=== PATIENT | female | born 1935 | race Caucasian/White ===

== ENCOUNTER 2017-03-09 15:09 | Inpatient (IN) | payer MEDICARE ==
[2017-03-09] MEDS: PANTOPRAZOLE 40 MG TABLET.DR. PO (17:00)
[2017-03-09] MEDS: amLODIPine BESYLATE 5 MG TABLET PO (17:00)
[2017-03-09] MEDS: FERROUS SULFATE 325 MG TABLET. PO (17:00)
[2017-03-09] MEDS: LEVOTHYROXINE 112 MCG TABLET PO (17:00)
[2017-03-09] MEDS: MULTIVITAMIN I-VITE TABLET. PO (17:00)
[2017-03-09 18:29] LABS: ADD MAN DIFF? NO
[2017-03-09 18:32] LABS: BASO % 1 % (0-3); EOS # 0.1 x10^3/uL (0.0-0.7); EOS % 2 % (0-3); HEMATOCRIT 28.3 % (36.0-47.0); HEMOGLOBIN 9.2 g/dL (12.0-15.5); LYMPH # 1.7 x10^3/uL (1.0-4.8); LYMPH % 22 % (24-48); MEAN CORPUSCULAR HEMOGLOBIN 28 pg (25-35); MEAN CORPUSCULAR HGB CONC 32 g/dL (31-37); MEAN CORPUSCULAR VOLUME 88 fL (79-100); MONO # 0.5 x10^3/uL (0.0-1.1); MONO % 7 % (0-9); NEUT # 5.2 x10^3uL (1.8-7.7); NEUT % 69 % (31-73); PLATELET COUNT 208 x10^3/uL (140-400); RED BLOOD COUNT 3.23 x10^6/uL (3.50-5.40); RED CELL DISTRIBUTION WIDTH 15.3 % (11.5-14.5); WHITE BLOOD COUNT 7.5 x10^3/uL (4.0-11.0)
[2017-03-09 18:45] LABS: ALBUMIN/GLOBULIN RATIO 0.7 (1.0-1.7); ALK PHOS 102 U/L (46-116); ALT (SGPT) 15 U/L (14-59); ANION GAP 6 (6-14); AST (SGOT) 20 U/L (15-37); BLOOD UREA NITROGEN 26 mg/dL (7-20); BUN/CREATININE RATIO 19 (6-20); CALCIUM 8.6 mg/dL (8.5-10.1); CARBON DIOXIDE 28 mmol/L (21-32); CHLORIDE 107 mmol/L (98-107); CREATININE 1.4 mg/dL (0.6-1.0); GFR 36.3; GLUCOSE 184 mg/dL (70-99); POTASSIUM 5.5 mmol/L (3.5-5.1); SODIUM 141 mmol/L (136-145); TOTAL BILIRUBIN 0.1 mg/dL (0.2-1.0); TOTAL PROTEIN 7.2 g/dL (6.4-8.2)
[2017-03-09 18:57] LABS: BILIRUBIN,URINE NEGATIVE (NEG); COLOR,URINE YELLOW; GLUCOSE,URINE NEGATIVE (NEG); NITRITE,URINE POSITIVE (NEG); PROTEIN,URINE 100 mg/dL (NEG-TRACE); UROBILINOGEN,URINE 0.2 mg/dL (0.2 mg/dL)
[2017-03-09 19:09] LABS: CLARITY,URINE CLEAR
[2017-03-09 19:12] LABS: BACTERIA,URINE MANY /HPF (0-FEW); SQUAMOUS EPITHELIAL CELL,UR MANY /LPF; WBC,URINE >40 /HPF (0-4)
[2017-03-09 19:41] LABS: SEDIMENTATION RATE 45 (0-25)
[2017-03-09] MEDS ORDERED: oxyCODONE IR 5 MG TABLET PO (20:00)
[2017-03-09] MEDS: PIPERACILLIN/TAZOBACTAM 2.25 GM in IV NORMAL SALINE 50ML 50 ML IV (20:38)
[2017-03-09] MEDS: GABAPENTIN 100 MG CAPSULE. PO (20:42)
[2017-03-09] MEDS: CARISOPRODOL 350 MG TABLET PO (20:42)
[2017-03-09] MEDS: TAMSULOSIN 0.4 MG CAP.ER.24H. PO (20:42)
[2017-03-09] MEDS: HYDROCORTISONE 2.5% RECTAL CREAM 30GM TUBE. RC (21:33)
[2017-03-10] MEDS: PIPERACILLIN/TAZOBACTAM 2.25 GM in IV NORMAL SALINE 50ML 50 ML IV ×4 (00:01→23:00)
[2017-03-10 04:34] LABS: ADD MAN DIFF? NO
[2017-03-10 04:42] LABS: BASO % 1 % (0-3); EOS # 0.2 x10^3/uL (0.0-0.7); EOS % 2 % (0-3); HEMATOCRIT 27.7 % (36.0-47.0); HEMOGLOBIN 9.1 g/dL (12.0-15.5); LYMPH # 1.9 x10^3/uL (1.0-4.8); LYMPH % 26 % (24-48); MEAN CORPUSCULAR HEMOGLOBIN 29 pg (25-35); MEAN CORPUSCULAR HGB CONC 33 g/dL (31-37); MEAN CORPUSCULAR VOLUME 88 fL (79-100); MONO # 0.4 x10^3/uL (0.0-1.1); MONO % 6 % (0-9); NEUT # 4.6 x10^3uL (1.8-7.7); NEUT % 65 % (31-73); PLATELET COUNT 181 x10^3/uL (140-400); RED BLOOD COUNT 3.14 x10^6/uL (3.50-5.40); RED CELL DISTRIBUTION WIDTH 15.4 % (11.5-14.5); WHITE BLOOD COUNT 7.1 x10^3/uL (4.0-11.0)
[2017-03-10] MEDS: IV NORMAL SALINE 1000ML BAG 1,000 ML IV ×2 (04:45→12:46)
[2017-03-10 05:10] LABS: ALBUMIN 2.8 g/dL (3.4-5.0); ALBUMIN/GLOBULIN RATIO 0.7 (1.0-1.7); ALK PHOS 95 U/L (46-116); ALT (SGPT) 12 U/L (14-59); ANION GAP 8 (6-14); AST (SGOT) 18 U/L (15-37); BLOOD UREA NITROGEN 27 mg/dL (7-20); BUN/CREATININE RATIO 18 (6-20); CALCIUM 8.7 mg/dL (8.5-10.1); CARBON DIOXIDE 25 mmol/L (21-32); CHLORIDE 108 mmol/L (98-107); CREATININE 1.5 mg/dL (0.6-1.0); GFR 33.5; GLUCOSE 85 mg/dL (70-99); MAGNESIUM 1.9 mg/dL (1.8-2.4); SODIUM 141 mmol/L (136-145); TOTAL BILIRUBIN 0.3 mg/dL (0.2-1.0); TOTAL PROTEIN 6.6 g/dL (6.4-8.2)
[2017-03-10 05:30] LABS: POTASSIUM 6.2 mmol/L (3.5-5.1)
[2017-03-10] MEDS: LEVOTHYROXINE 112 MCG TABLET PO (05:45)
[2017-03-10] MEDS: PANTOPRAZOLE 40 MG TABLET.DR. PO ×2 (05:45→16:58)
[2017-03-10] MEDS: oxyCODONE IR 5 MG TABLET PO ×3 (05:48→14:10)
[2017-03-10] MEDS: SODIUM POLYSTYRENE SULFONATE 15 GM/60 ML ORAL.SUSP. PO (05:59)
[2017-03-10] MEDS: FERROUS SULFATE 325 MG TABLET. PO (08:33)
[2017-03-10] MEDS: MULTIVITAMIN I-VITE TABLET. PO (08:33)
[2017-03-10] MEDS: amLODIPine BESYLATE 5 MG TABLET PO (08:52)
[2017-03-10] MEDS: HYDROCORTISONE 2.5% RECTAL CREAM 30GM TUBE. RC ×2 (08:52→21:00)
[2017-03-10] MEDS: LACTOBACILLUS RHAMNOSUS GG 1 CAPSULE. PO ×2 (09:52→21:55)
[2017-03-10 12:52] LABS: POTASSIUM 4.7 mmol/L (3.5-5.1)
[2017-03-10 13:25] LABS: LACTIC ACID 0.9 mmol/L (0.4-2.0)
[2017-03-10 14:05] LABS: RETIC COUNT 0.8 % (0.5-2.5)
[2017-03-10 14:21] LABS: THYROID STIM HORMONE (TSH) 0.475 uIU/mL (0.358-3.74)
[2017-03-10 15:29] LABS: % SAT IRON 15 % (15-34); IRON,SERUM 24 ug/dL (50-170)
[2017-03-10 18:28] LABS: LACTATE DEHYDROGENASE 170 U/L (81-234)
[2017-03-10 18:28] LABS: FERRITIN 760 ng/mL (8-252); LIPASE 126 U/L (73-393); URIC ACID 5.9 mg/dL (2.6-6.0)
[2017-03-10] MEDS: TAMSULOSIN 0.4 MG CAP.ER.24H. PO (21:51)
[2017-03-10] MEDS: GABAPENTIN 100 MG CAPSULE. PO (21:51)
[2017-03-10] MEDS: CARISOPRODOL 350 MG TABLET PO (21:51)
[2017-03-11] MEDS: oxyCODONE IR 5 MG TABLET PO ×3 (02:45→13:12)
[2017-03-11] MEDS: PIPERACILLIN/TAZOBACTAM 2.25 GM in IV NORMAL SALINE 50ML 50 ML IV ×2 (06:18→13:58)
[2017-03-11] MEDS: LEVOTHYROXINE 112 MCG TABLET PO (06:18)
[2017-03-11] MEDS: PANTOPRAZOLE 40 MG TABLET.DR. PO ×2 (06:31→16:43)
[2017-03-11 06:41] LABS: ADD MAN DIFF? NO
[2017-03-11 07:09] LABS: BASO % 0 % (0-3); EOS # 0.2 x10^3/uL (0.0-0.7); EOS % 2 % (0-3); HEMOGLOBIN 8.2 g/dL (12.0-15.5); LYMPH # 1.6 x10^3/uL (1.0-4.8); LYMPH % 20 % (24-48); MEAN CORPUSCULAR HEMOGLOBIN 29 pg (25-35); MEAN CORPUSCULAR HGB CONC 33 g/dL (31-37); MEAN CORPUSCULAR VOLUME 88 fL (79-100); MONO # 0.5 x10^3/uL (0.0-1.1); MONO % 6 % (0-9); NEUT # 5.7 x10^3uL (1.8-7.7); NEUT % 71 % (31-73); PLATELET COUNT 150 x10^3/uL (140-400); RED BLOOD COUNT 2.84 x10^6/uL (3.50-5.40); RED CELL DISTRIBUTION WIDTH 15.3 % (11.5-14.5)
[2017-03-11 07:20] LABS: CREATINE KINASE 44 U/L (26-192)
[2017-03-11 07:21] LABS: ANION GAP 8 (6-14); BLOOD UREA NITROGEN 20 mg/dL (7-20); CALCIUM 7.5 mg/dL (8.5-10.1); CARBON DIOXIDE 27 mmol/L (21-32); CHLORIDE 107 mmol/L (98-107); CREATININE 1.5 mg/dL (0.6-1.0); GFR 33.5; GLUCOSE 86 mg/dL (70-99); MAGNESIUM 1.7 mg/dL (1.8-2.4); POTASSIUM 3.9 mmol/L (3.5-5.1); SODIUM 142 mmol/L (136-145)
[2017-03-11] MEDS: LACTOBACILLUS RHAMNOSUS GG 1 CAPSULE. PO ×2 (08:49→20:33)
[2017-03-11] MEDS: MULTIVITAMIN I-VITE TABLET. PO (08:49)
[2017-03-11] MEDS: HYDROCORTISONE 2.5% RECTAL CREAM 30GM TUBE. RC ×2 (08:49→20:34)
[2017-03-11] MEDS: FERROUS SULFATE 325 MG TABLET. PO (08:49)
[2017-03-11] MEDS: amLODIPine BESYLATE 5 MG TABLET PO (08:54)
[2017-03-11 14:14] LABS: POTASSIUM UR 35.1 mmol/L (Not Estab.)
[2017-03-11] MEDS: cefTRIAXone IV Push 1 GM VIAL. IVP (18:05)
[2017-03-11] MEDS: IV NORMAL SALINE 1000ML BAG 1,000 ML IV (18:06)
[2017-03-11] MEDS: diphenhydrAMINE HCL 25 MG CAPSULE PO (19:52)
[2017-03-11] MEDS: HYDROCORTISONE 1% TOPICAL OINTMENT 30GM TUBE. TP (20:32)
[2017-03-11] MEDS: CARISOPRODOL 350 MG TABLET PO (20:33)
[2017-03-11] MEDS: TAMSULOSIN 0.4 MG CAP.ER.24H. PO (20:33)
[2017-03-11] MEDS: GABAPENTIN 100 MG CAPSULE. PO (20:33)
[2017-03-12] MEDS: IV NORMAL SALINE 1000ML BAG 1,000 ML IV ×2 (04:52→17:06)
[2017-03-12] MEDS: diphenhydrAMINE HCL 25 MG CAPSULE PO (04:52)
[2017-03-12] MEDS: LEVOTHYROXINE 112 MCG TABLET PO (04:52)
[2017-03-12] MEDS: PANTOPRAZOLE 40 MG TABLET.DR. PO ×2 (04:52→17:08)
[2017-03-12 05:57] LABS: ADD MAN DIFF? NO
[2017-03-12 06:19] LABS: BASO % 0 % (0-3); EOS # 0.1 x10^3/uL (0.0-0.7); EOS % 2 % (0-3); HEMOGLOBIN 8.7 g/dL (12.0-15.5); LYMPH # 1.3 x10^3/uL (1.0-4.8); LYMPH % 21 % (24-48); MEAN CORPUSCULAR HEMOGLOBIN 29 pg (25-35); MEAN CORPUSCULAR HGB CONC 32 g/dL (31-37); MEAN CORPUSCULAR VOLUME 88 fL (79-100); MONO # 0.5 x10^3/uL (0.0-1.1); MONO % 8 % (0-9); NEUT # 4.3 x10^3uL (1.8-7.7); NEUT % 70 % (31-73); PLATELET COUNT 154 x10^3/uL (140-400); RED BLOOD COUNT 3.06 x10^6/uL (3.50-5.40); WHITE BLOOD COUNT 6.2 x10^3/uL (4.0-11.0)
[2017-03-12 06:29] LABS: ANION GAP 8 (6-14); BLOOD UREA NITROGEN 19 mg/dL (7-20); CARBON DIOXIDE 25 mmol/L (21-32); CHLORIDE 109 mmol/L (98-107); CREATININE 1.4 mg/dL (0.6-1.0); GFR 36.3; GLUCOSE 82 mg/dL (70-99); SODIUM 142 mmol/L (136-145)
[2017-03-12 06:35] LABS: CREATINE KINASE 43 U/L (26-192)
[2017-03-12] MEDS ORDERED: PROCHLORPERAZINE 10 MG/2 ML VIAL. IV (07:00)
[2017-03-12] MEDS ORDERED: ONDANSETRON PF 4 MG/2 ML VIAL. IV (07:00)
[2017-03-12] MEDS ORDERED: LIDOCAINE 1% PF 2 ML VIAL. ID (07:00)
[2017-03-12] MEDS: IV RINGERS,LACTATED 1000ML 1,000 ML IV (07:00)
[2017-03-12] MEDS ORDERED: fentaNYL PF VIAL 100 MCG/2 ML VIAL IV (07:00)
[2017-03-12] MEDS ORDERED: MORPHINE SULFATE 2 MG/ML DISP.SYRIN. IV (07:00)
[2017-03-12] MEDS ORDERED: HYDROmorphone 2 MG/ML VIAL IV (07:00)
[2017-03-12] MEDS ORDERED: SEVOFLURANE 31 TO 60 MINUTES. IH (08:01)
[2017-03-12] MEDS ORDERED: LIDOCAINE 2% PF Vial for OR 5 ML VIAL. (08:01)
[2017-03-12] MEDS ORDERED: PROPOFOL 20 ML IV (08:01)
[2017-03-12] MEDS ORDERED: MORPHINE SULFATE 10 MG/ML VIAL. (08:13)
[2017-03-12] MEDS ORDERED: ePHEDrine PF IN SALINE 50 MG/5 ML DISP.SYRIN IV (08:17)
[2017-03-12] MEDS ORDERED: ONDANSETRON PF 4 MG/2 ML VIAL. (08:23)
[2017-03-12] MEDS ORDERED: DEXAMETHASONE SOD PHOS 20 MG/5 ML VIAL. (08:23)
[2017-03-12] MEDS: fentaNYL PF VIAL 100 MCG/2 ML VIAL IV ×2 (08:46→08:56)
[2017-03-12] MEDS: HYDROCORTISONE 2.5% RECTAL CREAM 30GM TUBE. RC ×2 (09:00→20:05)
[2017-03-12] MEDS: FERROUS SULFATE 325 MG TABLET. PO (10:44)
[2017-03-12] MEDS: LACTOBACILLUS RHAMNOSUS GG 1 CAPSULE. PO ×2 (10:45→20:04)
[2017-03-12] MEDS: MULTIVITAMIN I-VITE TABLET. PO (10:45)
[2017-03-12] MEDS: amLODIPine BESYLATE 5 MG TABLET PO (10:46)
[2017-03-12] MEDS: HYDROCORTISONE 1% TOPICAL OINTMENT 30GM TUBE. TP ×2 (10:47→20:04)
[2017-03-12] MEDS: oxyCODONE IR 5 MG TABLET PO ×3 (10:49→20:04)
[2017-03-12] MEDS: ACETAMINOPHEN 325 MG TABLET. PO ×2 (10:49→17:23)
[2017-03-12] MEDS: cefTRIAXone IV Push 1 GM VIAL. IVP (17:09)
[2017-03-12] MEDS: CARISOPRODOL 350 MG TABLET PO (20:04)
[2017-03-12] MEDS: TAMSULOSIN 0.4 MG CAP.ER.24H. PO (20:04)
[2017-03-12] MEDS: GABAPENTIN 100 MG CAPSULE. PO (20:04)
[2017-03-13] MEDS: oxyCODONE IR 5 MG TABLET PO ×5 (01:20→20:35)
[2017-03-13] MEDS: ACETAMINOPHEN 325 MG TABLET. PO (02:55)
[2017-03-13 04:41] LABS: ADD MAN DIFF? NO
[2017-03-13 04:54] LABS: BASO % 0 % (0-3); EOS % 1 % (0-3); HEMOGLOBIN 8.3 g/dL (12.0-15.5); LYMPH # 1.2 x10^3/uL (1.0-4.8); LYMPH % 13 % (24-48); MEAN CORPUSCULAR HEMOGLOBIN 29 pg (25-35); MEAN CORPUSCULAR HGB CONC 33 g/dL (31-37); MEAN CORPUSCULAR VOLUME 87 fL (79-100); MONO # 0.5 x10^3/uL (0.0-1.1); MONO % 6 % (0-9); NEUT # 7.6 x10^3uL (1.8-7.7); NEUT % 81 % (31-73); PLATELET COUNT 166 x10^3/uL (140-400); RED BLOOD COUNT 2.88 x10^6/uL (3.50-5.40); RED CELL DISTRIBUTION WIDTH 14.7 % (11.5-14.5); WHITE BLOOD COUNT 9.3 x10^3/uL (4.0-11.0)
[2017-03-13 05:27] LABS: ANION GAP 12 (6-14); BLOOD UREA NITROGEN 20 mg/dL (7-20); CALCIUM 8.1 mg/dL (8.5-10.1); CARBON DIOXIDE 23 mmol/L (21-32); CHLORIDE 109 mmol/L (98-107); CREATINE KINASE 42 U/L (26-192); CREATININE 1.3 mg/dL (0.6-1.0); GFR 39.5; GLUCOSE 115 mg/dL (70-99); POTASSIUM 4.4 mmol/L (3.5-5.1); SODIUM 144 mmol/L (136-145)
[2017-03-13] MEDS: IV NORMAL SALINE 1000ML BAG 1,000 ML IV ×2 (06:18→17:14)
[2017-03-13] MEDS: LEVOTHYROXINE 112 MCG TABLET PO (06:19)
[2017-03-13] MEDS: PANTOPRAZOLE 40 MG TABLET.DR. PO ×2 (08:34→15:53)
[2017-03-13] MEDS: MULTIVITAMIN I-VITE TABLET. PO (08:34)
[2017-03-13] MEDS: amLODIPine BESYLATE 5 MG TABLET PO (08:35)
[2017-03-13] MEDS: LACTOBACILLUS RHAMNOSUS GG 1 CAPSULE. PO ×2 (08:35→20:35)
[2017-03-13] MEDS: FERROUS SULFATE 325 MG TABLET. PO (08:35)
[2017-03-13] MEDS: HYDROCORTISONE 2.5% RECTAL CREAM 30GM TUBE. RC ×2 (08:35→20:35)
[2017-03-13] MEDS: HYDROCORTISONE 1% TOPICAL OINTMENT 30GM TUBE. TP ×2 (08:35→20:35)
[2017-03-13] MEDS: cefTRIAXone IV Push 1 GM VIAL. IVP (17:14)
[2017-03-13] MEDS: GABAPENTIN 100 MG CAPSULE. PO (20:35)
[2017-03-13] MEDS: CARISOPRODOL 350 MG TABLET PO (20:35)
[2017-03-13] MEDS: TAMSULOSIN 0.4 MG CAP.ER.24H. PO (20:35)
[2017-03-14] MEDS: oxyCODONE IR 5 MG TABLET PO ×2 (03:44→09:05)
[2017-03-14 04:42] LABS: ADD MAN DIFF? NO
[2017-03-14 04:44] LABS: BASO # 0.1 x10^3/uL (0.0-0.2); BASO % 1 % (0-3); EOS # 0.2 x10^3/uL (0.0-0.7); EOS % 2 % (0-3); HEMATOCRIT 26.6 % (36.0-47.0); HEMOGLOBIN 8.6 g/dL (12.0-15.5); LYMPH # 1.6 x10^3/uL (1.0-4.8); LYMPH % 17 % (24-48); MEAN CORPUSCULAR HEMOGLOBIN 29 pg (25-35); MEAN CORPUSCULAR HGB CONC 32 g/dL (31-37); MEAN CORPUSCULAR VOLUME 88 fL (79-100); MONO # 0.5 x10^3/uL (0.0-1.1); MONO % 6 % (0-9); NEUT # 6.7 x10^3uL (1.8-7.7); NEUT % 74 % (31-73); PLATELET COUNT 175 x10^3/uL (140-400); RED BLOOD COUNT 3.02 x10^6/uL (3.50-5.40); RED CELL DISTRIBUTION WIDTH 15.4 % (11.5-14.5); WHITE BLOOD COUNT 9.1 x10^3/uL (4.0-11.0)
[2017-03-14 05:30] LABS: ANION GAP 10 (6-14); BLOOD UREA NITROGEN 24 mg/dL (7-20); CALCIUM 7.8 mg/dL (8.5-10.1); CARBON DIOXIDE 26 mmol/L (21-32); CHLORIDE 108 mmol/L (98-107); CREATINE KINASE 35 U/L (26-192); CREATININE 1.3 mg/dL (0.6-1.0); GFR 39.5; GLUCOSE 107 mg/dL (70-99); POTASSIUM 4.2 mmol/L (3.5-5.1); SODIUM 144 mmol/L (136-145)
[2017-03-14] MEDS: LEVOTHYROXINE 112 MCG TABLET PO (05:46)
[2017-03-14] MEDS: PANTOPRAZOLE 40 MG TABLET.DR. PO (05:46)
[2017-03-14] MEDS: IV NORMAL SALINE 1000ML BAG 1,000 ML IV (07:50)
[2017-03-14] MEDS: MULTIVITAMIN I-VITE TABLET. PO (09:00)
[2017-03-14] MEDS: HYDROCORTISONE 2.5% RECTAL CREAM 30GM TUBE. RC (09:00)
[2017-03-14] MEDS: LACTOBACILLUS RHAMNOSUS GG 1 CAPSULE. PO (09:00)
[2017-03-14] MEDS: FERROUS SULFATE 325 MG TABLET. PO (09:00)
[2017-03-14] MEDS: amLODIPine BESYLATE 5 MG TABLET PO (09:01)
[2017-03-14] MEDS: HYDROCORTISONE 1% TOPICAL OINTMENT 30GM TUBE. TP (09:06)
[2017-03-14] MEDS: cefTRIAXone IV Push 1 GM VIAL. IVP (13:00)
[2017-03-14 22:20] LABS: C DIFF BY PCR Negative (Negative)
== END 2017-03-14 16:12 | disposition home or self-care (01) | DRG 673 ==
LOC: 5 NORTH 15:09
PROC: 0JBR0ZZ Excision of Left Foot Subcutaneous Tissue and Fascia, Open Approach (ICD-10-PCS; principal; 2017-03-12 07:58)
DX: N17.9 Acute kidney failure, unspecified (principal); L89.624 Pressure ulcer of left heel, stage 4; A04.72 Enterocolitis due to Clostridium difficile, not specified as recurrent; E44.0 Moderate protein-calorie malnutrition; I13.0 Hypertensive heart and chronic kidney disease with heart failure and stage 1 through stage 4 chronic kidney disease, or unspecified chronic kidney disease; E87.5 Hyperkalemia; I50.9 Heart failure, unspecified; N39.0 Urinary tract infection, site not specified; N18.4 Chronic kidney disease, stage 4 (severe); L89.620 Pressure ulcer of left heel, unstageable; B96.20 Unspecified Escherichia coli [E. coli] as the cause of diseases classified elsewhere; D64.9 Anemia, unspecified; E03.9 Hypothyroidism, unspecified; E78.5 Hyperlipidemia, unspecified; G57.90 Unspecified mononeuropathy of unspecified lower limb; G89.29 Other chronic pain; I34.0 Nonrheumatic mitral (valve) insufficiency; K21.9 Gastro-esophageal reflux disease without esophagitis; M06.9 Rheumatoid arthritis, unspecified; Z96.653 Presence of artificial knee joint, bilateral; M19.90 Unspecified osteoarthritis, unspecified site; M24.561 Contracture, right knee; M24.562 Contracture, left knee; N20.0 Calculus of kidney; Z82.49 Family history of ischemic heart disease and other diseases of the circulatory system; Z90.710 Acquired absence of both cervix and uterus; Z87.81 Personal history of (healed) traumatic fracture
CPT/HCPCS: 36415; 71045; 73630; 80048; 80053; 81001; 82550; 82728; 83540; 83550; 83605; 83615; 83690; 83735; 84132; 84133; 84443; 84550; 85025; 85045; 85651; 87040; 87071; 87075; 87086; 87186; 87205; 87324; 93926; 93971; 97161-GP; 97165-GO; J0696; J1100; J2020; J2270; J2405; J2543; J2704; J3010; J7030; Q0163

== ENCOUNTER → 2017-03-22 | Outpatient (CLI) | payer MEDICARE | END | disposition home or self-care (01) | LOC: PMGWOUND 10:51 | DX: E11.621 Type 2 diabetes mellitus with foot ulcer (principal); L97.421 Non-pressure chronic ulcer of left heel and midfoot limited to breakdown of skin; L89.623 Pressure ulcer of left heel, stage 3; L98.411 Non-pressure chronic ulcer of buttock limited to breakdown of skin; L89.323 Pressure ulcer of left buttock, stage 3; E78.5 Hyperlipidemia, unspecified; K21.9 Gastro-esophageal reflux disease without esophagitis; E11.42 Type 2 diabetes mellitus with diabetic polyneuropathy; M19.90 Unspecified osteoarthritis, unspecified site; E03.9 Hypothyroidism, unspecified; E11.22 Type 2 diabetes mellitus with diabetic chronic kidney disease; I13.0 Hypertensive heart and chronic kidney disease with heart failure and stage 1 through stage 4 chronic kidney disease, or unspecified chronic kidney disease; N18.4 Chronic kidney disease, stage 4 (severe); I50.9 Heart failure, unspecified; G89.29 Other chronic pain; M06.9 Rheumatoid arthritis, unspecified; Z87.891 Personal history of nicotine dependence; Z79.4 Long term (current) use of insulin | CPT/HCPCS: 97597 ==

== ENCOUNTER → 2017-04-05 | Outpatient (CLI) | payer MEDICARE | END | disposition home or self-care (01) | LOC: PMGWOUND 10:25 | DX: E11.621 Type 2 diabetes mellitus with foot ulcer (principal); L97.421 Non-pressure chronic ulcer of left heel and midfoot limited to breakdown of skin; L89.623 Pressure ulcer of left heel, stage 3; L98.411 Non-pressure chronic ulcer of buttock limited to breakdown of skin; L89.323 Pressure ulcer of left buttock, stage 3; E78.5 Hyperlipidemia, unspecified; K21.9 Gastro-esophageal reflux disease without esophagitis; E11.42 Type 2 diabetes mellitus with diabetic polyneuropathy; M19.90 Unspecified osteoarthritis, unspecified site; E03.9 Hypothyroidism, unspecified; E11.22 Type 2 diabetes mellitus with diabetic chronic kidney disease; I13.0 Hypertensive heart and chronic kidney disease with heart failure and stage 1 through stage 4 chronic kidney disease, or unspecified chronic kidney disease; N18.4 Chronic kidney disease, stage 4 (severe); I50.9 Heart failure, unspecified; G89.29 Other chronic pain; M06.9 Rheumatoid arthritis, unspecified; Z87.891 Personal history of nicotine dependence; Z79.4 Long term (current) use of insulin; Z90.710 Acquired absence of both cervix and uterus | CPT/HCPCS: 97597 ==

== ENCOUNTER → 2017-04-12 | Outpatient (CLI) | payer MEDICARE | END | disposition home or self-care (01) | LOC: PMGWOUND 10:16 | DX: E11.621 Type 2 diabetes mellitus with foot ulcer (principal); L97.421 Non-pressure chronic ulcer of left heel and midfoot limited to breakdown of skin; L89.623 Pressure ulcer of left heel, stage 3; K21.9 Gastro-esophageal reflux disease without esophagitis; E11.22 Type 2 diabetes mellitus with diabetic chronic kidney disease; I13.0 Hypertensive heart and chronic kidney disease with heart failure and stage 1 through stage 4 chronic kidney disease, or unspecified chronic kidney disease; N18.4 Chronic kidney disease, stage 4 (severe); I50.9 Heart failure, unspecified; E78.5 Hyperlipidemia, unspecified; E03.9 Hypothyroidism, unspecified; G89.29 Other chronic pain; E11.42 Type 2 diabetes mellitus with diabetic polyneuropathy; M19.90 Unspecified osteoarthritis, unspecified site; M06.9 Rheumatoid arthritis, unspecified; Z87.891 Personal history of nicotine dependence; Z96.653 Presence of artificial knee joint, bilateral; Z90.710 Acquired absence of both cervix and uterus; Z79.4 Long term (current) use of insulin | CPT/HCPCS: 97597 ==

== ENCOUNTER → 2017-04-19 | Outpatient (CLI) | payer MEDICARE | END | disposition home or self-care (01) | LOC: PMGWOUND 10:25 | DX: E11.621 Type 2 diabetes mellitus with foot ulcer (principal); L97.421 Non-pressure chronic ulcer of left heel and midfoot limited to breakdown of skin; L89.623 Pressure ulcer of left heel, stage 3; K21.9 Gastro-esophageal reflux disease without esophagitis; E11.22 Type 2 diabetes mellitus with diabetic chronic kidney disease; I13.0 Hypertensive heart and chronic kidney disease with heart failure and stage 1 through stage 4 chronic kidney disease, or unspecified chronic kidney disease; N18.4 Chronic kidney disease, stage 4 (severe); I50.9 Heart failure, unspecified; E78.5 Hyperlipidemia, unspecified; E03.9 Hypothyroidism, unspecified; G89.29 Other chronic pain; E11.42 Type 2 diabetes mellitus with diabetic polyneuropathy; M19.90 Unspecified osteoarthritis, unspecified site; M06.9 Rheumatoid arthritis, unspecified; Z87.891 Personal history of nicotine dependence; Z96.653 Presence of artificial knee joint, bilateral; Z90.710 Acquired absence of both cervix and uterus; Z79.4 Long term (current) use of insulin | CPT/HCPCS: 97597 ==

== ENCOUNTER → 2017-04-26 | Outpatient (CLI) | payer MEDICARE | END | disposition home or self-care (01) | LOC: PMGWOUND 10:44 | DX: E11.621 Type 2 diabetes mellitus with foot ulcer (principal); L97.421 Non-pressure chronic ulcer of left heel and midfoot limited to breakdown of skin; L89.623 Pressure ulcer of left heel, stage 3; E78.5 Hyperlipidemia, unspecified; K21.9 Gastro-esophageal reflux disease without esophagitis; M19.90 Unspecified osteoarthritis, unspecified site; E03.9 Hypothyroidism, unspecified; Z90.710 Acquired absence of both cervix and uterus; Z87.891 Personal history of nicotine dependence; E11.42 Type 2 diabetes mellitus with diabetic polyneuropathy; E11.22 Type 2 diabetes mellitus with diabetic chronic kidney disease; I13.0 Hypertensive heart and chronic kidney disease with heart failure and stage 1 through stage 4 chronic kidney disease, or unspecified chronic kidney disease; N18.4 Chronic kidney disease, stage 4 (severe); I50.9 Heart failure, unspecified; Z79.4 Long term (current) use of insulin; M06.9 Rheumatoid arthritis, unspecified | CPT/HCPCS: 11042 ==

== ENCOUNTER → 2017-05-03 | Outpatient (CLI) | payer MEDICARE | END | disposition home or self-care (01) | LOC: PMGWOUND 10:51 | DX: E11.621 Type 2 diabetes mellitus with foot ulcer (principal); L97.421 Non-pressure chronic ulcer of left heel and midfoot limited to breakdown of skin; L89.623 Pressure ulcer of left heel, stage 3; E78.5 Hyperlipidemia, unspecified; K21.9 Gastro-esophageal reflux disease without esophagitis; M19.90 Unspecified osteoarthritis, unspecified site; E03.9 Hypothyroidism, unspecified; E11.42 Type 2 diabetes mellitus with diabetic polyneuropathy; E11.22 Type 2 diabetes mellitus with diabetic chronic kidney disease; I13.0 Hypertensive heart and chronic kidney disease with heart failure and stage 1 through stage 4 chronic kidney disease, or unspecified chronic kidney disease; N18.4 Chronic kidney disease, stage 4 (severe); I50.9 Heart failure, unspecified; M06.9 Rheumatoid arthritis, unspecified; G89.29 Other chronic pain; Z79.4 Long term (current) use of insulin; Z96.653 Presence of artificial knee joint, bilateral; Z90.710 Acquired absence of both cervix and uterus; Z87.891 Personal history of nicotine dependence | CPT/HCPCS: 97597 ==

== ENCOUNTER → 2017-05-10 | Outpatient (CLI) | payer MEDICARE | END | disposition home or self-care (01) | LOC: PMGWOUND 10:50 | DX: E11.621 Type 2 diabetes mellitus with foot ulcer (principal); L97.421 Non-pressure chronic ulcer of left heel and midfoot limited to breakdown of skin; L89.623 Pressure ulcer of left heel, stage 3; E11.622 Type 2 diabetes mellitus with other skin ulcer; L98.491 Non-pressure chronic ulcer of skin of other sites limited to breakdown of skin; L89.152 Pressure ulcer of sacral region, stage 2; E78.5 Hyperlipidemia, unspecified; K21.9 Gastro-esophageal reflux disease without esophagitis; M19.90 Unspecified osteoarthritis, unspecified site; E03.9 Hypothyroidism, unspecified; E11.42 Type 2 diabetes mellitus with diabetic polyneuropathy; E11.22 Type 2 diabetes mellitus with diabetic chronic kidney disease; I13.0 Hypertensive heart and chronic kidney disease with heart failure and stage 1 through stage 4 chronic kidney disease, or unspecified chronic kidney disease; N18.4 Chronic kidney disease, stage 4 (severe); I50.9 Heart failure, unspecified; M06.9 Rheumatoid arthritis, unspecified; G89.29 Other chronic pain; Z79.4 Long term (current) use of insulin; Z96.653 Presence of artificial knee joint, bilateral; Z90.710 Acquired absence of both cervix and uterus; Z87.891 Personal history of nicotine dependence | CPT/HCPCS: 97597 ==

== ENCOUNTER → 2017-05-17 | Outpatient (CLI) | payer MEDICARE | END | disposition home or self-care (01) | LOC: PMGWOUND 10:50 | DX: E11.621 Type 2 diabetes mellitus with foot ulcer (principal); L97.421 Non-pressure chronic ulcer of left heel and midfoot limited to breakdown of skin; L89.623 Pressure ulcer of left heel, stage 3; E11.622 Type 2 diabetes mellitus with other skin ulcer; L98.491 Non-pressure chronic ulcer of skin of other sites limited to breakdown of skin; L89.152 Pressure ulcer of sacral region, stage 2; E78.5 Hyperlipidemia, unspecified; K21.9 Gastro-esophageal reflux disease without esophagitis; M19.90 Unspecified osteoarthritis, unspecified site; E03.9 Hypothyroidism, unspecified; E11.42 Type 2 diabetes mellitus with diabetic polyneuropathy; E11.22 Type 2 diabetes mellitus with diabetic chronic kidney disease; I13.0 Hypertensive heart and chronic kidney disease with heart failure and stage 1 through stage 4 chronic kidney disease, or unspecified chronic kidney disease; N18.4 Chronic kidney disease, stage 4 (severe); I50.9 Heart failure, unspecified; M06.9 Rheumatoid arthritis, unspecified; G89.29 Other chronic pain; Z79.4 Long term (current) use of insulin; Z96.653 Presence of artificial knee joint, bilateral; Z90.710 Acquired absence of both cervix and uterus; Z87.891 Personal history of nicotine dependence | CPT/HCPCS: 97597 ==

== ENCOUNTER → 2017-05-24 | Outpatient (CLI) | payer MEDICARE | END | disposition home or self-care (01) | LOC: PMGWOUND 09:41 | DX: E11.621 Type 2 diabetes mellitus with foot ulcer (principal); L97.421 Non-pressure chronic ulcer of left heel and midfoot limited to breakdown of skin; L89.623 Pressure ulcer of left heel, stage 3; E11.622 Type 2 diabetes mellitus with other skin ulcer; L98.491 Non-pressure chronic ulcer of skin of other sites limited to breakdown of skin; L89.152 Pressure ulcer of sacral region, stage 2; K21.9 Gastro-esophageal reflux disease without esophagitis; M19.90 Unspecified osteoarthritis, unspecified site; E03.9 Hypothyroidism, unspecified; E11.42 Type 2 diabetes mellitus with diabetic polyneuropathy; E11.22 Type 2 diabetes mellitus with diabetic chronic kidney disease; I13.0 Hypertensive heart and chronic kidney disease with heart failure and stage 1 through stage 4 chronic kidney disease, or unspecified chronic kidney disease; N18.4 Chronic kidney disease, stage 4 (severe); I50.9 Heart failure, unspecified; M06.9 Rheumatoid arthritis, unspecified; G89.29 Other chronic pain; Z79.4 Long term (current) use of insulin; Z96.653 Presence of artificial knee joint, bilateral; Z90.710 Acquired absence of both cervix and uterus; Z87.891 Personal history of nicotine dependence | CPT/HCPCS: 11042 ==

== ENCOUNTER → 2017-05-30 | Outpatient (CLI) | payer MEDICARE | END | disposition home or self-care (01) | LOC: PMGWOUND 11:55 | DX: E11.621 Type 2 diabetes mellitus with foot ulcer (principal); L89.623 Pressure ulcer of left heel, stage 3; L97.421 Non-pressure chronic ulcer of left heel and midfoot limited to breakdown of skin; E11.622 Type 2 diabetes mellitus with other skin ulcer; L89.152 Pressure ulcer of sacral region, stage 2; L98.491 Non-pressure chronic ulcer of skin of other sites limited to breakdown of skin; K21.9 Gastro-esophageal reflux disease without esophagitis; M19.90 Unspecified osteoarthritis, unspecified site; E03.9 Hypothyroidism, unspecified; E11.42 Type 2 diabetes mellitus with diabetic polyneuropathy; E11.22 Type 2 diabetes mellitus with diabetic chronic kidney disease; I13.0 Hypertensive heart and chronic kidney disease with heart failure and stage 1 through stage 4 chronic kidney disease, or unspecified chronic kidney disease; N18.4 Chronic kidney disease, stage 4 (severe); I50.9 Heart failure, unspecified; M06.9 Rheumatoid arthritis, unspecified; G89.29 Other chronic pain; Z79.4 Long term (current) use of insulin; Z96.653 Presence of artificial knee joint, bilateral; Z90.710 Acquired absence of both cervix and uterus; Z87.891 Personal history of nicotine dependence | CPT/HCPCS: 99214 ==

== ENCOUNTER → 2017-06-07 | Outpatient (CLI) | payer MEDICARE | END | disposition home or self-care (01) | LOC: PMGWOUND 10:59 | DX: E11.622 Type 2 diabetes mellitus with other skin ulcer (principal); L89.150 Pressure ulcer of sacral region, unstageable; L98.491 Non-pressure chronic ulcer of skin of other sites limited to breakdown of skin; E11.42 Type 2 diabetes mellitus with diabetic polyneuropathy; E11.22 Type 2 diabetes mellitus with diabetic chronic kidney disease; I13.0 Hypertensive heart and chronic kidney disease with heart failure and stage 1 through stage 4 chronic kidney disease, or unspecified chronic kidney disease; N18.4 Chronic kidney disease, stage 4 (severe); I50.9 Heart failure, unspecified; K21.9 Gastro-esophageal reflux disease without esophagitis; M19.90 Unspecified osteoarthritis, unspecified site; E03.9 Hypothyroidism, unspecified; M06.9 Rheumatoid arthritis, unspecified; G89.29 Other chronic pain; Z79.4 Long term (current) use of insulin; Z96.653 Presence of artificial knee joint, bilateral; Z90.710 Acquired absence of both cervix and uterus; Z87.891 Personal history of nicotine dependence | CPT/HCPCS: 99214 ==

== ENCOUNTER → 2017-06-14 | Outpatient (CLI) | payer MEDICARE | END | disposition home or self-care (01) | LOC: PMGWOUND 11:00 | DX: E11.622 Type 2 diabetes mellitus with other skin ulcer (principal); L89.150 Pressure ulcer of sacral region, unstageable; E11.621 Type 2 diabetes mellitus with foot ulcer; L89.623 Pressure ulcer of left heel, stage 3; L97.421 Non-pressure chronic ulcer of left heel and midfoot limited to breakdown of skin; E11.42 Type 2 diabetes mellitus with diabetic polyneuropathy; E11.22 Type 2 diabetes mellitus with diabetic chronic kidney disease; I13.0 Hypertensive heart and chronic kidney disease with heart failure and stage 1 through stage 4 chronic kidney disease, or unspecified chronic kidney disease; N18.4 Chronic kidney disease, stage 4 (severe); I50.9 Heart failure, unspecified; K21.9 Gastro-esophageal reflux disease without esophagitis; M19.90 Unspecified osteoarthritis, unspecified site; E78.5 Hyperlipidemia, unspecified; E03.9 Hypothyroidism, unspecified; M06.9 Rheumatoid arthritis, unspecified; G89.29 Other chronic pain; Z79.4 Long term (current) use of insulin; Z96.653 Presence of artificial knee joint, bilateral; Z90.710 Acquired absence of both cervix and uterus; Z87.891 Personal history of nicotine dependence | CPT/HCPCS: 97597 ==

== ENCOUNTER → 2017-06-21 | Outpatient (CLI) | payer MEDICARE | END | disposition home or self-care (01) | LOC: PMGWOUND 10:41 | DX: E11.621 Type 2 diabetes mellitus with foot ulcer (principal); L89.150 Pressure ulcer of sacral region, unstageable; L89.623 Pressure ulcer of left heel, stage 3; L97.421 Non-pressure chronic ulcer of left heel and midfoot limited to breakdown of skin; E11.622 Type 2 diabetes mellitus with other skin ulcer; L98.491 Non-pressure chronic ulcer of skin of other sites limited to breakdown of skin; K21.9 Gastro-esophageal reflux disease without esophagitis; E11.22 Type 2 diabetes mellitus with diabetic chronic kidney disease; I13.0 Hypertensive heart and chronic kidney disease with heart failure and stage 1 through stage 4 chronic kidney disease, or unspecified chronic kidney disease; N18.4 Chronic kidney disease, stage 4 (severe); I50.9 Heart failure, unspecified; E03.9 Hypothyroidism, unspecified; G89.29 Other chronic pain; M06.9 Rheumatoid arthritis, unspecified; E11.42 Type 2 diabetes mellitus with diabetic polyneuropathy; E78.5 Hyperlipidemia, unspecified; M19.90 Unspecified osteoarthritis, unspecified site; Z96.653 Presence of artificial knee joint, bilateral; Z90.710 Acquired absence of both cervix and uterus; Z79.4 Long term (current) use of insulin; Z87.891 Personal history of nicotine dependence; Z99.2 Dependence on renal dialysis | CPT/HCPCS: 99214 ==

== ENCOUNTER 2017-07-05 11:56 | Day surgery (SDC) | payer MEDICARE ==
[~2017-07-05 11:56] MED LIST: LIDOCAINE 1% PF 2 ML VIAL. ID; MORPHINE SULFATE 4 MG/ML DISP.SYRIN. IV; ONDANSETRON PF 4 MG/2 ML VIAL. IV; PROCHLORPERAZINE 10 MG/2 ML VIAL. IV; fentaNYL PF VIAL 100 MCG/2 ML VIAL IV
[2017-07-05] MEDS: IV RINGERS,LACTATED 1000ML 1,000 ML IV (13:05)
[2017-07-05] MEDS ORDERED: ROCURONIUM 50 MG/5 ML VIAL. (13:46)
[2017-07-05] MEDS ORDERED: LIDOCAINE 1% PF 5 ML VIAL. (13:47)
[2017-07-05] MEDS ORDERED: ONDANSETRON PF 4 MG/2 ML VIAL. (13:47)
[2017-07-05] MEDS ORDERED: PROPOFOL 20 ML IV (13:47)
[2017-07-05] MEDS ORDERED: fentaNYL PF VIAL 100 MCG/2 ML VIAL (13:47)
[2017-07-05] MEDS ORDERED: PHENYLEPHRINE in 0.9% NACL PF 1 MG/10 ML SYRINGE. IV ×2 (14:20→14:22)
[2017-07-05] MEDS ORDERED: GLYCOPYRROLATE 1 MG/5 ML VIAL. (14:20)
[2017-07-05] MEDS ORDERED: NEOSTIGMINE 10 MG/10 ML VIAL. (14:22)
[2017-07-05] MEDS: fentaNYL PF VIAL 100 MCG/2 ML VIAL IV ×2 (15:03→15:20)
[2017-07-05] MEDS: ACETAMINOPHEN 325 MG TABLET. PO (15:22)
== END 2017-07-05 16:24 | disposition home or self-care (01) ==
LOC: SURG 11:56
DX: L89.159 Pressure ulcer of sacral region, unspecified stage (principal); E78.00 Pure hypercholesterolemia, unspecified; K21.9 Gastro-esophageal reflux disease without esophagitis; M19.90 Unspecified osteoarthritis, unspecified site; E11.622 Type 2 diabetes mellitus with other skin ulcer; E11.22 Type 2 diabetes mellitus with diabetic chronic kidney disease; E11.42 Type 2 diabetes mellitus with diabetic polyneuropathy; E11.621 Type 2 diabetes mellitus with foot ulcer; I12.9 Hypertensive chronic kidney disease with stage 1 through stage 4 chronic kidney disease, or unspecified chronic kidney disease; N18.4 Chronic kidney disease, stage 4 (severe); M06.9 Rheumatoid arthritis, unspecified; D64.9 Anemia, unspecified; Z96.653 Presence of artificial knee joint, bilateral; E03.9 Hypothyroidism, unspecified; Z98.890 Other specified postprocedural states; Z98.41 Cataract extraction status, right eye; Z90.710 Acquired absence of both cervix and uterus; Z86.010 Personal history of colon polyps; Z90.49 Acquired absence of other specified parts of digestive tract; Z87.440 Personal history of urinary (tract) infections; Z98.42 Cataract extraction status, left eye; E78.5 Hyperlipidemia, unspecified; Z87.891 Personal history of nicotine dependence
CPT/HCPCS: 11042; 88304; A7015; J2370; J2405; J2704; J2710; J3010; J3490

== ENCOUNTER → 2017-07-12 | Outpatient (CLI) | payer MEDICARE | END | disposition home or self-care (01) | LOC: PMGWOUND 11:02 | DX: E11.622 Type 2 diabetes mellitus with other skin ulcer (principal); L89.154 Pressure ulcer of sacral region, stage 4; L98.492 Non-pressure chronic ulcer of skin of other sites with fat layer exposed; E11.621 Type 2 diabetes mellitus with foot ulcer; L89.623 Pressure ulcer of left heel, stage 3; L97.421 Non-pressure chronic ulcer of left heel and midfoot limited to breakdown of skin; L98.491 Non-pressure chronic ulcer of skin of other sites limited to breakdown of skin; K21.9 Gastro-esophageal reflux disease without esophagitis; E11.22 Type 2 diabetes mellitus with diabetic chronic kidney disease; I13.0 Hypertensive heart and chronic kidney disease with heart failure and stage 1 through stage 4 chronic kidney disease, or unspecified chronic kidney disease; N18.4 Chronic kidney disease, stage 4 (severe); I50.9 Heart failure, unspecified; E03.9 Hypothyroidism, unspecified; G89.29 Other chronic pain; M06.9 Rheumatoid arthritis, unspecified; E11.42 Type 2 diabetes mellitus with diabetic polyneuropathy; E78.5 Hyperlipidemia, unspecified; M19.90 Unspecified osteoarthritis, unspecified site; Z96.653 Presence of artificial knee joint, bilateral; Z90.710 Acquired absence of both cervix and uterus; Z79.4 Long term (current) use of insulin; Z87.891 Personal history of nicotine dependence; Z99.2 Dependence on renal dialysis | CPT/HCPCS: 97597; 97598; 97605 ==

== ENCOUNTER → 2017-07-19 | Outpatient (CLI) | payer MEDICARE | END | disposition home or self-care (01) | LOC: PMGWOUND 10:13 | DX: E11.622 Type 2 diabetes mellitus with other skin ulcer (principal); L89.154 Pressure ulcer of sacral region, stage 4; L98.492 Non-pressure chronic ulcer of skin of other sites with fat layer exposed; K21.9 Gastro-esophageal reflux disease without esophagitis; E11.22 Type 2 diabetes mellitus with diabetic chronic kidney disease; I13.0 Hypertensive heart and chronic kidney disease with heart failure and stage 1 through stage 4 chronic kidney disease, or unspecified chronic kidney disease; N18.4 Chronic kidney disease, stage 4 (severe); I50.9 Heart failure, unspecified; E03.9 Hypothyroidism, unspecified; G89.29 Other chronic pain; M06.9 Rheumatoid arthritis, unspecified; E11.42 Type 2 diabetes mellitus with diabetic polyneuropathy; E78.5 Hyperlipidemia, unspecified; Z99.2 Dependence on renal dialysis; M19.90 Unspecified osteoarthritis, unspecified site; Z96.653 Presence of artificial knee joint, bilateral; Z90.710 Acquired absence of both cervix and uterus; Z79.4 Long term (current) use of insulin; Z87.891 Personal history of nicotine dependence; E78.00 Pure hypercholesterolemia, unspecified | CPT/HCPCS: 97597; 97605 ==

== ENCOUNTER → 2017-07-26 | Outpatient (CLI) | payer MEDICARE | END | disposition home or self-care (01) | LOC: PMGWOUND 11:30 | DX: E11.622 Type 2 diabetes mellitus with other skin ulcer (principal); L89.154 Pressure ulcer of sacral region, stage 4; L98.492 Non-pressure chronic ulcer of skin of other sites with fat layer exposed; K21.9 Gastro-esophageal reflux disease without esophagitis; E11.22 Type 2 diabetes mellitus with diabetic chronic kidney disease; I13.0 Hypertensive heart and chronic kidney disease with heart failure and stage 1 through stage 4 chronic kidney disease, or unspecified chronic kidney disease; N18.4 Chronic kidney disease, stage 4 (severe); I50.9 Heart failure, unspecified; E03.9 Hypothyroidism, unspecified; G89.29 Other chronic pain; M06.9 Rheumatoid arthritis, unspecified; E11.42 Type 2 diabetes mellitus with diabetic polyneuropathy; E78.5 Hyperlipidemia, unspecified; Z99.2 Dependence on renal dialysis; M19.90 Unspecified osteoarthritis, unspecified site; Z96.653 Presence of artificial knee joint, bilateral; Z90.710 Acquired absence of both cervix and uterus; Z79.4 Long term (current) use of insulin; Z87.891 Personal history of nicotine dependence; E78.00 Pure hypercholesterolemia, unspecified | CPT/HCPCS: 11042; 97597; 97605 ==

== ENCOUNTER → 2017-08-02 | Outpatient (CLI) | payer MEDICARE | END | disposition home or self-care (01) | LOC: PMGWOUND 10:51 | DX: E11.622 Type 2 diabetes mellitus with other skin ulcer (principal); L98.491 Non-pressure chronic ulcer of skin of other sites limited to breakdown of skin; L89.154 Pressure ulcer of sacral region, stage 4; K21.9 Gastro-esophageal reflux disease without esophagitis; E11.22 Type 2 diabetes mellitus with diabetic chronic kidney disease; I13.0 Hypertensive heart and chronic kidney disease with heart failure and stage 1 through stage 4 chronic kidney disease, or unspecified chronic kidney disease; N18.4 Chronic kidney disease, stage 4 (severe); I50.9 Heart failure, unspecified; E78.5 Hyperlipidemia, unspecified; E03.9 Hypothyroidism, unspecified; G89.29 Other chronic pain; E78.00 Pure hypercholesterolemia, unspecified; E11.42 Type 2 diabetes mellitus with diabetic polyneuropathy; M19.90 Unspecified osteoarthritis, unspecified site; M06.9 Rheumatoid arthritis, unspecified; Z90.49 Acquired absence of other specified parts of digestive tract; Z90.710 Acquired absence of both cervix and uterus; Z87.891 Personal history of nicotine dependence; Z96.653 Presence of artificial knee joint, bilateral; Z79.4 Long term (current) use of insulin; Z99.2 Dependence on renal dialysis | CPT/HCPCS: 97597 ==

== ENCOUNTER → 2017-08-10 | Outpatient (CLI) | payer MEDICARE | END | disposition home or self-care (01) | LOC: US 13:28 | DX: M79.89 Other specified soft tissue disorders (principal); I13.0 Hypertensive heart and chronic kidney disease with heart failure and stage 1 through stage 4 chronic kidney disease, or unspecified chronic kidney disease; E11.22 Type 2 diabetes mellitus with diabetic chronic kidney disease; I50.9 Heart failure, unspecified; N18.4 Chronic kidney disease, stage 4 (severe); K21.9 Gastro-esophageal reflux disease without esophagitis; E87.5 Hyperkalemia; E78.00 Pure hypercholesterolemia, unspecified | CPT/HCPCS: 93971 ==

== ENCOUNTER → 2017-08-23 | Outpatient (CLI) | payer MEDICARE | END | disposition home or self-care (01) | LOC: PMGWOUND 10:30 | DX: E11.622 Type 2 diabetes mellitus with other skin ulcer (principal); L89.154 Pressure ulcer of sacral region, stage 4; L89.893 Pressure ulcer of other site, stage 3; L98.491 Non-pressure chronic ulcer of skin of other sites limited to breakdown of skin; E11.621 Type 2 diabetes mellitus with foot ulcer; L97.421 Non-pressure chronic ulcer of left heel and midfoot limited to breakdown of skin; K21.9 Gastro-esophageal reflux disease without esophagitis; E78.00 Pure hypercholesterolemia, unspecified; E03.9 Hypothyroidism, unspecified; E11.22 Type 2 diabetes mellitus with diabetic chronic kidney disease; I13.0 Hypertensive heart and chronic kidney disease with heart failure and stage 1 through stage 4 chronic kidney disease, or unspecified chronic kidney disease; N18.4 Chronic kidney disease, stage 4 (severe); I50.9 Heart failure, unspecified; G89.29 Other chronic pain; E11.42 Type 2 diabetes mellitus with diabetic polyneuropathy; E11.36 Type 2 diabetes mellitus with diabetic cataract; E78.5 Hyperlipidemia, unspecified; M06.9 Rheumatoid arthritis, unspecified; Z90.710 Acquired absence of both cervix and uterus; Z90.49 Acquired absence of other specified parts of digestive tract; Z96.653 Presence of artificial knee joint, bilateral; Z87.891 Personal history of nicotine dependence; Z79.4 Long term (current) use of insulin; Z99.2 Dependence on renal dialysis | CPT/HCPCS: 11042; 97597 ==

== ENCOUNTER → 2017-08-30 | Outpatient (CLI) | payer MEDICARE | END | disposition home or self-care (01) | LOC: PMGWOUND 10:45 | DX: E11.621 Type 2 diabetes mellitus with foot ulcer (principal); L97.421 Non-pressure chronic ulcer of left heel and midfoot limited to breakdown of skin; E11.622 Type 2 diabetes mellitus with other skin ulcer; L89.154 Pressure ulcer of sacral region, stage 4; L89.893 Pressure ulcer of other site, stage 3; L98.491 Non-pressure chronic ulcer of skin of other sites limited to breakdown of skin; K21.9 Gastro-esophageal reflux disease without esophagitis; E03.9 Hypothyroidism, unspecified; E11.22 Type 2 diabetes mellitus with diabetic chronic kidney disease; I13.0 Hypertensive heart and chronic kidney disease with heart failure and stage 1 through stage 4 chronic kidney disease, or unspecified chronic kidney disease; N18.4 Chronic kidney disease, stage 4 (severe); I50.9 Heart failure, unspecified; G89.29 Other chronic pain; E11.42 Type 2 diabetes mellitus with diabetic polyneuropathy; E11.36 Type 2 diabetes mellitus with diabetic cataract; E78.5 Hyperlipidemia, unspecified; E78.00 Pure hypercholesterolemia, unspecified; M06.9 Rheumatoid arthritis, unspecified; Z90.710 Acquired absence of both cervix and uterus; Z90.49 Acquired absence of other specified parts of digestive tract; Z96.653 Presence of artificial knee joint, bilateral; Z87.891 Personal history of nicotine dependence; Z79.4 Long term (current) use of insulin; Z99.2 Dependence on renal dialysis | CPT/HCPCS: 97597 ==

== ENCOUNTER → 2017-09-13 | Outpatient (CLI) | payer MEDICARE ==
[2017-07-05 15:38] VITALS: BP 115/64
[~2017-09-13] MED LIST changes: +ACET325T9 PO; +AMLO5TAB2 PO; +ASPI-612 PO; +CARI350T PO; +CARI350T14 PO; +CEFP100T PO; +CHOL100013 PO; +ERGO500027 PO; +ESTR1TAB15 PO; +FERR325T72 PO; +FURO-69 PO; +GABA-585 PO; +GABA-586 PO; +HYDR-2678 PO; +HYDR30CR60 RC; +LACT1CAP19 PO; +LEVO112T2 PO; -LIDOCAINE 1% PF 2 ML VIAL. ID; -MORPHINE SULFATE 4 MG/ML DISP.SYRIN. IV; +MULT-683 PO; +OMEP40CA5 PO; -ONDANSETRON PF 4 MG/2 ML VIAL. IV; +OXYC15TA PO; +PHEN100C PO; -PROCHLORPERAZINE 10 MG/2 ML VIAL. IV; +Polyethylene Glycol 3350 PO; +SODI650T PO; +TAMS0.4C97 PO; +TEMA15CA PO; -fentaNYL PF VIAL 100 MCG/2 ML VIAL IV; +gabapentin
== END | disposition home or self-care (01) ==
LOC: PMGWOUND 10:34
PROVIDERS: ATTEND Preventive Medicine Undersea and Hyperbaric Medicine
DX: E11.621 Type 2 diabetes mellitus with foot ulcer (principal); L97.421 Non-pressure chronic ulcer of left heel and midfoot limited to breakdown of skin; E11.622 Type 2 diabetes mellitus with other skin ulcer; L89.154 Pressure ulcer of sacral region, stage 4; L89.893 Pressure ulcer of other site, stage 3; L98.491 Non-pressure chronic ulcer of skin of other sites limited to breakdown of skin; K21.9 Gastro-esophageal reflux disease without esophagitis; E03.9 Hypothyroidism, unspecified; E11.22 Type 2 diabetes mellitus with diabetic chronic kidney disease; I13.0 Hypertensive heart and chronic kidney disease with heart failure and stage 1 through stage 4 chronic kidney disease, or unspecified chronic kidney disease; N18.4 Chronic kidney disease, stage 4 (severe); I50.9 Heart failure, unspecified; G89.29 Other chronic pain; E11.42 Type 2 diabetes mellitus with diabetic polyneuropathy; E11.36 Type 2 diabetes mellitus with diabetic cataract; E78.5 Hyperlipidemia, unspecified; E78.00 Pure hypercholesterolemia, unspecified; M06.9 Rheumatoid arthritis, unspecified; Z90.710 Acquired absence of both cervix and uterus; Z90.49 Acquired absence of other specified parts of digestive tract; Z96.653 Presence of artificial knee joint, bilateral; Z87.891 Personal history of nicotine dependence; Z79.4 Long term (current) use of insulin; Z99.2 Dependence on renal dialysis
CPT/HCPCS: 97597

== ENCOUNTER → 2017-09-20 | Outpatient (CLI) | payer MEDICARE ==
[2017-07-05 15:38] VITALS: BP 115/64
== END | disposition home or self-care (01) ==
LOC: PMGWOUND 10:35
PROVIDERS: ATTEND Preventive Medicine Undersea and Hyperbaric Medicine
DX: E11.622 Type 2 diabetes mellitus with other skin ulcer (principal); L89.154 Pressure ulcer of sacral region, stage 4; L89.893 Pressure ulcer of other site, stage 3; I13.0 Hypertensive heart and chronic kidney disease with heart failure and stage 1 through stage 4 chronic kidney disease, or unspecified chronic kidney disease; E11.22 Type 2 diabetes mellitus with diabetic chronic kidney disease; N18.4 Chronic kidney disease, stage 4 (severe); I50.9 Heart failure, unspecified; E11.36 Type 2 diabetes mellitus with diabetic cataract; E11.42 Type 2 diabetes mellitus with diabetic polyneuropathy; M06.9 Rheumatoid arthritis, unspecified; K21.9 Gastro-esophageal reflux disease without esophagitis; E78.5 Hyperlipidemia, unspecified; E03.9 Hypothyroidism, unspecified; E78.00 Pure hypercholesterolemia, unspecified; L84 Corns and callosities; Z90.710 Acquired absence of both cervix and uterus; Z90.49 Acquired absence of other specified parts of digestive tract; Z96.653 Presence of artificial knee joint, bilateral; Z99.2 Dependence on renal dialysis; Z79.4 Long term (current) use of insulin; Z87.891 Personal history of nicotine dependence
CPT/HCPCS: 97597

== ENCOUNTER → 2017-09-27 | Outpatient (CLI) | payer MEDICARE ==
[2017-07-05 15:38] VITALS: BP 115/64
== END | disposition home or self-care (01) ==
LOC: PMGWOUND 10:27
PROVIDERS: ATTEND Preventive Medicine Undersea and Hyperbaric Medicine
DX: E11.621 Type 2 diabetes mellitus with foot ulcer (principal); L97.521 Non-pressure chronic ulcer of other part of left foot limited to breakdown of skin; E11.622 Type 2 diabetes mellitus with other skin ulcer; L98.491 Non-pressure chronic ulcer of skin of other sites limited to breakdown of skin; L89.154 Pressure ulcer of sacral region, stage 4; L89.623 Pressure ulcer of left heel, stage 3; I13.2 Hypertensive heart and chronic kidney disease with heart failure and with stage 5 chronic kidney disease, or end stage renal disease; E11.22 Type 2 diabetes mellitus with diabetic chronic kidney disease; N18.4 Chronic kidney disease, stage 4 (severe); I50.9 Heart failure, unspecified; E11.36 Type 2 diabetes mellitus with diabetic cataract; E11.42 Type 2 diabetes mellitus with diabetic polyneuropathy; K21.9 Gastro-esophageal reflux disease without esophagitis; L84 Corns and callosities; E03.9 Hypothyroidism, unspecified; E78.5 Hyperlipidemia, unspecified; E78.00 Pure hypercholesterolemia, unspecified; M06.9 Rheumatoid arthritis, unspecified; G89.29 Other chronic pain; Z90.49 Acquired absence of other specified parts of digestive tract; Z90.710 Acquired absence of both cervix and uterus; Z99.2 Dependence on renal dialysis; Z96.653 Presence of artificial knee joint, bilateral; Z79.4 Long term (current) use of insulin; Z87.891 Personal history of nicotine dependence
CPT/HCPCS: 97597

== ENCOUNTER → 2017-10-04 | Outpatient (CLI) | payer MEDICARE ==
[2017-07-05 15:38] VITALS: BP 115/64
[~2017-10-04] MED LIST changes: -AMLO5TAB2 PO; +AMLO5TAB7 PO
== END | disposition home or self-care (01) ==
LOC: PMGWOUND 10:32
PROVIDERS: ATTEND Preventive Medicine Undersea and Hyperbaric Medicine
DX: E11.621 Type 2 diabetes mellitus with foot ulcer (principal); L89.154 Pressure ulcer of sacral region, stage 4; L98.491 Non-pressure chronic ulcer of skin of other sites limited to breakdown of skin; L89.893 Pressure ulcer of other site, stage 3; L97.521 Non-pressure chronic ulcer of other part of left foot limited to breakdown of skin; S71.111A Laceration without foreign body, right thigh, initial encounter; I12.9 Hypertensive chronic kidney disease with stage 1 through stage 4 chronic kidney disease, or unspecified chronic kidney disease; E11.22 Type 2 diabetes mellitus with diabetic chronic kidney disease; N18.4 Chronic kidney disease, stage 4 (severe); E11.36 Type 2 diabetes mellitus with diabetic cataract; E11.42 Type 2 diabetes mellitus with diabetic polyneuropathy; K21.9 Gastro-esophageal reflux disease without esophagitis; G89.29 Other chronic pain; M54.9 Dorsalgia, unspecified; M06.9 Rheumatoid arthritis, unspecified; E78.5 Hyperlipidemia, unspecified; E78.00 Pure hypercholesterolemia, unspecified; E03.9 Hypothyroidism, unspecified; L84 Corns and callosities; Z96.653 Presence of artificial knee joint, bilateral; Z99.2 Dependence on renal dialysis; Z79.4 Long term (current) use of insulin; Z90.710 Acquired absence of both cervix and uterus; Z90.49 Acquired absence of other specified parts of digestive tract; Z87.891 Personal history of nicotine dependence; X58.XXXA Exposure to other specified factors, initial encounter; Y93.89 Activity, other specified; Y92.89 Other specified places as the place of occurrence of the external cause; Y99.8 Other external cause status
CPT/HCPCS: 97597

== ENCOUNTER → 2017-10-11 | Outpatient (CLI) | payer MEDICARE ==
[2017-07-05 15:38] VITALS: BP 115/64
== END | disposition home or self-care (01) ==
LOC: PMGWOUND 11:28
PROVIDERS: ATTEND Preventive Medicine Undersea and Hyperbaric Medicine
DX: E11.621 Type 2 diabetes mellitus with foot ulcer (principal); L89.154 Pressure ulcer of sacral region, stage 4; L98.491 Non-pressure chronic ulcer of skin of other sites limited to breakdown of skin; L89.893 Pressure ulcer of other site, stage 3; L97.521 Non-pressure chronic ulcer of other part of left foot limited to breakdown of skin; S71.111D Laceration without foreign body, right thigh, subsequent encounter; I13.0 Hypertensive heart and chronic kidney disease with heart failure and stage 1 through stage 4 chronic kidney disease, or unspecified chronic kidney disease; E11.22 Type 2 diabetes mellitus with diabetic chronic kidney disease; N18.4 Chronic kidney disease, stage 4 (severe); I50.9 Heart failure, unspecified; E11.36 Type 2 diabetes mellitus with diabetic cataract; E11.42 Type 2 diabetes mellitus with diabetic polyneuropathy; L84 Corns and callosities; K21.9 Gastro-esophageal reflux disease without esophagitis; E78.5 Hyperlipidemia, unspecified; E03.9 Hypothyroidism, unspecified; G89.29 Other chronic pain; M54.9 Dorsalgia, unspecified; E78.00 Pure hypercholesterolemia, unspecified; M06.9 Rheumatoid arthritis, unspecified; Z99.2 Dependence on renal dialysis; Z79.4 Long term (current) use of insulin; Z90.710 Acquired absence of both cervix and uterus; Z90.49 Acquired absence of other specified parts of digestive tract; Z87.891 Personal history of nicotine dependence; X58.XXXD Exposure to other specified factors, subsequent encounter
CPT/HCPCS: 97597

== ENCOUNTER → 2017-10-18 | Outpatient (CLI) | payer MEDICARE ==
[2017-07-05 15:38] VITALS: BP 115/64
== END | disposition home or self-care (01) ==
LOC: PMGWOUND 10:37
PROVIDERS: ATTEND Emergency Medicine Undersea and Hyperbaric Medicine
DX: E11.621 Type 2 diabetes mellitus with foot ulcer (principal); L97.521 Non-pressure chronic ulcer of other part of left foot limited to breakdown of skin; L89.893 Pressure ulcer of other site, stage 3; L98.491 Non-pressure chronic ulcer of skin of other sites limited to breakdown of skin; L89.154 Pressure ulcer of sacral region, stage 4; I13.2 Hypertensive heart and chronic kidney disease with heart failure and with stage 5 chronic kidney disease, or end stage renal disease; E11.22 Type 2 diabetes mellitus with diabetic chronic kidney disease; N18.5 Chronic kidney disease, stage 5; I50.9 Heart failure, unspecified; E11.36 Type 2 diabetes mellitus with diabetic cataract; E03.9 Hypothyroidism, unspecified; G89.29 Other chronic pain; M54.9 Dorsalgia, unspecified; L84 Corns and callosities; E78.5 Hyperlipidemia, unspecified; E78.00 Pure hypercholesterolemia, unspecified; K21.9 Gastro-esophageal reflux disease without esophagitis; M06.9 Rheumatoid arthritis, unspecified; Z90.710 Acquired absence of both cervix and uterus; Z90.49 Acquired absence of other specified parts of digestive tract; Z99.2 Dependence on renal dialysis; Z79.4 Long term (current) use of insulin
CPT/HCPCS: 99214; G0463

== ENCOUNTER → 2017-10-18 | Outpatient (CLI) | payer MEDICARE ==
[2017-07-05 15:38] VITALS: BP 115/64
--- NOTE | 2017-10-18 13:41 | RAD ---
10/18/2017 1. Left Ankle-brachial indices 2. Left lower extremity arterial duplex ultrasound INDICATION: Nonhealing wound, left ankle COMPARISON STUDY: Left lower extremity arterial duplex ultrasound March 09, 2017. Discussion: Blood pressure measurements were obtained of the arms and ankles. Right brachial pressure: 124 mmHg Left brachial pressure: 122 mmHg Left ankle pressure: 100 mmHg Left TORI 0.81 Ultrasound evaluation of the major arteries of the left lower extremity was performed including color Doppler imaging spectral analysis. Biphasic waveforms are seen in the left common femoral artery and left profunda artery. There is shift monophasic waveforms in the superficial femoral artery with a focal elevation in velocity of 213 cm/s. Appears to be soft plaque in its percent visual narrowing is seen in the mid left SFA on color Doppler imaging with persistent elevation velocity of 200 cm/s. Second area of increased velocity in the distal left SFA is seen up to 305 cm/s. Associated at least moderate visual stenosis in aliasing is seen on color Doppler imaging. Given this finding relative elevation of velocities in the left popliteal artery are seen measuring 190 cm/s. Monophasic waveforms are seen in the posterior tibial and anterior tibial arteries distally. Findings appear to have worsened in the interim since comparison study. IMPRESSION: At least moderate multifocal stenoses are suggested within the left superficial femoral artery. Distal narrowings may be more significant than ultrasound demonstrates given the presence of inflow disease which could erroneously minimize distal velocity measurements. Possible popliteal artery narrowing is seen as well. Given findings and history of nonhealing wound conventional or CT angiography is recommended for further evaluation. Findings appear to have worsened in the interim since comparison study. Electronically signed by: Jarrett Cespedes MD (10/18/2017 1:38 PM) [id number]
== END | disposition home or self-care (01) ==
LOC: US 10:50
PROVIDERS: ATTEND Preventive Medicine Undersea and Hyperbaric Medicine
DX: S91.002D Unspecified open wound, left ankle, subsequent encounter (principal); I13.2 Hypertensive heart and chronic kidney disease with heart failure and with stage 5 chronic kidney disease, or end stage renal disease; E11.22 Type 2 diabetes mellitus with diabetic chronic kidney disease; I50.9 Heart failure, unspecified; N18.5 Chronic kidney disease, stage 5; E78.00 Pure hypercholesterolemia, unspecified; Z86.2 Personal history of diseases of the blood and blood-forming organs and certain disorders involving the immune mechanism; E03.9 Hypothyroidism, unspecified; I70.202 Unspecified atherosclerosis of native arteries of extremities, left leg; Z96.653 Presence of artificial knee joint, bilateral; Z87.440 Personal history of urinary (tract) infections; Z87.891 Personal history of nicotine dependence; Z86.010 Personal history of colon polyps; Z90.49 Acquired absence of other specified parts of digestive tract; Z90.710 Acquired absence of both cervix and uterus; Z82.49 Family history of ischemic heart disease and other diseases of the circulatory system; X58.XXXD Exposure to other specified factors, subsequent encounter
CPT/HCPCS: 93922; 93926

== ENCOUNTER → 2017-10-25 | Outpatient (CLI) | payer MEDICARE ==
[2017-07-05 15:38] VITALS: BP 115/64
== END | disposition home or self-care (01) ==
LOC: PMGWOUND 11:38
PROVIDERS: ATTEND Preventive Medicine Undersea and Hyperbaric Medicine
DX: E11.622 Type 2 diabetes mellitus with other skin ulcer (principal); L97.521 Non-pressure chronic ulcer of other part of left foot limited to breakdown of skin; L98.491 Non-pressure chronic ulcer of skin of other sites limited to breakdown of skin; L89.154 Pressure ulcer of sacral region, stage 4; L89.893 Pressure ulcer of other site, stage 3; I13.2 Hypertensive heart and chronic kidney disease with heart failure and with stage 5 chronic kidney disease, or end stage renal disease; E11.22 Type 2 diabetes mellitus with diabetic chronic kidney disease; N18.5 Chronic kidney disease, stage 5; I50.9 Heart failure, unspecified; E11.36 Type 2 diabetes mellitus with diabetic cataract; E11.42 Type 2 diabetes mellitus with diabetic polyneuropathy; L84 Corns and callosities; G89.29 Other chronic pain; M54.9 Dorsalgia, unspecified; M06.9 Rheumatoid arthritis, unspecified; E03.9 Hypothyroidism, unspecified; E78.5 Hyperlipidemia, unspecified; K21.9 Gastro-esophageal reflux disease without esophagitis; E78.00 Pure hypercholesterolemia, unspecified; Z79.4 Long term (current) use of insulin; Z87.891 Personal history of nicotine dependence; Z90.710 Acquired absence of both cervix and uterus; Z90.49 Acquired absence of other specified parts of digestive tract
CPT/HCPCS: 97597

== ENCOUNTER → 2017-11-01 | Outpatient (CLI) | payer MEDICARE ==
[2017-07-05 15:38] VITALS: BP 115/64
[2017-11-01 13:02] LABS: CREATININE 1.8 mg/dL (0.6-1.0); GFR 27.1; POTASSIUM 4.2 mmol/L (3.5-5.1)
== END | disposition home or self-care (01) ==
LOC: PMGWOUND 11:44
PROVIDERS: ATTEND Preventive Medicine Undersea and Hyperbaric Medicine
DX: E11.621 Type 2 diabetes mellitus with foot ulcer (principal); L97.521 Non-pressure chronic ulcer of other part of left foot limited to breakdown of skin; L89.893 Pressure ulcer of other site, stage 3; I13.2 Hypertensive heart and chronic kidney disease with heart failure and with stage 5 chronic kidney disease, or end stage renal disease; E11.22 Type 2 diabetes mellitus with diabetic chronic kidney disease; N18.5 Chronic kidney disease, stage 5; I50.9 Heart failure, unspecified; E11.36 Type 2 diabetes mellitus with diabetic cataract; E11.42 Type 2 diabetes mellitus with diabetic polyneuropathy; L84 Corns and callosities; G89.29 Other chronic pain; M54.9 Dorsalgia, unspecified; M06.9 Rheumatoid arthritis, unspecified; E03.9 Hypothyroidism, unspecified; E78.5 Hyperlipidemia, unspecified; M19.90 Unspecified osteoarthritis, unspecified site; K21.9 Gastro-esophageal reflux disease without esophagitis; E78.00 Pure hypercholesterolemia, unspecified; Z79.4 Long term (current) use of insulin; Z90.710 Acquired absence of both cervix and uterus; Z90.49 Acquired absence of other specified parts of digestive tract; Z87.891 Personal history of nicotine dependence
CPT/HCPCS: 11042; 36415; 80048

== ENCOUNTER → 2017-11-15 | Outpatient (CLI) | payer MEDICARE ==
[2017-11-08 10:47] VITALS: BP 111/44
== END | disposition home or self-care (01) ==
LOC: PMGWOUND 11:43
PROVIDERS: ATTEND Preventive Medicine Undersea and Hyperbaric Medicine
DX: E11.622 Type 2 diabetes mellitus with other skin ulcer (principal); L98.491 Non-pressure chronic ulcer of skin of other sites limited to breakdown of skin; L89.154 Pressure ulcer of sacral region, stage 4; E11.621 Type 2 diabetes mellitus with foot ulcer; L97.521 Non-pressure chronic ulcer of other part of left foot limited to breakdown of skin; L89.893 Pressure ulcer of other site, stage 3; E11.36 Type 2 diabetes mellitus with diabetic cataract; E11.21 Type 2 diabetes mellitus with diabetic nephropathy; E11.42 Type 2 diabetes mellitus with diabetic polyneuropathy; E11.00 Type 2 diabetes mellitus with hyperosmolarity without nonketotic hyperglycemic-hyperosmolar coma (NKHHC); I13.2 Hypertensive heart and chronic kidney disease with heart failure and with stage 5 chronic kidney disease, or end stage renal disease; E11.22 Type 2 diabetes mellitus with diabetic chronic kidney disease; N18.5 Chronic kidney disease, stage 5; I50.9 Heart failure, unspecified; L84 Corns and callosities; G89.29 Other chronic pain; M54.5 Low back pain; M06.9 Rheumatoid arthritis, unspecified; M19.90 Unspecified osteoarthritis, unspecified site; E78.00 Pure hypercholesterolemia, unspecified; K21.9 Gastro-esophageal reflux disease without esophagitis; E78.5 Hyperlipidemia, unspecified; E03.9 Hypothyroidism, unspecified; Z99.2 Dependence on renal dialysis; Z79.4 Long term (current) use of insulin; Z96.653 Presence of artificial knee joint, bilateral; Z87.891 Personal history of nicotine dependence; Z90.710 Acquired absence of both cervix and uterus; Z90.49 Acquired absence of other specified parts of digestive tract
CPT/HCPCS: 97597

== ENCOUNTER 2017-11-20 13:27 | Inpatient (IN) | payer MEDICARE ==
[~2017-11-20] VITALS: Ht 152.4 cm; Wt 44.5 kg
[2017-11-20] MEDS ORDERED: FURO20TA3 PO (15:24)
[2017-11-20] MEDS ORDERED: ACETAMINOPHEN 325 MG TABLET. PO PRN (16:00)
[2017-11-20] MEDS ORDERED: VANCOMYCIN PER PHARMACY MC PRN (16:00)
[2017-11-20] MEDS ORDERED: PIP/TAZO PER PHARMACY MC PRN (16:00)
[2017-11-20 16:25] VITALS: BP 106/36
[2017-11-20 16:38] LABS: BASO % 1 % (0-3); EOS # 0.1 x10^3/uL (0.0-0.7); EOS % 2 % (0-3); HEMATOCRIT 26.1 % (36.0-47.0); HEMOGLOBIN 8.9 g/dL (12.0-15.5); LYMPH # 1.4 x10^3/uL (1.0-4.8); LYMPH % 16 % (24-48); MEAN CORPUSCULAR HEMOGLOBIN 31 pg (25-35); MEAN CORPUSCULAR HGB CONC 34 g/dL (31-37); MEAN CORPUSCULAR VOLUME 90 fL (79-100); MONO # 0.5 x10^3/uL (0.0-1.1); MONO % 6 % (0-9); NEUT # 6.3 x10^3uL (1.8-7.7); NEUT % 75 % (31-73); PLATELET COUNT 242 x10^3/uL (140-400); RED BLOOD COUNT 2.91 x10^6/uL (3.50-5.40); RED CELL DISTRIBUTION WIDTH 15.1 % (11.5-14.5); WHITE BLOOD COUNT 8.3 x10^3/uL (4.0-11.0)
[2017-11-20] MEDS ORDERED: PIPERACILLIN/TAZOBACTAM 3.375 GM in IV NORMAL SALINE 50ML 50 ML IV ONE (17:00)
[2017-11-20] MEDS ORDERED: VANCOMYCIN 1 GM in IV NORMAL SALINE 250ML 250 ML IV ONE (17:00)
--- NOTE | 2017-11-20 17:42 | EKG ---
[facility] [address] [place] [address] Test Date: 2017-11-20 Test Time: 16:13:57 Pat Name: SEVERO BYRD Department: Room: [facility] Gender: F Fitter Mechanic: RODNEY : 1935 Requested By: CHARLOTTE VUONG Order Number: [id number] Reading MD: Misha Castellon Measurements Intervals Mona Rate: 60 P: 34 CA: 234 QRS: 19 QRSD: 78 T: 30 QT: 412 QTc: 416 Interpretive Statements SINUS RHYTHM PROLONGED CA INTERVAL LOW LIMB LEAD VOLTAGE ABNORMAL ECG Electronically Signed On 11-21-2017 11:44:45 CDT by Misha Castellon
[2017-11-20 17:53] LABS: ALBUMIN 2.9 g/dL (3.4-5.0); ALBUMIN/GLOBULIN RATIO 0.7 (1.0-1.7); CALCIUM 8.7 mg/dL (8.5-10.1); CREATININE 1.6 mg/dL (0.6-1.0); MAGNESIUM 2.5 mg/dL (1.8-2.4); POTASSIUM 4.7 mmol/L (3.5-5.1); TOTAL BILIRUBIN 0.2 mg/dL (0.2-1.0)
[2017-11-20 19:00] VITALS: BP 141/67
[2017-11-20] MEDS: CARISOPRODOL 350 MG TABLET PO SCH (21:23)
[2017-11-20] MEDS: LACTOBACILLUS RHAMNOSUS GG 1 CAPSULE. PO SCH (21:23)
[2017-11-20] MEDS: GABAPENTIN 100 MG CAPSULE. PO SCH (21:23)
[2017-11-20] MEDS: TAMSULOSIN 0.4 MG CAP.ER.24H. PO SCH (21:23)
[2017-11-20] MEDS: HEPARIN for SUB-Q USE 5,000 UNIT/ML VIAL. SQ SCH (21:30)
[2017-11-20] MEDS: oxyCODONE IR 5 MG TABLET PO PRN (21:38)
[2017-11-20 23:00] VITALS: BP_SYST 113; BP_SYST 99; BP_DIAS 39; BP_DIAS 46
[2017-11-20] MEDS: PIPERACILLIN/TAZOBACTAM 2.25 GM in IV NORMAL SALINE 50ML 50 ML IV SCH (23:34)
[2017-11-21 01:29] LABS: BILIRUBIN,URINE NEGATIVE (NEG); CLARITY,URINE CLEAR; COLOR,URINE YELLOW; NITRITE,URINE POSITIVE (NEG); PH,URINE 7.5; PROTEIN,URINE 30 mg/dL (NEG-TRACE); UROBILINOGEN,URINE 0.2 mg/dL (0.2 mg/dL)
[2017-11-21 01:51] LABS: BACTERIA,URINE MANY /HPF (0-FEW); RBC,URINE OCC /HPF (0-2); SQUAMOUS EPITHELIAL CELL,UR OCC /LPF; WBC,URINE >40 /HPF (0-4)
[2017-11-21 03:00] VITALS: BP 128/61
[2017-11-21] MEDS: oxyCODONE IR 5 MG TABLET PO PRN (04:14)
[2017-11-21 04:47] LABS: BASO # 0.1 x10^3/uL (0.0-0.2); BASO % 1 % (0-3); EOS # 0.2 x10^3/uL (0.0-0.7); EOS % 2 % (0-3); HEMATOCRIT 26.5 % (36.0-47.0); HEMOGLOBIN 8.7 g/dL (12.0-15.5); LYMPH % 23 % (24-48); MEAN CORPUSCULAR HEMOGLOBIN 30 pg (25-35); MEAN CORPUSCULAR HGB CONC 33 g/dL (31-37); MEAN CORPUSCULAR VOLUME 90 fL (79-100); MONO # 0.6 x10^3/uL (0.0-1.1); MONO % 7 % (0-9); NEUT # 5.8 x10^3uL (1.8-7.7); NEUT % 67 % (31-73); PLATELET COUNT 212 x10^3/uL (140-400); RED BLOOD COUNT 2.93 x10^6/uL (3.50-5.40); RED CELL DISTRIBUTION WIDTH 15.1 % (11.5-14.5); WHITE BLOOD COUNT 8.6 x10^3/uL (4.0-11.0)
[2017-11-21 05:15] LABS: ALBUMIN 2.8 g/dL (3.4-5.0); ALBUMIN/GLOBULIN RATIO 0.7 (1.0-1.7); CALCIUM 8.3 mg/dL (8.5-10.1); CREATININE 1.8 mg/dL (0.6-1.0); GFR 27.1; POTASSIUM 5.1 mmol/L (3.5-5.1); TOTAL BILIRUBIN 0.3 mg/dL (0.2-1.0)
[2017-11-21] MEDS: PIPERACILLIN/TAZOBACTAM 2.25 GM in IV NORMAL SALINE 50ML 50 ML IV SCH ×3 (05:50→17:32)
[2017-11-21] MEDS: LEVOTHYROXINE 112 MCG TABLET PO SCH (05:50)
[2017-11-21 07:00] VITALS: BP 96/43
--- NOTE | 2017-11-21 08:57 | RAD ---
CHEST AP ONLY Clinical indications: INPATIENT. LEFT LEG CELLULITIS. Hx HTN, CHF. COMPARISON: March 09, 2017. Findings: No acute lung infiltrate or pleural effusion or pulmonary edema or lung mass or pneumothorax is seen. The heart size, pulmonary vasculature, mediastinum and both mariana are unremarkable. Old deformity of the right humeral head and degenerative osteoarthritis of the right glenohumeral joint is seen. There is narrowing of the acromiohumeral space of both shoulders which may be seen with chronic rotator cuff tears. Degenerative osteoarthritis of the left glenohumeral joint is seen as well. Impression: No acute radiographic abnormality of the chest is seen. There is moderate gaseous distention of the stomach. Electronically signed by: Jeremías Roth MD (11/21/2017 8:53 AM) [facility] [place]
[2017-11-21] MEDS: LACTOBACILLUS RHAMNOSUS GG 1 CAPSULE. PO SCH ×2 (09:29→21:32)
[2017-11-21] MEDS: FUROSEMIDE 20 MG TABLET PO SCH (09:30)
[2017-11-21] MEDS: MULTIVITAMIN with MINERAL TABLET. PO SCH (09:30)
[2017-11-21] MEDS: PANTOPRAZOLE 40 MG TABLET.DR. PO SCH (09:30)
[2017-11-21] MEDS: HEPARIN for SUB-Q USE 5,000 UNIT/ML VIAL. SQ SCH ×2 (09:31→21:36)
--- NOTE | 2017-11-21 10:33 | PDOC ---
Provider Note Provider Note Patient seen. History and Physical dictated. See dictation. CHARLOTTE VUONG MD Nov 21, 2017 10:33
[2017-11-21 11:00] VITALS: BP 103/33
--- NOTE | 2017-11-21 11:27 | HP ---
ADMIT DATE: 11/20/2017 ADMITTING PHYSICIAN: Dr. Charlotte Rojas. HISTORY OF PRESENT ILLNESS: This 82-year-old female who is known to have severe peripheral artery disease and nonhealing left heel wound and also has a right hip wound, presented to my office yesterday with complaints of foul smelling left lower extremity and left foot along with increased swelling and redness of the left leg and foot. In the office, the patient was noted to have cellulitis of the left leg and foot with increased warmth and swelling. Wound was foul smelling, although did not see any discharge. The patient had dressing changed by the home health nurse yesterday morning. Because of the cellulitis and likely wound infection in a patient with severe peripheral artery disease, who had recently undergone a left lower extremity angiography with left tibioperoneal trunk and proximal peroneal angioplasty by Dr. Cespedes. I admitted the patient for further evaluation and management. SYSTEM REVIEW: At present time, the patient does admit to some lower extremity pain, but she also has some generalized joint pains and body ache. She denies any nausea, vomiting, diarrhea, constipation, dizziness, chest pains, palpitations, fever or chills. All other systems reviewed and are negative. PAST MEDICAL HISTORY: The patient was last admitted here on 11/02/2017. At that time, she was noted to have a hematoma of the left groin. She has peripheral artery disease and status post left lower extremity angiography with left tibioperoneal trunk and proximal peroneal angioplasty by Dr. Cespedes. She was also treated at that time for acute renal failure with chronic kidney disease stage 4 baseline. She has history of hypertension, hyperlipidemia simple chronic bronchitis, myoclonic tremors, gastroesophageal reflux disease, hemorrhoids, iron deficiency anemia, osteoarthritis, rheumatoid arthritis, degenerative joint disease with chronic pain management with implanted pain pump, chronic renal insufficiency, CKD IV and baseline creatinine is around 1.7 and hypothyroidism. PAST SURGICAL HISTORY: The patient had a carpal tunnel surgery, bilateral foot surgeries. Has right hip wound, chronic nonhealing left heel wound, [facility] Cholecystectomy, hysterectomy, tonsillectomy, appendectomy, chronic nonhealing left heel wound, fracture left hip with surgical repair with plate and screws on 01/29/2017. Colonic polyps removed with biopsy on 12/25/2012 as well as on 01/19/2010 and also had a tubular adenoma. The patient had a knee replacement in 2008, bladder tack in 2008. Skin flap of the sacral decubitus ulcer and also has had hemorrhoidectomy and cataract extractions. FAMILY HISTORY: Mother had coronary artery disease and myocardial infarction. SOCIAL HISTORY: No history of smoking, alcoholism or drug abuse at this time. ALLERGIES: None known any. MEDICATIONS: Reviewed and reconciled. PHYSICAL EXAMINATION: GENERAL: The patient is an elderly female who is alert, oriented x 3, malnourished, wheelchair bound and not in acute distress. VITAL SIGNS: Temperature 98.4, pulse 63 per minute, respirations 18 per minute, blood pressure 96/43 mmHg. HEENT: The patient is alert, oriented, chronically ill-appearing, not in acute distress. LUNGS: Decreased breath sounds at bases. CARDIOVASCULAR: S1, S2 regular. ABDOMEN: Soft, nontender, no guarding, no rigidity. Bowel sounds present. EYES: Pupils reacting to light. Conjunctivae pale. Sclerae muddy. HENT: Unremarkable. NECK: Supple. JVP normal. No thyromegaly. Trachea midline. SKIN: The patient has a left heel wound that is clean and also has a right hip wound. Peripheral pulse decreased. EXTREMITIES: The patient has swelling 2-3+ of the left lower extremity with redness, increased warmth and edema. No calf tenderness. The patient also has significant swelling of the left foot. CENTRAL NERVOUS SYSTEM: Generalized weakness. LABORATORY FINDINGS: Sodium 144 yesterday, 146 today. BUN 45 yesterday, 42 today. Creatinine 1.6 yesterday, 1.8 today. Glucose 136 and 88, albumin is 2.9 and 2.8. Potassium 4.7 and potassium is 5.1 today: WBC count 8.3; hemoglobin 8.9 and platelet count is 242,000. Urine nitrite is positive, wbc's more than 40, many bacteria. IMPRESSION: 1. Cellulitis of left leg and foot. 2. Left heel wound. 3. Right hip wound. 4. Peripheral artery disease, recent left lower extremity angiography with left tibioperoneal trunk and proximal peroneal angioplasty by Dr. Cespedes. 5. Osteoarthritis. 6. Chronic kidney disease stage 4. 7. Bgrbm-zk-mbgbkaz blood loss anemia. 8. History of hypertension. 9. History of myoclonic tremors secondary to acute renal failure previously. 10. Severe protein calorie malnutrition. 11. Neuropathy of lower extremities. 12. History of urinary retention. 13. Valvular insufficiency, hmaz-xp-rmusuhsc mitral regurgitation and huqs-rz-[id number] tricuspid regurgitation. 14. Hyperlipidemia. 15. Gastroesophageal reflux disease. 16. Chronic low back pain with history of implantable medication pump for pain management. 17. Nonambulatory due to lower leg weakness and deformities. 18 Hypernatremia. 19. Physical deconditioning. PLAN: Consult Dr. Wong for wound care evaluation and management. Consult Dr. Gomez for infectious disease evaluation and management. Condition and treatment discussed with him. Consult Dr. Knapp for nephrology evaluation and management. Continue IV Zosyn and IV vancomycin. For details, please refer the orders. CHARLOTTE ROJAS MD DR: MICKEY/daphney JOB#: [id number] / [id number]
--- NOTE | 2017-11-21 11:53 | PDOC ---
Infectious Disease Note Vital Sign Vital Signs Vital Signs Date Time Temp Pulse Resp B/P (MAP) Pulse Ox O2 Delivery O2 Flow Rate FiO2 11/21/17 08:00 Room Air 11/21/17 07:00 98.4 63 18 96/43 (60) 96 98.4 Labs Lab Laboratory Tests Test 11/20/17 16:15 11/20/17 23:55 11/21/17 03:50 White Blood Count 8.3 x10^3/uL (4.0-11.0) 8.6 x10^3/uL (4.0-11.0) Red Blood Count 2.91 x10^6/uL (3.50-5.40) 2.93 x10^6/uL (3.50-5.40) Hemoglobin 8.9 g/dL (12.0-15.5) 8.7 g/dL (12.0-15.5) Hematocrit 26.1 % (36.0-47.0) 26.5 % (36.0-47.0) Mean Corpuscular Volume 90 fL (79-100) 90 fL (79-100) Mean Corpuscular Hemoglobin 31 pg (25-35) 30 pg (25-35) Mean Corpuscular Hemoglobin Concent 34 g/dL (31-37) 33 g/dL (31-37) Red Cell Distribution Width 15.1 % (11.5-14.5) 15.1 % (11.5-14.5) Platelet Count 242 x10^3/uL (140-400) 212 x10^3/uL (140-400) Neutrophils (%) (Auto) 75 % (31-73) 67 % (31-73) Lymphocytes (%) (Auto) 16 % (24-48) 23 % (24-48) Monocytes (%) (Auto) 6 % (0-9) 7 % (0-9) Eosinophils (%) (Auto) 2 % (0-3) 2 % (0-3) Basophils (%) (Auto) 1 % (0-3) 1 % (0-3) Neutrophils # (Auto) 6.3 x10^3uL (1.8-7.7) 5.8 x10^3uL (1.8-7.7) Lymphocytes # (Auto) 1.4 x10^3/uL (1.0-4.8) 2.0 x10^3/uL (1.0-4.8) Monocytes # (Auto) 0.5 x10^3/uL (0.0-1.1) 0.6 x10^3/uL (0.0-1.1) Eosinophils # (Auto) 0.1 x10^3/uL (0.0-0.7) 0.2 x10^3/uL (0.0-0.7) Basophils # (Auto) 0.0 x10^3/uL (0.0-0.2) 0.1 x10^3/uL (0.0-0.2) Erythrocyte Sedimentation Rate 50 (0-25) Sodium Level 144 mmol/L (136-145) 146 mmol/L (136-145) Potassium Level 4.7 mmol/L (3.5-5.1) 5.1 mmol/L (3.5-5.1) Chloride Level 105 mmol/L (98-107) 106 mmol/L (98-107) Carbon Dioxide Level 32 mmol/L (21-32) 32 mmol/L (21-32) Anion Gap 7 (6-14) 8 (6-14) Blood Urea Nitrogen 45 mg/dL (7-20) 42 mg/dL (7-20) Creatinine 1.6 mg/dL (0.6-1.0) 1.8 mg/dL (0.6-1.0) Estimated GFR (Cockcroft-Gault) 31.0 27.1 BUN/Creatinine Ratio 28 (6-20) 23 (6-20) Glucose Level 136 mg/dL (70-99) 88 mg/dL (70-99) Calcium Level 8.7 mg/dL (8.5-10.1) 8.3 mg/dL (8.5-10.1) Magnesium Level 2.5 mg/dL (1.8-2.4) Total Bilirubin 0.2 mg/dL (0.2-1.0) 0.3 mg/dL (0.2-1.0) Aspartate Amino Transf (AST/SGOT) 20 U/L (15-37) 18 U/L (15-37) Alanine Aminotransferase (ALT/SGPT) 16 U/L (14-59) 18 U/L (14-59) Alkaline Phosphatase 78 U/L (46-116) 80 U/L (46-116) Total Protein 7.0 g/dL (6.4-8.2) 7.0 g/dL (6.4-8.2) Albumin 2.9 g/dL (3.4-5.0) 2.8 g/dL (3.4-5.0) Albumin/Globulin Ratio 0.7 (1.0-1.7) 0.7 (1.0-1.7) Urine Collection Type Unknown Urine Color Yellow Urine Clarity Clear Urine pH 7.5 Urine Specific Commodore 1.015 Urine Protein 30 mg/dL (NEG-TRACE) Urine Glucose (UA) Negative mg/dL (NEG) Urine Ketones (Stick) Negative mg/dL (NEG) Urine Blood Negative (NEG) Urine Nitrite Positive (NEG) Urine Bilirubin Negative (NEG) Urine Urobilinogen Dipstick 0.2 mg/dL (0.2 mg/dL) Urine Leukocyte Esterase Small (NEG) Urine RBC Occ /HPF (0-2) Urine WBC >40 /HPF (0-4) Urine Squamous Epithelial Cells Occ /LPF Urine Bacteria Many /HPF (0-FEW) Objective Assessment LE cellulitis Tinea feet MANE ? UTI- POA but has squamous cells - H/o Ecoli Left plantar wound PAD - status post left lower extremity angiography with left tibioperoneal trunk and proximal peroneal angioplasty by Dr. Cespedes 11/02. Then hematoma Plan Plan of Care Cont Zosyn add micafungin for yeast on feet D/c Vanc add zyvox Cont local wound care F/u labs and cults Thank you # [id number] MARCELA TOLLIVER MD Nov 21, 2017 11:53
[2017-11-21] MEDS: LINEZOLID 600 MG TABLET PO SCH ×2 (13:03→21:32)
[2017-11-21] MEDS: MICAFUNGIN 100 MG in IV DEXTROSE 5% 100ML 100 ML IV SCH (13:03)
[2017-11-21 15:00] VITALS: BP 108/41
--- NOTE | 2017-11-21 15:38 | PDOC2 ---
CELSO CORDOBA TELECOMMUNICATIONS PROFESSIONAL 11/21/17 1538: CONSULT Date of Consult Date of Consult DATE: 11/21/17 TIME: 11:20 Reason for Consult Reason for Consult: Sacral pressure ulcer and left plantar foot pressure ulcer Referring Physician Referring Physician: Dr Rojas Identification/Chief Complaint Problems: (1) Pressure injury of left foot, stage 3 (2) Stage IV pressure ulcer of sacral region Source Source: Chart review, Patient History of Present Illness Reason for Visit: Pt senior living pt at [facility]. Pt with hx of sacral, coccyx and left foot pressure ulcers. Coccyx healed out. Skin flap applied to sacral following debridement to bone and NWT. Sacral wound reopened. Pt seen in our clinic on in which bedside surgical debridement of sacral wound was performed. Nonviable slough removed and wound bed 100% red-purple granulation. Left foot ulcer debrided as well with primarily callus removal. Pt w/c bound uses heelmedix boot at home to help with offloading of left plantar foot. Pt denies painful symptoms of her sacral wound. C/o pain 4/10 in her plantar foot with palpation and dressing changes. Past Medical History Cardiovascular: HTN, Hyperlipidemia Pulmonary: Bronchitis CENTRAL NERVOUS SYSTEM: Other GI: GERD, Hemorrhoids Heme/Onc: Anemia NOS Musculoskeletal: Osteoarthritis, Other Rheumatologic: Rheumatoid arthritis, Other Renal/: Chronic renal insuff Endocrine: Hypothyroidism Past Surgical History Past Surgical History: Appendectomy, Cholecystectomy, Cataract Removal, Total knee replacement, Tonsillectomy, Hysterectomy Family History Family History: Coronary Artery Disease Social History ALCOHOL: none Drugs: None Lives: with Family Current Medications Current Medications Current Medications Vancomycin HCl (Vanco Per Pharmacy) 1 each PRN DAILY PRN MC SEE COMMENTS Last administered on 11/20/17at 18:37; Start 11/20/17 at 16:00; Stop 11/21/17 at 11 :32; Status DC Piperacillin Sod/ Tazobactam Sod (Zosyn Per Pharmacy) 1 each PRN DAILY PRN MC SEE COMMENTS; Start 11/20/17 at 16:00 Acetaminophen (Tylenol) 650 mg PRN Q6HRS PRN PO MILD PAIN / TEMP; Start at 16:00 Carisoprodol (Soma) 350 mg QHS PO Last administered on 11/20/17at 21:23; Start 11/20/17 at 21:00 Furosemide (Lasix) 20 mg DAILY PO Last administered on 11/21/17 09:30; Start 11/21/17 at 09:00 Gabapentin (Neurontin) 100 mg HS PO Last administered on 11/20/17 21:23; Start 11/20/17 at 21:00 Levothyroxine Sodium (Synthroid) 112 mcg DAILY06 PO Last administered on 05:50; Start 11/21/17 at 06:00 Tamsulosin HCl (Flomax) 0.4 mg QHS PO Last administered on 11/20/17 21:23; Start 11/20/17 at 21:00 Multivitamins (Thera M Plus) 1 tab DAILY PO Last administered on 11/21/17 09: 30; Start 11/21/17 at 09:00 Pantoprazole Sodium (Protonix) 40 mg DAILYAC PO Last administered on 09:30; Start 11/21/17 at 07:30 Oxycodone HCl (Roxicodone) 15 mg PRN Q4HRS PRN PO PAIN Last administered on 04:14; Start 11/20/17 at 16:00 Piperacillin Sod/ Tazobactam Sod 3.375 gm/Sodium Chloride 50 ml @ 100 mls/hr ONCE ONCE IV Last administered on 11/20/17 17:39; Start 11/20/17 at 17:00; Stop 11/20/17 at 17:29; Status DC Vancomycin HCl 1 gm/Sodium Chloride 250 ml @ 250 mls/hr ONCE ONCE IV Last administered on 11/20/17at 17:40; Start 11/20/17 at 17:00; Stop 11/20/17 at 17 :59; Status DC Heparin Sodium (Porcine) (Heparin Sodium) 5,000 unit Q12HR SQ Last administered on 11/21/17 09:31; Start 11/20/17 at 21:00 Piperacillin Sod/ Tazobactam Sod 2.25 gm/Sodium Chloride 50 ml @ 100 mls/hr Q6HRS IV Last administered on 11/21/17 13:02; Start 11/21/17 at 00:00 Lactobacillus Rhamnosus (Culturelle) 1 cap BID PO Last administered on at 09:29; Start 11/20/17 at 21:00 Vancomycin HCl 750 mg/Sodium Chloride 250 ml @ 250 mls/hr Q48H IV ; Start at 18:00; Stop 11/22/17 at 18:00; Status DC Vancomycin HCl (Vancomycin Trough Level) 1 each 1X ONCE MC ; Start 11/24/17 at 17:30; Stop 11/24/17 at 17:30; Status DC Micafungin Sodium 100 mg/Dextrose 100 ml @ 100 mls/hr Q24H IV Last administered on 11/21/17at 13:03; Start 11/21/17 at 12:00 Linezolid (Zyvox) 600 mg BID PO Last administered on 11/21/17at 13:03; Start 11/21/17 at 12:30 Active Scripts Active Tylenol (Acetaminophen) 325 Mg Tablet 650 Mg PO PRN Q6HRS PRN Neurontin (Gabapentin) 100 Mg Capsule 100 Mg PO HS Reported Furosemide 20 Mg Tablet 20 Mg PO DAILY Oxycodone Hcl 15 Mg Tablet 15 Mg PO PRN Adults 50+ Multivitamin Tablet (Multivit-Min/FA/Lycopen/Lutein) 1 Each Tablet 1 Each PO DAILY Soma (Carisoprodol) 350 Mg Tablet 1 Tab PO QHS Flomax (Tamsulosin Hcl) 0.4 Mg Cap.er.24h 0.4 Mg PO QHS Omeprazole 40 Mg Capsule.dr 40 Mg PO BIDAC Synthroid (Levothyroxine Sodium) 112 Mcg Tablet 112 Mcg PO DAILY06 Allergies Allergies: Coded Allergies: No Known Drug Allergies (Unverified , 07/05/17) ROS Review of System CONSTITUTIONAL: No fever or chills EYES: No recent changes SKIN: No rash or itching. Wounds as described. CARDIOVASCULAR: No chest pain, syncope, palpitations, or edema RESPIRATORY: No SOB or cough GASTROINTESTINAL: No nausea, vomiting or abdominal pain NEUROLOGICAL: No headaches or weakness ENDOCRINE: No cold or heat intolerance GENITOURINARY: No urgency or frequency of urination MUSCULOSKELETAL: No back pain or joint pain. W/c bound. LYMPHATICS: No enlarged lymph nodes PSYCHIATRIC: No anxiety or depression Physical Exam General: Alert, Oriented X3, No acute distress HEENT: Atraumatic Lungs: Clear to auscultation, Normal air movement Abdomen: Normal bowel sounds, Soft, No tenderness, No masses Extremities: No clubbing, No cyanosis, No edema, Other (Sacral wound 100% granulation, discolored red-purple. Measures 2x2.5x1.5cm. Edges attached and not rolling. Surrounding tissue with good color, no edema or erythema. Flap scar noted. Left plantar wound 100% granulation. Measures 1.4x1.1x0.4cm. Wound bed pink and moist. Moderate amount of serous drainage. No odor following cleansing. Surrounding tissue free of erythema and edema. ) Skin: No rashes Neuro: Other (Pt w/c bound) Psych/Mental Status: Mental status NL, Mood NL Vitals VITALS Vital Signs Date Time Temp Pulse Resp B/P (MAP) Pulse Ox O2 Delivery O2 Flow Rate FiO2 11/21/17 11:00 97.5 63 18 103/33 (56) 97 Room Air 97.5 Labs Labs Laboratory Tests Test 11/20/17 16:15 11/20/17 23:55 11/21/17 03:50 White Blood Count 8.3 x10^3/uL (4.0-11.0) 8.6 x10^3/uL (4.0-11.0) Red Blood Count 2.91 x10^6/uL (3.50-5.40) 2.93 x10^6/uL (3.50-5.40) Hemoglobin 8.9 g/dL (12.0-15.5) 8.7 g/dL (12.0-15.5) Hematocrit 26.1 % (36.0-47.0) 26.5 % (36.0-47.0) Mean Corpuscular Volume 90 fL (79-100) 90 fL (79-100) Mean Corpuscular Hemoglobin 31 pg (25-35) 30 pg (25-35) Mean Corpuscular Hemoglobin Concent 34 g/dL (31-37) 33 g/dL (31-37) Red Cell Distribution Width 15.1 % (11.5-14.5) 15.1 % (11.5-14.5) Platelet Count 242 x10^3/uL (140-400) 212 x10^3/uL (140-400) Neutrophils (%) (Auto) 75 % (31-73) 67 % (31-73) Lymphocytes (%) (Auto) 16 % (24-48) 23 % (24-48) Monocytes (%) (Auto) 6 % (0-9) 7 % (0-9) Eosinophils (%) (Auto) 2 % (0-3) 2 % (0-3) Basophils (%) (Auto) 1 % (0-3) 1 % (0-3) Neutrophils # (Auto) 6.3 x10^3uL (1.8-7.7) 5.8 x10^3uL (1.8-7.7) Lymphocytes # (Auto) 1.4 x10^3/uL (1.0-4.8) 2.0 x10^3/uL (1.0-4.8) Monocytes # (Auto) 0.5 x10^3/uL (0.0-1.1) 0.6 x10^3/uL (0.0-1.1) Eosinophils # (Auto) 0.1 x10^3/uL (0.0-0.7) 0.2 x10^3/uL (0.0-0.7) Basophils # (Auto) 0.0 x10^3/uL (0.0-0.2) 0.1 x10^3/uL (0.0-0.2) Erythrocyte Sedimentation Rate 50 (0-25) Sodium Level 144 mmol/L (136-145) 146 mmol/L (136-145) Potassium Level 4.7 mmol/L (3.5-5.1) 5.1 mmol/L (3.5-5.1) Chloride Level 105 mmol/L (98-107) 106 mmol/L (98-107) Carbon Dioxide Level 32 mmol/L (21-32) 32 mmol/L (21-32) Anion Gap 7 (6-14) 8 (6-14) Blood Urea Nitrogen 45 mg/dL (7-20) 42 mg/dL (7-20) Creatinine 1.6 mg/dL (0.6-1.0) 1.8 mg/dL (0.6-1.0) Estimated GFR (Cockcroft-Gault) 31.0 27.1 BUN/Creatinine Ratio 28 (6-20) 23 (6-20) Glucose Level 136 mg/dL (70-99) 88 mg/dL (70-99) Calcium Level 8.7 mg/dL (8.5-10.1) 8.3 mg/dL (8.5-10.1) Magnesium Level 2.5 mg/dL (1.8-2.4) Total Bilirubin 0.2 mg/dL (0.2-1.0) 0.3 mg/dL (0.2-1.0) Aspartate Amino Transf (AST/SGOT) 20 U/L (15-37) 18 U/L (15-37) Alanine Aminotransferase (ALT/SGPT) 16 U/L (14-59) 18 U/L (14-59) Alkaline Phosphatase 78 U/L (46-116) 80 U/L (46-116) Total Protein 7.0 g/dL (6.4-8.2) 7.0 g/dL (6.4-8.2) Albumin 2.9 g/dL (3.4-5.0) 2.8 g/dL (3.4-5.0) Albumin/Globulin Ratio 0.7 (1.0-1.7) 0.7 (1.0-1.7) Urine Collection Type Unknown Urine Color Yellow Urine Clarity Clear Urine pH 7.5 Urine Specific [place] 1.015 Urine Protein 30 mg/dL (NEG-TRACE) Urine Glucose (UA) Negative mg/dL (NEG) Urine Ketones (Stick) Negative mg/dL (NEG) Urine Blood Negative (NEG) Urine Nitrite Positive (NEG) Urine Bilirubin Negative (NEG) Urine Urobilinogen Dipstick 0.2 mg/dL (0.2 mg/dL) Urine Leukocyte Esterase Small (NEG) Urine RBC Occ /HPF (0-2) Urine WBC >40 /HPF (0-4) Urine Squamous Epithelial Cells Occ /LPF Urine Bacteria Many /HPF (0-FEW) Laboratory Tests Test 11/20/17 16:15 11/20/17 23:55 11/21/17 03:50 White Blood Count 8.3 x10^3/uL (4.0-11.0) 8.6 x10^3/uL (4.0-11.0) Red Blood Count 2.91 x10^6/uL (3.50-5.40) 2.93 x10^6/uL (3.50-5.40) Hemoglobin 8.9 g/dL (12.0-15.5) 8.7 g/dL (12.0-15.5) Hematocrit 26.1 % (36.0-47.0) 26.5 % (36.0-47.0) Mean Corpuscular Volume 90 fL (79-100) 90 fL (79-100) Mean Corpuscular Hemoglobin 31 pg (25-35) 30 pg (25-35) Mean Corpuscular Hemoglobin Concent 34 g/dL (31-37) 33 g/dL (31-37) Red Cell Distribution Width 15.1 % (11.5-14.5) 15.1 % (11.5-14.5) Platelet Count 242 x10^3/uL (140-400) 212 x10^3/uL (140-400) Neutrophils (%) (Auto) 75 % (31-73) 67 % (31-73) Lymphocytes (%) (Auto) 16 % (24-48) 23 % (24-48) Monocytes (%) (Auto) 6 % (0-9) 7 % (0-9) Eosinophils (%) (Auto) 2 % (0-3) 2 % (0-3) Basophils (%) (Auto) 1 % (0-3) 1 % (0-3) Neutrophils # (Auto) 6.3 x10^3uL (1.8-7.7) 5.8 x10^3uL (1.8-7.7) Lymphocytes # (Auto) 1.4 x10^3/uL (1.0-4.8) 2.0 x10^3/uL (1.0-4.8) Monocytes # (Auto) 0.5 x10^3/uL (0.0-1.1) 0.6 x10^3/uL (0.0-1.1) Eosinophils # (Auto) 0.1 x10^3/uL (0.0-0.7) 0.2 x10^3/uL (0.0-0.7) Basophils # (Auto) 0.0 x10^3/uL (0.0-0.2) 0.1 x10^3/uL (0.0-0.2) Erythrocyte Sedimentation Rate 50 (0-25) Sodium Level 144 mmol/L (136-145) 146 mmol/L (136-145) Potassium Level 4.7 mmol/L (3.5-5.1) 5.1 mmol/L (3.5-5.1) Chloride Level 105 mmol/L (98-107) 106 mmol/L (98-107) Carbon Dioxide Level 32 mmol/L (21-32) 32 mmol/L (21-32) Anion Gap 7 (6-14) 8 (6-14) Blood Urea Nitrogen 45 mg/dL (7-20) 42 mg/dL (7-20) Creatinine 1.6 mg/dL (0.6-1.0) 1.8 mg/dL (0.6-1.0) Estimated GFR (Cockcroft-Gault) 31.0 27.1 BUN/Creatinine Ratio 28 (6-20) 23 (6-20) Glucose Level 136 mg/dL (70-99) 88 mg/dL (70-99) Calcium Level 8.7 mg/dL (8.5-10.1) 8.3 mg/dL (8.5-10.1) Magnesium Level 2.5 mg/dL (1.8-2.4) Total Bilirubin 0.2 mg/dL (0.2-1.0) 0.3 mg/dL (0.2-1.0) Aspartate Amino Transf (AST/SGOT) 20 U/L (15-37) 18 U/L (15-37) Alanine Aminotransferase (ALT/SGPT) 16 U/L (14-59) 18 U/L (14-59) Alkaline Phosphatase 78 U/L (46-116) 80 U/L (46-116) Total Protein 7.0 g/dL (6.4-8.2) 7.0 g/dL (6.4-8.2) Albumin 2.9 g/dL (3.4-5.0) 2.8 g/dL (3.4-5.0) Albumin/Globulin Ratio 0.7 (1.0-1.7) 0.7 (1.0-1.7) Urine Collection Type Unknown Urine Color Yellow Urine Clarity Clear Urine pH 7.5 Urine Specific [place] 1.015 Urine Protein 30 mg/dL (NEG-TRACE) Urine Glucose (UA) Negative mg/dL (NEG) Urine Ketones (Stick) Negative mg/dL (NEG) Urine Blood Negative (NEG) Urine Nitrite Positive (NEG) Urine Bilirubin Negative (NEG) Urine Urobilinogen Dipstick 0.2 mg/dL (0.2 mg/dL) Urine Leukocyte Esterase Small (NEG) Urine RBC Occ /HPF (0-2) Urine WBC >40 /HPF (0-4) Urine Squamous Epithelial Cells Occ /LPF Urine Bacteria Many /HPF (0-FEW) Assessment/Plan Assessment/Plan 1) Stage 4 sacral pressure wound - Cleanse and pat dry. Apply moistened Hydrofera Blue to wound base. Cover with contact layer and foam adhesive. Change every 3 days or prn if dressing loose or saturated. - Pt on offloading bed with Roho in w/c. - Nursing on q2h turning rotation 2) Stage 3 left plantar foot pressure wound - Cleanse and pat dry. Apply moistened Hydrofera Blue to wound base. Cover with contact layer and foam adhesive. Change every 3 days or prn if dressing loose or saturated.- - Heelmedix boot to help with offloading ELVIS LYNN DO 11/23/17 0756: CONSULT Assessment/Plan Assessment/Plan Patient seen and agree with above A/P CELSO CORDOBA APRN Nov 21, 2017 15:38 ELVIS LYNN DO Nov 23, 2017 07:56
--- NOTE | 2017-11-21 15:43 | CONS ---
DATE OF CONSULTATION: 11/21/2017 LOCATION: The patient's room is 508. REQUESTING PHYSICIAN: Dr. Rojas. REASON FOR CONSULTATION: Cellulitis. HISTORY OF PRESENT ILLNESS: The patient is an 82-year-old female with history of diabetes and peripheral arterial disease. She is somewhat of a poor historian. He has a history of an open reduction internal fixation of left heel ulcer and a history of a left hip fracture. The wound has been present since at least March and she underwent I and D of that done to the [facility] back in March. Had been doing fairly well. On 11/02/2017, she was found to have some peripheral arterial disease and was seen by Dr. Sharp. She underwent angioplasty of her left lower extremity. She then developed a right groin hematoma and was admitted. She has been undergoing wound care in the outpatient setting for a sacral pressure ulcer and a left plantar foot ulcer. Yesterday, she followed up routinely in Dr. Rojas's office and had a foul smell associated with the left lower extremity and some redness on leg and foot. There was no gross discharge. The wound had been changed the day prior too and because of that concern for cellulitis, she was admitted to [facility], placed on vancomycin and Zosyn and had been consulted for cellulitis of the left lower extremity. The patient was sleeping on my arrival. She is awakened easily. She denied any gross fevers or chills or sweats again, but she is somewhat of a poor historian. She denies taking any antimicrobials prior to being admitted, has no shortness of air, no nausea or vomiting. PAST MEDICAL HISTORY: Positive for previous urinary tract infections with E. coli resistant to ampicillin, intermediate to Augmentin, resistant to the quinolones, resistant to tobramycin, intermediate to piperacillin. Previous wound culture positive also has a history of peripheral arterial disease as mentioned above, history of a hematoma, hypertension, acute on chronic kidney disease, hyperlipidemia, bronchitis, myoclonic tremors, gastroesophageal reflux disease, hemorrhoids, iron deficiency anemia, osteoarthritis, rheumatoid arthritis, degenerative joint disease and hypothyroidism. PAST SURGICAL HISTORY: Positive for carpal tunnel surgery, bilateral foot surgeries, right hip wound, chronic nonhealing left foot wound, angioplasties as mentioned above, cholecystectomy, hysterectomy, tonsillectomy, appendectomy, left hip plate and screws, colon polyp removal, tubal adenoma, left knee replacement, bladder tack, skin flap for sacral decubitus ulcer, hemorrhoidectomy, cataract extractions. REVIEW OF SYSTEMS: Otherwise negative. ALLERGIES: No known drug allergies. SOCIAL HISTORY: No tobacco or alcohol. FAMILY HISTORY: Mother had coronary artery disease, myocardial infarction. CURRENT MEDICATIONS: Include Zosyn, vancomycin, Soma, Lasix, Neurontin, lactobacillus, Synthroid, Protonix, and Flomax. Other meds are available and reviewed in the chart. PHYSICAL EXAMINATION: VITAL SIGNS: She is afebrile, temperature 97.5, pulse 63, respirations 18, blood pressure 103/56, satting 97% on room air. CONSTITUTIONAL: She is cooperative. She was sleeping but awakened easily. She is in no acute distress. She looks thin. HEENT: Oral cavity, pharynx was dry. NECK: Supple. No JVD. LUNGS: Decreased at bases. HEART: S1, S2. ABDOMEN: Soft, nontender, nondistended with positive bowel sounds. EXTREMITIES: No clubbing or cyanosis. She has trace to 1+ lower extremity edema. There is no gross warmth or erythema. He has a plantar wound approximately 1.5 cm in size, appears fairly clean. There is an odor associated with it. She also has tenia bilaterally. SKIN: Otherwise, warm without signs of rash. NEUROLOGIC: She answers questions, but again seemed a little bit confused. Affect was flat. LABORATORY DATA: White count 8.6, hemoglobin 8.7, platelets are 212, neutrophils 67, lymphs 23 and creatinine of 1.8 up from 1.6. Normal liver function study tests. Urinalysis questionable for urinary tract infections although has occasional squamous cells. Chest x-ray, no acute process. IMPRESSION: 1. Left lower extremity cellulitis. 2. Tinea of the feet. 3. Acute kidney injury. 4. Questionable urinary tract infection present on admission, but has squamous cells. History of Escherichia coli. 5. Left plantar wound. 6. Peripheral arterial disease. History of angioplasty and then hematoma. RECOMMENDATIONS: For now, continue the Zosyn. We will add micafungin for yeast on her feet. We will discontinue the vancomycin, add Zyvox. Continue local wound care. Follow up labs and cultures. Thank you for asking us to participate in this patient's care. Should you have further questions, please do not hesitate to contact me. MARCELA TOLLIVER MD DR: SUKUMAR/daphney JOB#: [id number] / [id number]
[2017-11-21 19:00] VITALS: BP 115/48
[2017-11-21] MEDS: CARISOPRODOL 350 MG TABLET PO SCH (21:32)
[2017-11-21] MEDS: GABAPENTIN 100 MG CAPSULE. PO SCH (21:32)
[2017-11-21] MEDS: TAMSULOSIN 0.4 MG CAP.ER.24H. PO SCH (21:32)
[2017-11-21 23:00] VITALS: BP 104/30
[2017-11-22] MEDS: PIPERACILLIN/TAZOBACTAM 2.25 GM in IV NORMAL SALINE 50ML 50 ML IV SCH ×5 (00:01→23:29)
[2017-11-22 03:00] VITALS: BP 107/46
[2017-11-22] MEDS: oxyCODONE IR 5 MG TABLET PO PRN (05:08)
[2017-11-22] MEDS: LEVOTHYROXINE 112 MCG TABLET PO SCH (05:08)
[2017-11-22 06:06] LABS: CALCIUM 7.8 mg/dL (8.5-10.1); POTASSIUM 4.5 mmol/L (3.5-5.1)
[2017-11-22 06:08] LABS: BASO % 1 % (0-3); EOS # 0.1 x10^3/uL (0.0-0.7); EOS % 2 % (0-3); HEMATOCRIT 23.8 % (36.0-47.0); HEMOGLOBIN 7.9 g/dL (12.0-15.5); LYMPH # 1.7 x10^3/uL (1.0-4.8); LYMPH % 21 % (24-48); MEAN CORPUSCULAR HEMOGLOBIN 30 pg (25-35); MEAN CORPUSCULAR HGB CONC 33 g/dL (31-37); MEAN CORPUSCULAR VOLUME 90 fL (79-100); MONO # 0.6 x10^3/uL (0.0-1.1); MONO % 7 % (0-9); NEUT # 5.6 x10^3uL (1.8-7.7); NEUT % 69 % (31-73); PLATELET COUNT 181 x10^3/uL (140-400); RED BLOOD COUNT 2.64 x10^6/uL (3.50-5.40); RED CELL DISTRIBUTION WIDTH 15.2 % (11.5-14.5); WHITE BLOOD COUNT 8.1 x10^3/uL (4.0-11.0)
--- NOTE | 2017-11-22 06:51 | PDOC ---
Infectious Disease Note Subjective Subjective Feels better but is constipated Leg feels better No F/c/s/n/V/SOA/rash ROS ROS o/w neg Vital Sign Vital Signs Vital Signs Date Time Temp Pulse Resp B/P (MAP) Pulse Ox O2 Delivery O2 Flow Rate FiO2 11/22/17 06:08 94 Room Air 11/22/17 03:00 96.9 58 18 107/46 (66) 96.9 Physical Exam PHYSICAL EXAM CONSTITUTIONAL: She is cooperative. Very alert She is in no acute distress. She looks thin. HEENT: Oral cavity, pharynx was dry. NECK: Supple. No JVD. LUNGS: Decreased at bases. HEART: S1, S2. ABDOMEN: Soft, nontender, nondistended with positive bowel sounds. EXTREMITIES: No clubbing or cyanosis. She has trace to 1+ lower extremity edema. There is no gross warmth or erythema. He has a plantar wound approximately 1.5 cm in size, appears fairly clean. Hydophera blue There is still an odor associated with it. She also has tinia bilaterally. SKIN: Otherwise, warm without signs of rash. NEUROLOGIC: She answers questions, more alert Affect was pleasant Labs Lab Laboratory Tests Test 11/22/17 04:35 White Blood Count 8.1 x10^3/uL (4.0-11.0) Red Blood Count 2.64 x10^6/uL (3.50-5.40) Hemoglobin 7.9 g/dL (12.0-15.5) Hematocrit 23.8 % (36.0-47.0) Mean Corpuscular Volume 90 fL (79-100) Mean Corpuscular Hemoglobin 30 pg (25-35) Mean Corpuscular Hemoglobin Concent 33 g/dL (31-37) Red Cell Distribution Width 15.2 % (11.5-14.5) Platelet Count 181 x10^3/uL (140-400) Neutrophils (%) (Auto) 69 % (31-73) Lymphocytes (%) (Auto) 21 % (24-48) Monocytes (%) (Auto) 7 % (0-9) Eosinophils (%) (Auto) 2 % (0-3) Basophils (%) (Auto) 1 % (0-3) Neutrophils # (Auto) 5.6 x10^3uL (1.8-7.7) Lymphocytes # (Auto) 1.7 x10^3/uL (1.0-4.8) Monocytes # (Auto) 0.6 x10^3/uL (0.0-1.1) Eosinophils # (Auto) 0.1 x10^3/uL (0.0-0.7) Basophils # (Auto) 0.0 x10^3/uL (0.0-0.2) Sodium Level 146 mmol/L (136-145) Potassium Level 4.5 mmol/L (3.5-5.1) Chloride Level 107 mmol/L (98-107) Carbon Dioxide Level 32 mmol/L (21-32) Anion Gap 7 (6-14) Blood Urea Nitrogen 38 mg/dL (7-20) Creatinine 2.0 mg/dL (0.6-1.0) Estimated GFR (Cockcroft-Gault) 24.0 Glucose Level 76 mg/dL (70-99) Calcium Level 7.8 mg/dL (8.5-10.1) Micro Microbiology 11/20/17 Blood Culture - Preliminary, Resulted NO GROWTH AFTER 1 DAY Objective Assessment LE cellulitis Tinea feet MANE -worse - per primary Anemia - per primary ? UTI- POA but has squamous cells - H/o Ecoli Left plantar wound PAD - status post left lower extremity angiography with left tibioperoneal trunk and proximal peroneal angioplasty by Dr. Cespedes 11/02. Then hematoma Plan Plan of Care Cont Zosyn/ micafungin for yeast on feet zyvox Cont local wound care F/u labs and cults Constipation/Mane/anemia per primary MARCELA TOLLIVER MD Nov 22, 2017 06:51
[2017-11-22 07:00] VITALS: BP 107/47
[2017-11-22] MEDS: MULTIVITAMIN with MINERAL TABLET. PO SCH (09:24)
[2017-11-22] MEDS: LINEZOLID 600 MG TABLET PO SCH ×2 (09:24→21:45)
[2017-11-22] MEDS: PANTOPRAZOLE 40 MG TABLET.DR. PO SCH (09:24)
[2017-11-22] MEDS: FUROSEMIDE 20 MG TABLET PO SCH (09:24)
[2017-11-22] MEDS: LACTOBACILLUS RHAMNOSUS GG 1 CAPSULE. PO SCH ×2 (09:24→21:45)
[2017-11-22] MEDS: HEPARIN for SUB-Q USE 5,000 UNIT/ML VIAL. SQ SCH ×2 (09:37→21:53)
--- NOTE | 2017-11-22 10:05 | PDOC ---
IM PROGRESS NOTES- Subjective Subjective No complaints of pain or dyspnea. Objective Vitals Vital Signs Date Time Temp Pulse Resp B/P (MAP) Pulse Ox O2 Delivery O2 Flow Rate FiO2 11/22/17 07:00 97.6 60 16 107/47 (67) 95 Room Air 97.6 Input & Output Intake and Output 11/22/17 07:00 Intake Total 2080 ml Balance 2080 ml Intake Oral 2080 ml # Voids 8 # Bowel Movements 1 Physical Exam Physical Exam General appearance - alert,well appearing, and in no distress and oriented to person, place, and time Mental Status - alert, oriented to person, place, and time, affect appropriate to mood Head - normal Chest - clear to auscultation, no wheezes, rales or rhonchi, symmetric air entry Heart - S1 and S2 normal Abdomen - soft, nontender, nondistended, no masses or organomegaly Neurological - alert and oriented Musculoskeletal - no muscular tenderness noted Extremities - no pedal edema Skin - warm and dry Labs Laboratory Tests Test 11/20/17 16:15 11/20/17 23:55 11/21/17 03:50 11/22/17 04:35 White Blood Count 8.3 x10^3/uL (4.0-11.0) 8.6 x10^3/uL (4.0-11.0) 8.1 x10^3/uL (4.0-11.0) Red Blood Count 2.91 x10^6/uL (3.50-5.40) 2.93 x10^6/uL (3.50-5.40) 2.64 x10^6/uL (3.50-5.40) Hemoglobin 8.9 g/dL (12.0-15.5) 8.7 g/dL (12.0-15.5) 7.9 g/dL (12.0-15.5) Hematocrit 26.1 % (36.0-47.0) 26.5 % (36.0-47.0) 23.8 % (36.0-47.0) Mean Corpuscular Volume 90 fL (79-100) 90 fL (79-100) 90 fL (79-100) Mean Corpuscular Hemoglobin 31 pg (25-35) 30 pg (25-35) 30 pg (25-35) Mean Corpuscular Hemoglobin Concent 34 g/dL (31-37) 33 g/dL (31-37) 33 g/dL (31-37) Red Cell Distribution Width 15.1 % (11.5-14.5) 15.1 % (11.5-14.5) 15.2 % (11.5-14.5) Platelet Count 242 x10^3/uL (140-400) 212 x10^3/uL (140-400) 181 x10^3/uL (140-400) Neutrophils (%) (Auto) 75 % (31-73) 67 % (31-73) 69 % (31-73) Lymphocytes (%) (Auto) 16 % (24-48) 23 % (24-48) 21 % (24-48) Monocytes (%) (Auto) 6 % (0-9) 7 % (0-9) 7 % (0-9) Eosinophils (%) (Auto) 2 % (0-3) 2 % (0-3) 2 % (0-3) Basophils (%) (Auto) 1 % (0-3) 1 % (0-3) 1 % (0-3) Neutrophils # (Auto) 6.3 x10^3uL (1.8-7.7) 5.8 x10^3uL (1.8-7.7) 5.6 x10^3uL (1.8-7.7) Lymphocytes # (Auto) 1.4 x10^3/uL (1.0-4.8) 2.0 x10^3/uL (1.0-4.8) 1.7 x10^3/uL (1.0-4.8) Monocytes # (Auto) 0.5 x10^3/uL (0.0-1.1) 0.6 x10^3/uL (0.0-1.1) 0.6 x10^3/uL (0.0-1.1) Eosinophils # (Auto) 0.1 x10^3/uL (0.0-0.7) 0.2 x10^3/uL (0.0-0.7) 0.1 x10^3/uL (0.0-0.7) Basophils # (Auto) 0.0 x10^3/uL (0.0-0.2) 0.1 x10^3/uL (0.0-0.2) 0.0 x10^3/uL (0.0-0.2) Erythrocyte Sedimentation Rate 50 (0-25) Sodium Level 144 mmol/L (136-145) 146 mmol/L (136-145) 146 mmol/L (136-145) Potassium Level 4.7 mmol/L (3.5-5.1) 5.1 mmol/L (3.5-5.1) 4.5 mmol/L (3.5-5.1) Chloride Level 105 mmol/L (98-107) 106 mmol/L (98-107) 107 mmol/L (98-107) Carbon Dioxide Level 32 mmol/L (21-32) 32 mmol/L (21-32) 32 mmol/L (21-32) Anion Gap 7 (6-14) 8 (6-14) 7 (6-14) Blood Urea Nitrogen 45 mg/dL (7-20) 42 mg/dL (7-20) 38 mg/dL (7-20) Creatinine 1.6 mg/dL (0.6-1.0) 1.8 mg/dL (0.6-1.0) 2.0 mg/dL (0.6-1.0) Estimated GFR (Cockcroft-Gault) 31.0 27.1 24.0 BUN/Creatinine Ratio 28 (6-20) 23 (6-20) Glucose Level 136 mg/dL (70-99) 88 mg/dL (70-99) 76 mg/dL (70-99) Calcium Level 8.7 mg/dL (8.5-10.1) 8.3 mg/dL (8.5-10.1) 7.8 mg/dL (8.5-10.1) Magnesium Level 2.5 mg/dL (1.8-2.4) Total Bilirubin 0.2 mg/dL (0.2-1.0) 0.3 mg/dL (0.2-1.0) Aspartate Amino Transf (AST/SGOT) 20 U/L (15-37) 18 U/L (15-37) Alanine Aminotransferase (ALT/SGPT) 16 U/L (14-59) 18 U/L (14-59) Alkaline Phosphatase 78 U/L (46-116) 80 U/L (46-116) Total Protein 7.0 g/dL (6.4-8.2) 7.0 g/dL (6.4-8.2) Albumin 2.9 g/dL (3.4-5.0) 2.8 g/dL (3.4-5.0) Albumin/Globulin Ratio 0.7 (1.0-1.7) 0.7 (1.0-1.7) Urine Collection Type Unknown Urine Color Yellow Urine Clarity Clear Urine pH 7.5 Urine Specific [place] 1.015 Urine Protein 30 mg/dL (NEG-TRACE) Urine Glucose (UA) Negative mg/dL (NEG) Urine Ketones (Stick) Negative mg/dL (NEG) Urine Blood Negative (NEG) Urine Nitrite Positive (NEG) Urine Bilirubin Negative (NEG) Urine Urobilinogen Dipstick 0.2 mg/dL (0.2 mg/dL) Urine Leukocyte Esterase Small (NEG) Urine RBC Occ /HPF (0-2) Urine WBC >40 /HPF (0-4) Urine Squamous Epithelial Cells Occ /LPF Urine Bacteria Many /HPF (0-FEW) Laboratory Tests Test 11/22/17 04:35 White Blood Count 8.1 x10^3/uL (4.0-11.0) Red Blood Count 2.64 x10^6/uL (3.50-5.40) Hemoglobin 7.9 g/dL (12.0-15.5) Hematocrit 23.8 % (36.0-47.0) Mean Corpuscular Volume 90 fL (79-100) Mean Corpuscular Hemoglobin 30 pg (25-35) Mean Corpuscular Hemoglobin Concent 33 g/dL (31-37) Red Cell Distribution Width 15.2 % (11.5-14.5) Platelet Count 181 x10^3/uL (140-400) Neutrophils (%) (Auto) 69 % (31-73) Lymphocytes (%) (Auto) 21 % (24-48) Monocytes (%) (Auto) 7 % (0-9) Eosinophils (%) (Auto) 2 % (0-3) Basophils (%) (Auto) 1 % (0-3) Neutrophils # (Auto) 5.6 x10^3uL (1.8-7.7) Lymphocytes # (Auto) 1.7 x10^3/uL (1.0-4.8) Monocytes # (Auto) 0.6 x10^3/uL (0.0-1.1) Eosinophils # (Auto) 0.1 x10^3/uL (0.0-0.7) Basophils # (Auto) 0.0 x10^3/uL (0.0-0.2) Sodium Level 146 mmol/L (136-145) Potassium Level 4.5 mmol/L (3.5-5.1) Chloride Level 107 mmol/L (98-107) Carbon Dioxide Level 32 mmol/L (21-32) Anion Gap 7 (6-14) Blood Urea Nitrogen 38 mg/dL (7-20) Creatinine 2.0 mg/dL (0.6-1.0) Estimated GFR (Cockcroft-Gault) 24.0 Glucose Level 76 mg/dL (70-99) Calcium Level 7.8 mg/dL (8.5-10.1) Meds Current Medications Linezolid (Zyvox) 600 mg BID PO Last administered on 11/22/17at 09:24; Start 11/21/17 at 12:30 Micafungin Sodium 100 mg/Dextrose 100 ml @ 100 mls/hr Q24H IV Last administered on 11/21/17at 13:03; Start 11/21/17 at 12:00 Vancomycin HCl (Vancomycin Trough Level) 1 each 1X ONCE MC ; Start 11/24/17 at 17:30; Stop 11/24/17 at 17:30; Status DC Vancomycin HCl 750 mg/Sodium Chloride 250 ml @ 250 mls/hr Q48H IV ; Start at 18:00; Stop 11/22/17 at 18:00; Status DC Assessment Assessment 1. Cellulitis of left leg and foot. 2. Left heel wound. 3. Right hip wound. 4. Peripheral artery disease, recent left lower extremity angiography with left tibioperoneal trunk and proximal peroneal angioplasty by Dr. Cespedes. 5. Osteoarthritis. 6. Chronic kidney disease stage 4. 7. Zsgrp-tu-bmeyeve blood loss anemia. 8. History of hypertension. 9. History of myoclonic tremors secondary to acute renal failure previously. 10. Severe protein calorie malnutrition. 11. Neuropathy of lower extremities. 12. History of urinary retention. 13. Valvular insufficiency, zjvz-rh-cgghuyly mitral regurgitation and [id number] tricuspid regurgitation. 14. Hyperlipidemia. 15. Gastroesophageal reflux disease. 16. Chronic low back pain with history of implantable medication pump for pain management. 17. Nonambulatory due to lower leg weakness and deformities. 18 Hypernatremia. 19. Physical deconditioning. PLAN: Consult Dr. Wong for wound care evaluation and management. Consult Dr. Gomez for infectious disease evaluation and management. Condition and treatment discussed with him. Consult Dr. Knapp for nephrology evaluation and management. For details, please refer the orders. Cellulitis of left lower extremity- of the left lower extremity is improving. Patient is now on Zyvox, Zosyn and micafungin Fungal skin infection of feet- continue micafungin. Hypernatremia- monitor Plan Plan For more details regarding further plans, please refer to the orders. CHARLOTTE VUONG MD Nov 22, 2017 10:05
[2017-11-22 11:00] VITALS: BP 135/43
--- NOTE | 2017-11-22 11:23 | PDOC2 ---
CONSULT Date of Consult Date of Consult DATE: 11/22/17 TIME: 11:17 Referring Physician Referring Physician: Azotemia Source Source: Chart review, Patient History of Present Illness Reason for Visit: Pt is 82-year-old CF Hx of DM and peripheral arterial disease. History of an open reduction internal fixation of left heel ulcer and a history of a left hip fracture. Has a wound present since at least March and she underwent I and D She underwent angioplasty of her LL extremityin Oct 2017, for PAD , she developed a right groin hematoma and was admitted. She has been undergoing wound care in the outpatient setting for a sacral pressure ulcer and a left plantar foot ulcer. She was seen in PCP office had a foul smell associated with the left lower extremity and some redness on leg and foot. Past Medical History Cardiovascular: HTN, Hyperlipidemia Pulmonary: Bronchitis CENTRAL NERVOUS SYSTEM: Other GI: GERD, Hemorrhoids Heme/Onc: Anemia NOS Musculoskeletal: Osteoarthritis, Other Rheumatologic: Rheumatoid arthritis, Other Renal/: Chronic renal insuff Endocrine: Hypothyroidism Past Surgical History Past Surgical History: Appendectomy, Cholecystectomy, Cataract Removal, Total knee replacement, Tonsillectomy, Hysterectomy Family History Family History: Coronary Artery Disease Social History ALCOHOL: none Drugs: None Lives: with Family Current Medications Current Medications Current Medications Vancomycin HCl (Vanco Per Pharmacy) 1 each PRN DAILY PRN MC SEE COMMENTS Last administered on 11/20/17at 18:37; Start 11/20/17 at 16:00; Stop 11/21/17 at 11 :32; Status DC Piperacillin Sod/ Tazobactam Sod (Zosyn Per Pharmacy) 1 each PRN DAILY PRN MC SEE COMMENTS; Start 11/20/17 at 16:00 Acetaminophen (Tylenol) 650 mg PRN Q6HRS PRN PO MILD PAIN / TEMP; Start at 16:00 Carisoprodol (Soma) 350 mg QHS PO Last administered on 11/21/17at 21:32; Start 11/20/17 at 21:00 Furosemide (Lasix) 20 mg DAILY PO Last administered on 11/22/17at 09:24; Start 11/21/17 at 09:00 Gabapentin (Neurontin) 100 mg HS PO Last administered on 11/21/17at 21:32; Start 11/20/17 at 21:00 Levothyroxine Sodium (Synthroid) 112 mcg DAILY06 PO Last administered on at 05:08; Start 11/21/17 at 06:00 Tamsulosin HCl (Flomax) 0.4 mg QHS PO Last administered on 11/21/17at 21:32; Start 11/20/17 at 21:00 Multivitamins (Thera M Plus) 1 tab DAILY PO Last administered on 11/22/17at 09: 24; Start 11/21/17 at 09:00 Pantoprazole Sodium (Protonix) 40 mg DAILYAC PO Last administered on at 09:24; Start 11/21/17 at 07:30 Oxycodone HCl (Roxicodone) 15 mg PRN Q4HRS PRN PO PAIN Last administered on at 05:08; Start 11/20/17 at 16:00 Piperacillin Sod/ Tazobactam Sod 3.375 gm/Sodium Chloride 50 ml @ 100 mls/hr ONCE ONCE IV Last administered on 11/20/17at 17:39; Start 11/20/17 at 17:00; Stop 11/20/17 at 17:29; Status DC Vancomycin HCl 1 gm/Sodium Chloride 250 ml @ 250 mls/hr ONCE ONCE IV Last administered on 11/20/17at 17:40; Start 11/20/17 at 17:00; Stop 11/20/17 at 17 :59; Status DC Heparin Sodium (Porcine) (Heparin Sodium) 5,000 unit Q12HR SQ Last administered on 11/22/17at 09:37; Start 11/20/17 at 21:00 Piperacillin Sod/ Tazobactam Sod 2.25 gm/Sodium Chloride 50 ml @ 100 mls/hr Q6HRS IV Last administered on 11/22/17at 05:12; Start 11/21/17 at 00:00 Lactobacillus Rhamnosus (Culturelle) 1 cap BID PO Last administered on at 09:24; Start 11/20/17 at 21:00 Vancomycin HCl 750 mg/Sodium Chloride 250 ml @ 250 mls/hr Q48H IV ; Start at 18:00; Stop 11/22/17 at 18:00; Status DC Vancomycin HCl (Vancomycin Trough Level) 1 each 1X ONCE MC ; Start 11/24/17 at 17:30; Stop 11/24/17 at 17:30; Status DC Micafungin Sodium 100 mg/Dextrose 100 ml @ 100 mls/hr Q24H IV Last administered on 11/21/17at 13:03; Start 11/21/17 at 12:00 Linezolid (Zyvox) 600 mg BID PO Last administered on 11/22/17at 09:24; Start 11/21/17 at 12:30 Active Scripts Active Tylenol (Acetaminophen) 325 Mg Tablet 650 Mg PO PRN Q6HRS PRN Neurontin (Gabapentin) 100 Mg Capsule 100 Mg PO HS Reported Furosemide 20 Mg Tablet 20 Mg PO DAILY Oxycodone Hcl 15 Mg Tablet 15 Mg PO PRN Adults 50+ Multivitamin Tablet (Multivit-Min/FA/Lycopen/Lutein) 1 Each Tablet 1 Each PO DAILY Soma (Carisoprodol) 350 Mg Tablet 1 Tab PO QHS Flomax (Tamsulosin Hcl) 0.4 Mg Cap.er.24h 0.4 Mg PO QHS Omeprazole 40 Mg Capsule.dr 40 Mg PO BIDAC Synthroid (Levothyroxine Sodium) 112 Mcg Tablet 112 Mcg PO DAILY06 Allergies Allergies: Coded Allergies: No Known Drug Allergies (Unverified , 07/05/17) ROS Review of System As per HPI Physical Exam Physical Exam General- NAD HEENT: Om dry. NECK: Supple. No JVD. LUNGS: Decreased at bases. HEART: S1, S2. ABDOMEN: Soft, nontender, EXTREMITIES: trace to 1+ LE edema SKIN: No rash NEUROLOGIC: Ax O - No Lin Vital Signs Vital Signs Date Time Temp Pulse Resp B/P (MAP) Pulse Ox O2 Delivery O2 Flow Rate FiO2 11/22/17 07:00 97.6 60 16 107/47 (67) 95 Room Air 97.6 Assessment & Plan ARF - Renal function close to baseline Recent hospitalization recd IV Contrast ,? UTI E-Lytes stable, Fluid status stable Monitor Anemia - post procedure hematoma recent hospitalization recd 1 PRBC , Hgb mildly low As per primary , Aranesp as per protocol Hypernatremia -Mild CKD stage 3 -- Cr fluctuates between 1.4-1.8 Follows with us as OP at state office LE cellulitis ID following, On Abx ? UTI- Left heel wound- tibioperoneal trunk and peroneal artery stenosis s/p LLE angiography,L TP trunk and proximal peroneal angioplasty in oct/Nov 2017 Urinary retentionin Early nov bladder scan showed findings 550 mL ,Post Lin removal- No Urinary retention on Bladder scan Pt denies any complaints Labs Labs Laboratory Tests Test 11/20/17 16:15 11/20/17 23:55 11/21/17 03:50 11/22/17 04:35 White Blood Count 8.3 x10^3/uL (4.0-11.0) 8.6 x10^3/uL (4.0-11.0) 8.1 x10^3/uL (4.0-11.0) Red Blood Count 2.91 x10^6/uL (3.50-5.40) 2.93 x10^6/uL (3.50-5.40) 2.64 x10^6/uL (3.50-5.40) Hemoglobin 8.9 g/dL (12.0-15.5) 8.7 g/dL (12.0-15.5) 7.9 g/dL (12.0-15.5) Hematocrit 26.1 % (36.0-47.0) 26.5 % (36.0-47.0) 23.8 % (36.0-47.0) Mean Corpuscular Volume 90 fL (79-100) 90 fL (79-100) 90 fL (79-100) Mean Corpuscular Hemoglobin 31 pg (25-35) 30 pg (25-35) 30 pg (25-35) Mean Corpuscular Hemoglobin Concent 34 g/dL (31-37) 33 g/dL (31-37) 33 g/dL (31-37) Red Cell Distribution Width 15.1 % (11.5-14.5) 15.1 % (11.5-14.5) 15.2 % (11.5-14.5) Platelet Count 242 x10^3/uL (140-400) 212 x10^3/uL (140-400) 181 x10^3/uL (140-400) Neutrophils (%) (Auto) 75 % (31-73) 67 % (31-73) 69 % (31-73) Lymphocytes (%) (Auto) 16 % (24-48) 23 % (24-48) 21 % (24-48) Monocytes (%) (Auto) 6 % (0-9) 7 % (0-9) 7 % (0-9) Eosinophils (%) (Auto) 2 % (0-3) 2 % (0-3) 2 % (0-3) Basophils (%) (Auto) 1 % (0-3) 1 % (0-3) 1 % (0-3) Neutrophils # (Auto) 6.3 x10^3uL (1.8-7.7) 5.8 x10^3uL (1.8-7.7) 5.6 x10^3uL (1.8-7.7) Lymphocytes # (Auto) 1.4 x10^3/uL (1.0-4.8) 2.0 x10^3/uL (1.0-4.8) 1.7 x10^3/uL (1.0-4.8) Monocytes # (Auto) 0.5 x10^3/uL (0.0-1.1) 0.6 x10^3/uL (0.0-1.1) 0.6 x10^3/uL (0.0-1.1) Eosinophils # (Auto) 0.1 x10^3/uL (0.0-0.7) 0.2 x10^3/uL (0.0-0.7) 0.1 x10^3/uL (0.0-0.7) Basophils # (Auto) 0.0 x10^3/uL (0.0-0.2) 0.1 x10^3/uL (0.0-0.2) 0.0 x10^3/uL (0.0-0.2) Erythrocyte Sedimentation Rate 50 (0-25) Sodium Level 144 mmol/L (136-145) 146 mmol/L (136-145) 146 mmol/L (136-145) Potassium Level 4.7 mmol/L (3.5-5.1) 5.1 mmol/L (3.5-5.1) 4.5 mmol/L (3.5-5.1) Chloride Level 105 mmol/L (98-107) 106 mmol/L (98-107) 107 mmol/L (98-107) Carbon Dioxide Level 32 mmol/L (21-32) 32 mmol/L (21-32) 32 mmol/L (21-32) Anion Gap 7 (6-14) 8 (6-14) 7 (6-14) Blood Urea Nitrogen 45 mg/dL (7-20) 42 mg/dL (7-20) 38 mg/dL (7-20) Creatinine 1.6 mg/dL (0.6-1.0) 1.8 mg/dL (0.6-1.0) 2.0 mg/dL (0.6-1.0) Estimated GFR (Cockcroft-Gault) 31.0 27.1 24.0 BUN/Creatinine Ratio 28 (6-20) 23 (6-20) Glucose Level 136 mg/dL (70-99) 88 mg/dL (70-99) 76 mg/dL (70-99) Calcium Level 8.7 mg/dL (8.5-10.1) 8.3 mg/dL (8.5-10.1) 7.8 mg/dL (8.5-10.1) Magnesium Level 2.5 mg/dL (1.8-2.4) Total Bilirubin 0.2 mg/dL (0.2-1.0) 0.3 mg/dL (0.2-1.0) Aspartate Amino Transf (AST/SGOT) 20 U/L (15-37) 18 U/L (15-37) Alanine Aminotransferase (ALT/SGPT) 16 U/L (14-59) 18 U/L (14-59) Alkaline Phosphatase 78 U/L (46-116) 80 U/L (46-116) Total Protein 7.0 g/dL (6.4-8.2) 7.0 g/dL (6.4-8.2) Albumin 2.9 g/dL (3.4-5.0) 2.8 g/dL (3.4-5.0) Albumin/Globulin Ratio 0.7 (1.0-1.7) 0.7 (1.0-1.7) Urine Collection Type Unknown Urine Color Yellow Urine Clarity Clear Urine pH 7.5 Urine Specific [place] 1.015 Urine Protein 30 mg/dL (NEG-TRACE) Urine Glucose (UA) Negative mg/dL (NEG) Urine Ketones (Stick) Negative mg/dL (NEG) Urine Blood Negative (NEG) Urine Nitrite Positive (NEG) Urine Bilirubin Negative (NEG) Urine Urobilinogen Dipstick 0.2 mg/dL (0.2 mg/dL) Urine Leukocyte Esterase Small (NEG) Urine RBC Occ /HPF (0-2) Urine WBC >40 /HPF (0-4) Urine Squamous Epithelial Cells Occ /LPF Urine Bacteria Many /HPF (0-FEW) Laboratory Tests Test 11/22/17 04:35 White Blood Count 8.1 x10^3/uL (4.0-11.0) Red Blood Count 2.64 x10^6/uL (3.50-5.40) Hemoglobin 7.9 g/dL (12.0-15.5) Hematocrit 23.8 % (36.0-47.0) Mean Corpuscular Volume 90 fL (79-100) Mean Corpuscular Hemoglobin 30 pg (25-35) Mean Corpuscular Hemoglobin Concent 33 g/dL (31-37) Red Cell Distribution Width 15.2 % (11.5-14.5) Platelet Count 181 x10^3/uL (140-400) Neutrophils (%) (Auto) 69 % (31-73) Lymphocytes (%) (Auto) 21 % (24-48) Monocytes (%) (Auto) 7 % (0-9) Eosinophils (%) (Auto) 2 % (0-3) Basophils (%) (Auto) 1 % (0-3) Neutrophils # (Auto) 5.6 x10^3uL (1.8-7.7) Lymphocytes # (Auto) 1.7 x10^3/uL (1.0-4.8) Monocytes # (Auto) 0.6 x10^3/uL (0.0-1.1) Eosinophils # (Auto) 0.1 x10^3/uL (0.0-0.7) Basophils # (Auto) 0.0 x10^3/uL (0.0-0.2) Sodium Level 146 mmol/L (136-145) Potassium Level 4.5 mmol/L (3.5-5.1) Chloride Level 107 mmol/L (98-107) Carbon Dioxide Level 32 mmol/L (21-32) Anion Gap 7 (6-14) Blood Urea Nitrogen 38 mg/dL (7-20) Creatinine 2.0 mg/dL (0.6-1.0) Estimated GFR (Cockcroft-Gault) 24.0 Glucose Level 76 mg/dL (70-99) Calcium Level 7.8 mg/dL (8.5-10.1) Review All relevant outside records, renal labs, imaging studies, telemetry/EKG's were reviewed. JENNIE SAUCEDO MD Nov 22, 2017 11:23
[2017-11-22] MEDS: MICAFUNGIN 100 MG in IV DEXTROSE 5% 100ML 100 ML IV SCH (12:48)
[2017-11-22 15:00] VITALS: BP 134/32
[2017-11-22] MEDS ORDERED: VANCOMYCIN 750 MG in IV NORMAL SALINE 250ML 250 ML IV SCH (18:00)
[2017-11-22 19:00] VITALS: BP 110/44
[2017-11-22] MEDS: CARISOPRODOL 350 MG TABLET PO SCH (21:44)
[2017-11-22] MEDS: GABAPENTIN 100 MG CAPSULE. PO SCH (21:45)
[2017-11-22] MEDS: TAMSULOSIN 0.4 MG CAP.ER.24H. PO SCH (21:45)
[2017-11-22 23:00] VITALS: BP 158/53
[2017-11-23 03:00] VITALS: BP 143/56
[2017-11-23] MEDS: PIPERACILLIN/TAZOBACTAM 2.25 GM in IV NORMAL SALINE 50ML 50 ML IV SCH ×4 (05:46→23:43)
[2017-11-23] MEDS: LEVOTHYROXINE 112 MCG TABLET PO SCH (05:46)
[2017-11-23 07:00] VITALS: BP 123/55
[2017-11-23 08:37] LABS: BASO # 0.1 x10^3/uL (0.0-0.2); BASO % 1 % (0-3); EOS # 0.2 x10^3/uL (0.0-0.7); EOS % 3 % (0-3); HEMOGLOBIN 8.8 g/dL (12.0-15.5); LYMPH # 1.3 x10^3/uL (1.0-4.8); LYMPH % 18 % (24-48); MEAN CORPUSCULAR HEMOGLOBIN 30 pg (25-35); MEAN CORPUSCULAR HGB CONC 33 g/dL (31-37); MEAN CORPUSCULAR VOLUME 91 fL (79-100); MONO # 0.6 x10^3/uL (0.0-1.1); MONO % 8 % (0-9); NEUT # 5.3 x10^3uL (1.8-7.7); NEUT % 71 % (31-73); PLATELET COUNT 177 x10^3/uL (140-400); RED BLOOD COUNT 2.97 x10^6/uL (3.50-5.40); RED CELL DISTRIBUTION WIDTH 15.4 % (11.5-14.5); WHITE BLOOD COUNT 7.5 x10^3/uL (4.0-11.0)
[2017-11-23 08:42] LABS: CALCIUM 8.3 mg/dL (8.5-10.1); CREATININE 1.9 mg/dL (0.6-1.0); GFR 25.4; POTASSIUM 4.5 mmol/L (3.5-5.1)
[2017-11-23] MEDS: LACTOBACILLUS RHAMNOSUS GG 1 CAPSULE. PO SCH ×2 (09:04→20:38)
[2017-11-23] MEDS: PANTOPRAZOLE 40 MG TABLET.DR. PO SCH (09:04)
[2017-11-23] MEDS: FUROSEMIDE 20 MG TABLET PO SCH (09:05)
[2017-11-23] MEDS: LINEZOLID 600 MG TABLET PO SCH ×2 (09:06→20:38)
[2017-11-23] MEDS: MULTIVITAMIN with MINERAL TABLET. PO SCH (09:06)
[2017-11-23] MEDS: HEPARIN for SUB-Q USE 5,000 UNIT/ML VIAL. SQ SCH ×2 (09:28→20:44)
--- NOTE | 2017-11-23 09:44 | PDOC ---
Infectious Disease Note Subjective Subjective Feels better but sis now having loose stool Leg feels better No F/c/s/n/V/SOA/rash Vital Sign Vital Signs Vital Signs Date Time Temp Pulse Resp B/P (MAP) Pulse Ox O2 Delivery O2 Flow Rate FiO2 11/23/17 07:00 98.3 58 18 123/55 (77) 96 Room Air 98.3 Physical Exam PHYSICAL EXAM CONSTITUTIONAL: She is cooperative. Very alert She is in no acute distress. She looks thin. HEENT: Oral cavity, pharynx was dry. NECK: Supple. No JVD. LUNGS: Decreased at bases. HEART: S1, S2. ABDOMEN: Soft, nontender, nondistended with positive bowel sounds. EXTREMITIES: No clubbing or cyanosis. She has trace to 1+ lower extremity edema. There is no gross warmth or erythema. He has a plantar wound approximately 1.5 cm in size, appears fairly clean. Hydophera blue There is still an odor associated with it. She also has tinia bilaterally. SKIN: Otherwise, warm without signs of rash. NEUROLOGIC: She answers questions, more alert Affect was pleasant Labs Lab Laboratory Tests Test 11/23/17 07:43 White Blood Count 7.5 x10^3/uL (4.0-11.0) Red Blood Count 2.97 x10^6/uL (3.50-5.40) Hemoglobin 8.8 g/dL (12.0-15.5) Hematocrit 27.0 % (36.0-47.0) Mean Corpuscular Volume 91 fL (79-100) Mean Corpuscular Hemoglobin 30 pg (25-35) Mean Corpuscular Hemoglobin Concent 33 g/dL (31-37) Red Cell Distribution Width 15.4 % (11.5-14.5) Platelet Count 177 x10^3/uL (140-400) Neutrophils (%) (Auto) 71 % (31-73) Lymphocytes (%) (Auto) 18 % (24-48) Monocytes (%) (Auto) 8 % (0-9) Eosinophils (%) (Auto) 3 % (0-3) Basophils (%) (Auto) 1 % (0-3) Neutrophils # (Auto) 5.3 x10^3uL (1.8-7.7) Lymphocytes # (Auto) 1.3 x10^3/uL (1.0-4.8) Monocytes # (Auto) 0.6 x10^3/uL (0.0-1.1) Eosinophils # (Auto) 0.2 x10^3/uL (0.0-0.7) Basophils # (Auto) 0.1 x10^3/uL (0.0-0.2) Sodium Level 145 mmol/L (136-145) Potassium Level 4.5 mmol/L (3.5-5.1) Chloride Level 106 mmol/L (98-107) Carbon Dioxide Level 32 mmol/L (21-32) Anion Gap 7 (6-14) Blood Urea Nitrogen 31 mg/dL (7-20) Creatinine 1.9 mg/dL (0.6-1.0) Estimated GFR (Cockcroft-Gault) 25.4 Glucose Level 97 mg/dL (70-99) Calcium Level 8.3 mg/dL (8.5-10.1) Micro Microbiology 11/20/17 Blood Culture - Preliminary, Resulted NO GROWTH AFTER 1 DAY Objective Assessment LE cellulitis Tinea feet MANE better Anemia -better ? UTI- POA but has squamous cells - Ecoli Left plantar wound PAD - status post left lower extremity angiography with left tibioperoneal trunk and proximal peroneal angioplasty by Dr. Cespedes 11/02. Then hematoma Plan Plan of Care Cont Zosyn/ micafungin for yeast on feet zyvox Cont local wound care F/u labs and cults - urine MARCELA TOLLIVER MD Nov 23, 2017 09:44
--- NOTE | 2017-11-23 10:41 | PDOC ---
IM PROGRESS NOTES- Subjective Subjective She continues to have severe watery diarrhea. No complaints of vomiting. Diarrhea started immediately when she came to the hospital. Objective Vitals Vital Signs Date Time Temp Pulse Resp B/P (MAP) Pulse Ox O2 Delivery O2 Flow Rate FiO2 11/23/17 07:00 98.3 58 18 123/55 (77) 96 Room Air 98.3 Input & Output Intake and Output 11/23/17 07:00 Intake Total 500 ml Balance 500 ml Intake Oral 500 ml # Voids 7 # Bowel Movements 5 Physical Exam Physical Exam GENERAL: The patient is an elderly female who is alert, oriented x 3, malnourished, wheelchair bound and not in acute distress. HEENT: The patient is alert, oriented, chronically ill-appearing, not in acute distress. LUNGS: Decreased breath sounds at bases. CARDIOVASCULAR: S1, S2 regular. ABDOMEN: Soft, nontender, no guarding, no rigidity. Bowel sounds present. EYES: Pupils reacting to light. Conjunctivae pale. Sclerae muddy. HENT: Unremarkable. NECK: Supple. JVP normal. No thyromegaly. Trachea midline. SKIN: The patient has a left heel wound that is clean and also has a right hip wound. Peripheral pulse decreased. EXTREMITIES: The patient has swelling 2-3+ of the left lower extremity with redness, increased warmth and edema. No calf tenderness. The patient also has significant swelling of the left foot. CENTRAL NERVOUS SYSTEM: Generalized weakness. Labs Laboratory Tests Test 11/22/17 04:35 11/23/17 07:43 White Blood Count 8.1 x10^3/uL (4.0-11.0) 7.5 x10^3/uL (4.0-11.0) Red Blood Count 2.64 x10^6/uL (3.50-5.40) 2.97 x10^6/uL (3.50-5.40) Hemoglobin 7.9 g/dL (12.0-15.5) 8.8 g/dL (12.0-15.5) Hematocrit 23.8 % (36.0-47.0) 27.0 % (36.0-47.0) Mean Corpuscular Volume 90 fL (79-100) 91 fL (79-100) Mean Corpuscular Hemoglobin 30 pg (25-35) 30 pg (25-35) Mean Corpuscular Hemoglobin Concent 33 g/dL (31-37) 33 g/dL (31-37) Red Cell Distribution Width 15.2 % (11.5-14.5) 15.4 % (11.5-14.5) Platelet Count 181 x10^3/uL (140-400) 177 x10^3/uL (140-400) Neutrophils (%) (Auto) 69 % (31-73) 71 % (31-73) Lymphocytes (%) (Auto) 21 % (24-48) 18 % (24-48) Monocytes (%) (Auto) 7 % (0-9) 8 % (0-9) Eosinophils (%) (Auto) 2 % (0-3) 3 % (0-3) Basophils (%) (Auto) 1 % (0-3) 1 % (0-3) Neutrophils # (Auto) 5.6 x10^3uL (1.8-7.7) 5.3 x10^3uL (1.8-7.7) Lymphocytes # (Auto) 1.7 x10^3/uL (1.0-4.8) 1.3 x10^3/uL (1.0-4.8) Monocytes # (Auto) 0.6 x10^3/uL (0.0-1.1) 0.6 x10^3/uL (0.0-1.1) Eosinophils # (Auto) 0.1 x10^3/uL (0.0-0.7) 0.2 x10^3/uL (0.0-0.7) Basophils # (Auto) 0.0 x10^3/uL (0.0-0.2) 0.1 x10^3/uL (0.0-0.2) Sodium Level 146 mmol/L (136-145) 145 mmol/L (136-145) Potassium Level 4.5 mmol/L (3.5-5.1) 4.5 mmol/L (3.5-5.1) Chloride Level 107 mmol/L (98-107) 106 mmol/L (98-107) Carbon Dioxide Level 32 mmol/L (21-32) 32 mmol/L (21-32) Anion Gap 7 (6-14) 7 (6-14) Blood Urea Nitrogen 38 mg/dL (7-20) 31 mg/dL (7-20) Creatinine 2.0 mg/dL (0.6-1.0) 1.9 mg/dL (0.6-1.0) Estimated GFR (Cockcroft-Gault) 24.0 25.4 Glucose Level 76 mg/dL (70-99) 97 mg/dL (70-99) Calcium Level 7.8 mg/dL (8.5-10.1) 8.3 mg/dL (8.5-10.1) Laboratory Tests Test 11/23/17 07:43 White Blood Count 7.5 x10^3/uL (4.0-11.0) Red Blood Count 2.97 x10^6/uL (3.50-5.40) Hemoglobin 8.8 g/dL (12.0-15.5) Hematocrit 27.0 % (36.0-47.0) Mean Corpuscular Volume 91 fL (79-100) Mean Corpuscular Hemoglobin 30 pg (25-35) Mean Corpuscular Hemoglobin Concent 33 g/dL (31-37) Red Cell Distribution Width 15.4 % (11.5-14.5) Platelet Count 177 x10^3/uL (140-400) Neutrophils (%) (Auto) 71 % (31-73) Lymphocytes (%) (Auto) 18 % (24-48) Monocytes (%) (Auto) 8 % (0-9) Eosinophils (%) (Auto) 3 % (0-3) Basophils (%) (Auto) 1 % (0-3) Neutrophils # (Auto) 5.3 x10^3uL (1.8-7.7) Lymphocytes # (Auto) 1.3 x10^3/uL (1.0-4.8) Monocytes # (Auto) 0.6 x10^3/uL (0.0-1.1) Eosinophils # (Auto) 0.2 x10^3/uL (0.0-0.7) Basophils # (Auto) 0.1 x10^3/uL (0.0-0.2) Sodium Level 145 mmol/L (136-145) Potassium Level 4.5 mmol/L (3.5-5.1) Chloride Level 106 mmol/L (98-107) Carbon Dioxide Level 32 mmol/L (21-32) Anion Gap 7 (6-14) Blood Urea Nitrogen 31 mg/dL (7-20) Creatinine 1.9 mg/dL (0.6-1.0) Estimated GFR (Cockcroft-Gault) 25.4 Glucose Level 97 mg/dL (70-99) Calcium Level 8.3 mg/dL (8.5-10.1) Meds Current Medications Vancomycin HCl (Vancomycin Trough Level) 1 each 1X ONCE MC ; Start 11/24/17 at 17:30; Stop 11/24/17 at 17:30; Status DC Vancomycin HCl 750 mg/Sodium Chloride 250 ml @ 250 mls/hr Q48H IV ; Start at 18:00; Stop 11/22/17 at 18:00; Status DC Assessment Assessment 1. Cellulitis of left leg and foot. 2. Left heel wound. 3. Right hip wound. 4. Peripheral artery disease, recent left lower extremity angiography with left tibioperoneal trunk and proximal peroneal angioplasty by Dr. Cespedes. 5. Osteoarthritis. 6. Chronic kidney disease stage 4. 7. [id number]-[id number] blood loss anemia. 8. History of hypertension. 9. History of myoclonic tremors secondary to acute renal failure previously. 10. Severe protein calorie malnutrition. 11. Neuropathy of lower extremities. 12. History of urinary retention. 13. Valvular insufficiency, bern-fw-sklyysvz mitral regurgitation and owum-ny-sufzgwnt tricuspid regurgitation. 14. Hyperlipidemia. 15. Gastroesophageal reflux disease. 16. Chronic low back pain with history of implantable medication pump for pain management. 17. Nonambulatory due to lower leg weakness and deformities. 18 Hypernatremia. 19. Physical deconditioning. PLAN: Consult Dr. Wong for wound care evaluation and management. Consult Dr. Gomez for infectious disease evaluation and management. Condition and treatment discussed with him. Consult Dr. Knapp for nephrology evaluation and management. For details, please refer the orders. Cellulitis of left lower extremity- of the left lower extremity is slowly improving. Patient is now on Zyvox, Zosyn and micafungin Fungal skin infection of feet- continue micafungin. Hypernatremia- monitor Severe diarrhea- tooth C. difficile pending. I will discontinue oral Lasix. Acute renal failure with chronic kidney disease. 10 and has increased to 2 BUN is 38. This is most likely due to diarrhea. Discontinue Lasix. Encouraged her to drink more fluids. Plan Plan For more details regarding further plans, please refer to the orders. CHARLOTTE VUONG MD Nov 23, 2017 10:41
[2017-11-23 11:00] VITALS: BP 133/62
--- NOTE | 2017-11-23 11:13 | PDOC ---
SUBJECTIVE ROS Stable OBJECTIVE Vital Signs Vital Signs Date Time Temp Pulse Resp B/P (MAP) Pulse Ox O2 Delivery O2 Flow Rate FiO2 11/23/17 07:00 98.3 58 18 123/55 (77) 96 Room Air 98.3 I & 0 Intake and Output 11/23/17 07:00 Intake Total 500 ml Balance 500 ml Intake Oral 500 ml # Voids 7 # Bowel Movements 5 PHYSICAL EXAM Physical Exam General- NAD HEENT: Om dry. NECK: Supple. No JVD. LUNGS: Decreased at bases. HEART: S1, S2. ABDOMEN: Soft, nontender, EXTREMITIES: trace to 1+ LE edema SKIN: No rash NEUROLOGIC: Ax O - No Lin DIAGNOSIS/ASSESSMENT Assessment & Plan ARF - Renal function close to baseline Recent hospitalization recd IV Contrast ,? UTI E-Lytes stable, Fluid status stable Monitor Anemia - post procedure hematoma recent hospitalization recd 1 PRBC , Hgb mildly low As per primary , Aranesp as per protocol Hypernatremia - resolved CKD stage 3 -- Cr fluctuates between 1.4-1.8 Follows with us [facility] LE cellulitis ID following, On Abx ? UTI-defer to primary Left heel wound- tibioperoneal trunk and peroneal artery stenosis s/p LLE angiography,L TP trunk and proximal peroneal angioplasty in oct/Nov 2017 Urinary retentionin Early nov bladder scan showed findings 550 mL ,Post Lin removal- No Urinary retention on Bladder scan Pt denies any complaints COMMENT/RELEVANT DATA Meds Current Medications Medications (Trade) Dose Ordered Sig/Beatriec Start Time Stop Time Status Last Admin Dose Admin Acetaminophen (Tylenol) 650 mg PRN Q6HRS PRN 11/20/17 16:00 Carisoprodol (Soma) 350 mg QHS 11/20/17 21:00 11/22/17 21:44 350 MG Furosemide (Lasix) 20 mg DAILY 11/21/17 09:00 11/23/17 10:37 DC 11/23/17 09:05 20 MG Gabapentin (Neurontin) 100 mg HS 11/20/17 21:00 11/22/17 21:45 100 MG Heparin Sodium (Porcine) (Heparin Sodium) 5,000 unit Q12HR 11/20/17 21:00 11/23/17 09:28 5,000 UNIT Lactobacillus Rhamnosus (Culturelle) 1 cap BID 11/20/17 21:00 11/23/17 09:04 1 CAP Levothyroxine Sodium (Synthroid) 112 mcg DAILY06 11/21/17 06:00 11/23/17 05:46 112 MCG Linezolid (Zyvox) 600 mg BID 11/21/17 12:30 11/23/17 09:06 600 MG Micafungin Sodium 100 mg/Dextrose 100 ml @ 100 mls/hr Q24H 11/21/17 12:00 11/22/17 12:48 100 MLS/HR Multivitamins (Thera M Plus) 1 tab DAILY 11/21/17 09:00 11/23/17 09:06 1 TAB Oxycodone HCl (Roxicodone) 15 mg PRN Q4HRS PRN 11/20/17 16:00 11/22/17 05:08 15 MG Pantoprazole Sodium (Protonix) 40 mg DAILYAC 11/21/17 07:30 11/23/17 09:04 40 MG Piperacillin Sod/ Tazobactam Sod (Zosyn Per Pharmacy) 1 each PRN DAILY PRN 11/20/17 16:00 Piperacillin Sod/ Tazobactam Sod 2.25 gm/Sodium Chloride 50 ml @ 100 mls/hr Q6HRS 11/21/17 00:00 11/23/17 05:46 100 MLS/HR Piperacillin Sod/ Tazobactam Sod 3.375 gm/Sodium Chloride 50 ml @ 100 mls/hr ONCE ONCE 11/20/17 17:00 11/20/17 17:29 DC 11/20/17 17:39 100 MLS/HR Tamsulosin HCl (Flomax) 0.4 mg QHS 11/20/17 21:00 11/22/17 21:45 0.4 MG Vancomycin HCl (Vanco Per Pharmacy) 1 each PRN DAILY PRN 11/20/17 16:00 11/21/17 11:32 DC 11/20/17 18:37 1 EACH Vancomycin HCl (Vancomycin Trough Level) 1 each 1X ONCE 11/24/17 17:30 11/24/17 17:30 DC Vancomycin HCl 750 mg/Sodium Chloride 250 ml @ 250 mls/hr Q48H 11/22/17 18:00 11/22/17 18:00 DC Vancomycin HCl 1 gm/Sodium Chloride 250 ml @ 250 mls/hr ONCE ONCE 11/20/17 17:00 11/20/17 17:59 DC 11/20/17 17:40 250 MLS/HR Lab Laboratory Tests Test 11/23/17 07:43 White Blood Count 7.5 x10^3/uL (4.0-11.0) Red Blood Count 2.97 x10^6/uL (3.50-5.40) Hemoglobin 8.8 g/dL (12.0-15.5) Hematocrit 27.0 % (36.0-47.0) Mean Corpuscular Volume 91 fL (79-100) Mean Corpuscular Hemoglobin 30 pg (25-35) Mean Corpuscular Hemoglobin Concent 33 g/dL (31-37) Red Cell Distribution Width 15.4 % (11.5-14.5) Platelet Count 177 x10^3/uL (140-400) Neutrophils (%) (Auto) 71 % (31-73) Lymphocytes (%) (Auto) 18 % (24-48) Monocytes (%) (Auto) 8 % (0-9) Eosinophils (%) (Auto) 3 % (0-3) Basophils (%) (Auto) 1 % (0-3) Neutrophils # (Auto) 5.3 x10^3uL (1.8-7.7) Lymphocytes # (Auto) 1.3 x10^3/uL (1.0-4.8) Monocytes # (Auto) 0.6 x10^3/uL (0.0-1.1) Eosinophils # (Auto) 0.2 x10^3/uL (0.0-0.7) Basophils # (Auto) 0.1 x10^3/uL (0.0-0.2) Sodium Level 145 mmol/L (136-145) Potassium Level 4.5 mmol/L (3.5-5.1) Chloride Level 106 mmol/L (98-107) Carbon Dioxide Level 32 mmol/L (21-32) Anion Gap 7 (6-14) Blood Urea Nitrogen 31 mg/dL (7-20) Creatinine 1.9 mg/dL (0.6-1.0) Estimated GFR (Cockcroft-Gault) 25.4 Glucose Level 97 mg/dL (70-99) Calcium Level 8.3 mg/dL (8.5-10.1) Results All relevant outside records, renal labs, imaging studies, telemetry/EKG's were reviewed. JENNIE SAUCEDO MD Nov 23, 2017 11:13
[2017-11-23] MEDS: MICAFUNGIN 100 MG in IV DEXTROSE 5% 100ML 100 ML IV SCH (13:06)
[2017-11-23 15:00] VITALS: BP 127/63
[2017-11-23 19:00] VITALS: BP 115/50
[2017-11-23] MEDS: GABAPENTIN 100 MG CAPSULE. PO SCH (20:38)
[2017-11-23] MEDS: TAMSULOSIN 0.4 MG CAP.ER.24H. PO SCH (20:38)
[2017-11-23] MEDS: CARISOPRODOL 350 MG TABLET PO SCH (20:38)
[2017-11-23 23:02] VITALS: BP 127/54
[2017-11-24 03:07] VITALS: BP 123/64
[2017-11-24 05:24] LABS: BASO % 1 % (0-3); EOS # 0.2 x10^3/uL (0.0-0.7); EOS % 4 % (0-3); HEMATOCRIT 25.7 % (36.0-47.0); HEMOGLOBIN 8.5 g/dL (12.0-15.5); LYMPH # 1.5 x10^3/uL (1.0-4.8); LYMPH % 22 % (24-48); MEAN CORPUSCULAR HEMOGLOBIN 30 pg (25-35); MEAN CORPUSCULAR HGB CONC 33 g/dL (31-37); MEAN CORPUSCULAR VOLUME 91 fL (79-100); MONO # 0.5 x10^3/uL (0.0-1.1); MONO % 8 % (0-9); NEUT # 4.6 x10^3uL (1.8-7.7); NEUT % 66 % (31-73); PLATELET COUNT 176 x10^3/uL (140-400); RED BLOOD COUNT 2.82 x10^6/uL (3.50-5.40); RED CELL DISTRIBUTION WIDTH 15.2 % (11.5-14.5); WHITE BLOOD COUNT 6.9 x10^3/uL (4.0-11.0)
[2017-11-24 05:43] LABS: CALCIUM 8.2 mg/dL (8.5-10.1); CREATININE 2.1 mg/dL (0.6-1.0); GFR 22.7; POTASSIUM 4.6 mmol/L (3.5-5.1)
[2017-11-24] MEDS: LEVOTHYROXINE 112 MCG TABLET PO SCH (05:44)
[2017-11-24] MEDS: PIPERACILLIN/TAZOBACTAM 2.25 GM in IV NORMAL SALINE 50ML 50 ML IV SCH ×2 (05:44→12:05)
[2017-11-24 07:00] VITALS: BP 116/41
[2017-11-24] MEDS: PANTOPRAZOLE 40 MG TABLET.DR. PO SCH (10:03)
[2017-11-24] MEDS: LACTOBACILLUS RHAMNOSUS GG 1 CAPSULE. PO SCH ×2 (10:03→21:19)
[2017-11-24] MEDS: MULTIVITAMIN with MINERAL TABLET. PO SCH (10:04)
[2017-11-24] MEDS: LINEZOLID 600 MG TABLET PO SCH (10:04)
[2017-11-24] MEDS: HEPARIN for SUB-Q USE 5,000 UNIT/ML VIAL. SQ SCH ×2 (10:06→21:19)
--- NOTE | 2017-11-24 10:09 | PDOC ---
IM PROGRESS NOTES- Subjective Subjective She continues to have watery diarrhea. No complaints of vomiting. Objective Vitals Vital Signs Date Time Temp Pulse Resp B/P (MAP) Pulse Ox O2 Delivery O2 Flow Rate FiO2 11/24/17 07:00 97.7 57 18 116/41 (66) 98 Room Air 97.7 Input & Output Intake and Output 11/24/17 07:00 Intake Total 240 ml Output Total 700 ml Balance -460 ml Intake Oral 240 ml Output Urine Total 700 ml # Voids 4 # Bowel Movements 5 Physical Exam Physical Exam GENERAL: The patient is an elderly female who is alert, oriented x 3, malnourished, wheelchair bound and not in acute distress. HEENT: The patient is alert, oriented, chronically ill-appearing, not in acute distress. LUNGS: Decreased breath sounds at bases. CARDIOVASCULAR: S1, S2 regular. ABDOMEN: Soft, nontender, no guarding, no rigidity. Bowel sounds present. EYES: Pupils reacting to light. Conjunctivae pale. Sclerae muddy. HENT: Unremarkable. NECK: Supple. JVP normal. No thyromegaly. Trachea midline. SKIN: The patient has a left heel wound that is clean and also has a right hip wound. Peripheral pulse decreased. EXTREMITIES: The patient has swelling 2-3+ of the left lower extremity with redness, increased warmth and edema. No calf tenderness. The patient also has significant swelling of the left foot. CENTRAL NERVOUS SYSTEM: Generalized weakness. Labs Laboratory Tests Test 11/23/17 07:30 11/23/17 07:43 11/24/17 04:30 Clostridium difficile Toxin (PCR) Negative (Negative) White Blood Count 7.5 x10^3/uL (4.0-11.0) 6.9 x10^3/uL (4.0-11.0) Red Blood Count 2.97 x10^6/uL (3.50-5.40) 2.82 x10^6/uL (3.50-5.40) Hemoglobin 8.8 g/dL (12.0-15.5) 8.5 g/dL (12.0-15.5) Hematocrit 27.0 % (36.0-47.0) 25.7 % (36.0-47.0) Mean Corpuscular Volume 91 fL (79-100) 91 fL (79-100) Mean Corpuscular Hemoglobin 30 pg (25-35) 30 pg (25-35) Mean Corpuscular Hemoglobin Concent 33 g/dL (31-37) 33 g/dL (31-37) Red Cell Distribution Width 15.4 % (11.5-14.5) 15.2 % (11.5-14.5) Platelet Count 177 x10^3/uL (140-400) 176 x10^3/uL (140-400) Neutrophils (%) (Auto) 71 % (31-73) 66 % (31-73) Lymphocytes (%) (Auto) 18 % (24-48) 22 % (24-48) Monocytes (%) (Auto) 8 % (0-9) 8 % (0-9) Eosinophils (%) (Auto) 3 % (0-3) 4 % (0-3) Basophils (%) (Auto) 1 % (0-3) 1 % (0-3) Neutrophils # (Auto) 5.3 x10^3uL (1.8-7.7) 4.6 x10^3uL (1.8-7.7) Lymphocytes # (Auto) 1.3 x10^3/uL (1.0-4.8) 1.5 x10^3/uL (1.0-4.8) Monocytes # (Auto) 0.6 x10^3/uL (0.0-1.1) 0.5 x10^3/uL (0.0-1.1) Eosinophils # (Auto) 0.2 x10^3/uL (0.0-0.7) 0.2 x10^3/uL (0.0-0.7) Basophils # (Auto) 0.1 x10^3/uL (0.0-0.2) 0.0 x10^3/uL (0.0-0.2) Sodium Level 145 mmol/L (136-145) 145 mmol/L (136-145) Potassium Level 4.5 mmol/L (3.5-5.1) 4.6 mmol/L (3.5-5.1) Chloride Level 106 mmol/L (98-107) 107 mmol/L (98-107) Carbon Dioxide Level 32 mmol/L (21-32) 30 mmol/L (21-32) Anion Gap 7 (6-14) 8 (6-14) Blood Urea Nitrogen 31 mg/dL (7-20) 29 mg/dL (7-20) Creatinine 1.9 mg/dL (0.6-1.0) 2.1 mg/dL (0.6-1.0) Estimated GFR (Cockcroft-Gault) 25.4 22.7 Glucose Level 97 mg/dL (70-99) 85 mg/dL (70-99) Calcium Level 8.3 mg/dL (8.5-10.1) 8.2 mg/dL (8.5-10.1) Laboratory Tests Test 11/24/17 04:30 White Blood Count 6.9 x10^3/uL (4.0-11.0) Red Blood Count 2.82 x10^6/uL (3.50-5.40) Hemoglobin 8.5 g/dL (12.0-15.5) Hematocrit 25.7 % (36.0-47.0) Mean Corpuscular Volume 91 fL (79-100) Mean Corpuscular Hemoglobin 30 pg (25-35) Mean Corpuscular Hemoglobin Concent 33 g/dL (31-37) Red Cell Distribution Width 15.2 % (11.5-14.5) Platelet Count 176 x10^3/uL (140-400) Neutrophils (%) (Auto) 66 % (31-73) Lymphocytes (%) (Auto) 22 % (24-48) Monocytes (%) (Auto) 8 % (0-9) Eosinophils (%) (Auto) 4 % (0-3) Basophils (%) (Auto) 1 % (0-3) Neutrophils # (Auto) 4.6 x10^3uL (1.8-7.7) Lymphocytes # (Auto) 1.5 x10^3/uL (1.0-4.8) Monocytes # (Auto) 0.5 x10^3/uL (0.0-1.1) Eosinophils # (Auto) 0.2 x10^3/uL (0.0-0.7) Basophils # (Auto) 0.0 x10^3/uL (0.0-0.2) Sodium Level 145 mmol/L (136-145) Potassium Level 4.6 mmol/L (3.5-5.1) Chloride Level 107 mmol/L (98-107) Carbon Dioxide Level 30 mmol/L (21-32) Anion Gap 8 (6-14) Blood Urea Nitrogen 29 mg/dL (7-20) Creatinine 2.1 mg/dL (0.6-1.0) Estimated GFR (Cockcroft-Gault) 22.7 Glucose Level 85 mg/dL (70-99) Calcium Level 8.2 mg/dL (8.5-10.1) Meds Current Medications Vancomycin HCl (Vancomycin Trough Level) 1 each 1X ONCE MC ; Start 11/24/17 at 17:30; Stop 11/24/17 at 17:30; Status DC Assessment Assessment 1. Cellulitis of left leg and foot. 2. Left heel wound. 3. Right hip wound. 4. Peripheral artery disease, recent left lower extremity angiography with left tibioperoneal trunk and proximal peroneal angioplasty by Dr. Cespedes. 5. Osteoarthritis. 6. Chronic kidney disease stage 4. 7. Jqggt-nq-zcmojgf blood loss anemia. 8. History of hypertension. 9. History of myoclonic tremors secondary to acute renal failure previously. 10. Severe protein calorie malnutrition. 11. Neuropathy of lower extremities. 12. History of urinary retention. 13. Valvular insufficiency, ssld-cz-sjigscpe mitral regurgitation and tnec-vt-ydsxrutj tricuspid regurgitation. 14. Hyperlipidemia. 15. Gastroesophageal reflux disease. 16. Chronic low back pain with history of implantable medication pump for pain management. 17. Nonambulatory due to lower leg weakness and deformities. 18 Hypernatremia. 19. Physical deconditioning. PLAN: Consult Dr. Wong for wound care evaluation and management. Consult Dr. Gomez for infectious disease evaluation and management. Condition and treatment discussed with him. Consult Dr. Knapp for nephrology evaluation and management. For details, please refer the orders. Cellulitis of left lower extremity- of the left lower extremity is slowly improving. Patient is now on Zyvox, Zosyn and micafungin Fungal skin infection of feet- continue micafungin. Hypernatremia- monitor Severe diarrhea- slightly better. C. difficile negative.start Questran. I will discontinue oral Lasix. Acute renal failure with chronic kidney disease. Creatinine has increased to 2.1 BUN is 29. This is most likely due to diarrhea. Discontinue Lasix. Encouraged her to drink more fluids. Labs in AM.She does not want to go to SNF.Home when stable. Plan Plan For more details regarding further plans, please refer to the orders. CHARLOTTE VUONG MD Nov 24, 2017 10:09
[2017-11-24 11:00] VITALS: BP 121/57
--- NOTE | 2017-11-24 12:52 | PDOC ---
Infectious Disease Note Subjective Subjective Feels better , wants to go home says Leg feels better No F/c/s/n/V/SOA/rash ROS ROS no n/v/d/sob Vital Sign Vital Signs Vital Signs Date Time Temp Pulse Resp B/P (MAP) Pulse Ox O2 Delivery O2 Flow Rate FiO2 11/24/17 07:00 97.7 57 18 116/41 (66) 98 Room Air 97.7 Physical Exam PHYSICAL EXAM CONSTITUTIONAL: She is cooperative. Very alert She is in no acute distress. She looks thin. HEENT: Oral cavity, pharynx was dry. NECK: Supple. No JVD. LUNGS: Decreased at bases. HEART: S1, S2. ABDOMEN: Soft, nontender, nondistended with positive bowel sounds. EXTREMITIES: No clubbing or cyanosis. She has trace to 1+ lower extremity edema. There is no gross warmth or erythema. He has a plantar wound approximately 1.5 cm in size, appears fairly clean. Hydophera blue There is still an odor associated with it. She also has tinia bilaterally. SKIN: Otherwise, warm without signs of rash. NEUROLOGIC: She answers questions, more alert Affect was pleasant Labs Lab Laboratory Tests Test 11/24/17 04:30 White Blood Count 6.9 x10^3/uL (4.0-11.0) Red Blood Count 2.82 x10^6/uL (3.50-5.40) Hemoglobin 8.5 g/dL (12.0-15.5) Hematocrit 25.7 % (36.0-47.0) Mean Corpuscular Volume 91 fL (79-100) Mean Corpuscular Hemoglobin 30 pg (25-35) Mean Corpuscular Hemoglobin Concent 33 g/dL (31-37) Red Cell Distribution Width 15.2 % (11.5-14.5) Platelet Count 176 x10^3/uL (140-400) Neutrophils (%) (Auto) 66 % (31-73) Lymphocytes (%) (Auto) 22 % (24-48) Monocytes (%) (Auto) 8 % (0-9) Eosinophils (%) (Auto) 4 % (0-3) Basophils (%) (Auto) 1 % (0-3) Neutrophils # (Auto) 4.6 x10^3uL (1.8-7.7) Lymphocytes # (Auto) 1.5 x10^3/uL (1.0-4.8) Monocytes # (Auto) 0.5 x10^3/uL (0.0-1.1) Eosinophils # (Auto) 0.2 x10^3/uL (0.0-0.7) Basophils # (Auto) 0.0 x10^3/uL (0.0-0.2) Sodium Level 145 mmol/L (136-145) Potassium Level 4.6 mmol/L (3.5-5.1) Chloride Level 107 mmol/L (98-107) Carbon Dioxide Level 30 mmol/L (21-32) Anion Gap 8 (6-14) Blood Urea Nitrogen 29 mg/dL (7-20) Creatinine 2.1 mg/dL (0.6-1.0) Estimated GFR (Cockcroft-Gault) 22.7 Glucose Level 85 mg/dL (70-99) Calcium Level 8.2 mg/dL (8.5-10.1) Micro Microbiology 11/20/17 Blood Culture - Preliminary, Resulted NO GROWTH AFTER 3 DAYS 11/21/17 Urine Culture - Final, Complete 11/21/17 Urine Culture Result 1 (MICHAEL) - Final, Complete 11/21/17 Antimicrobic Susceptibility - Final, Complete Objective Assessment 1. Left lower extremity cellulitis. 2. Tinea of the feet. 3. Acute kidney injury. 4. Questionable urinary tract infection present on admission, but has squamous cells. History of Escherichia coli. 5. Left plantar wound. 6. Peripheral arterial disease. History of angioplasty and then hematoma. Plan Plan of Care change Zosyn/ micafungin for yeast on feet zyvox ,, to po augmentin Cont local wound care ok to d/c home RK FELDMAN MD Nov 24, 2017 12:52
[2017-11-24 15:00] VITALS: BP 120/55
--- NOTE | 2017-11-24 15:37 | PDOC ---
SUBJECTIVE ROS Stable, Denies any complaints/concerns. States going home tomorrow, No Urinary complaints OBJECTIVE Vital Signs Vital Signs Date Time Temp Pulse Resp B/P (MAP) Pulse Ox O2 Delivery O2 Flow Rate FiO2 11/24/17 11:00 97.7 61 18 121/57 (78) 98 Room Air 97.7 I & 0 Intake and Output 11/24/17 07:00 Intake Total 240 ml Output Total 700 ml Balance -460 ml Intake Oral 240 ml Output Urine Total 700 ml # Voids 4 # Bowel Movements 5 PHYSICAL EXAM Physical Exam General- NAD HEENT: Om moist NECK: Supple. No JVD. LUNGS: Decreased at bases. HEART: S1, S2. ABDOMEN: Soft, nontender, EXTREMITIES: trace LE edema SKIN: No rash NEUROLOGIC: Ax O - No Lin DIAGNOSIS/ASSESSMENT Assessment & Plan CKD stage 3 -- Cr fluctuates between 1.4-1.8 [facility]s with [facility] - ? new baseline Recent hospitalization recd IV Contrast ,? UTI E-Lytes stable, Fluid status stable Anemia - post procedure hematoma recent hospitalization recd 1 PRBC , Hgb mildly low As per primary , Aranesp as per protocol Hypernatremia - resolved LE cellulitis ID following, On Abx ? UTI-defer to primary Left heel wound- tibioperoneal trunk and peroneal artery stenosis s/p LLE angiography,L TP trunk and proximal peroneal angioplasty in oct/Nov 2017 Urinary retentionin Early nov bladder scan showed findings 550 mL ,Post Lin removal- No Urinary retention on Bladder scan Pt denies any complaints COMMENT/RELEVANT DATA Meds Current Medications Medications (Trade) Dose Ordered Sig/Beatrice Start Time Stop Time Status Last Admin Dose Admin Acetaminophen (Tylenol) 650 mg PRN Q6HRS PRN 11/20/17 16:00 Amoxicillin/ Clavulanate Potassium (Augmentin 500/ 125mg) 1 tab BID 11/24/17 21:00 Carisoprodol (Soma) 350 mg QHS 11/20/17 21:00 11/23/17 20:38 350 MG Cholestyramine Resin (Questran Light) 4 gm TID@1000,1500,2200 11/24/17 15:00 Furosemide (Lasix) 20 mg DAILY 11/21/17 09:00 11/23/17 10:37 DC 11/23/17 09:05 20 MG Gabapentin (Neurontin) 100 mg HS 11/20/17 21:00 11/23/17 20:38 100 MG Heparin Sodium (Porcine) (Heparin Sodium) 5,000 unit Q12HR 11/20/17 21:00 11/24/17 10:06 5,000 UNIT Lactobacillus Rhamnosus (Culturelle) 1 cap BID 11/20/17 21:00 11/24/17 10:03 1 CAP Levothyroxine Sodium (Synthroid) 112 mcg DAILY06 11/21/17 06:00 11/24/17 05:44 112 MCG Linezolid (Zyvox) 600 mg BID 11/21/17 12:30 11/24/17 12:54 DC 11/24/17 10:04 600 MG Micafungin Sodium 100 mg/Dextrose 100 ml @ 100 mls/hr Q24H 11/21/17 12:00 11/24/17 12:54 DC 11/23/17 13:06 100 MLS/HR Multivitamins (Thera M Plus) 1 tab DAILY 11/21/17 09:00 11/24/17 10:04 1 TAB Oxycodone HCl (Roxicodone) 15 mg PRN Q4HRS PRN 11/20/17 16:00 11/22/17 05:08 15 MG Pantoprazole Sodium (Protonix) 40 mg DAILYAC 11/21/17 07:30 11/24/17 10:03 40 MG Piperacillin Sod/ Tazobactam Sod (Zosyn Per Pharmacy) 1 each PRN DAILY PRN 11/20/17 16:00 Piperacillin Sod/ Tazobactam Sod 2.25 gm/Sodium Chloride 50 ml @ 100 mls/hr Q6HRS 11/21/17 00:00 11/24/17 12:54 DC 11/24/17 12:05 100 MLS/HR Piperacillin Sod/ Tazobactam Sod 3.375 gm/Sodium Chloride 50 ml @ 100 mls/hr ONCE ONCE 11/20/17 17:00 11/20/17 17:29 DC 11/20/17 17:39 100 MLS/HR Tamsulosin HCl (Flomax) 0.4 mg QHS 11/20/17 21:00 11/23/17 20:38 0.4 MG Vancomycin HCl (Vanco Per Pharmacy) 1 each PRN DAILY PRN 11/20/17 16:00 11/21/17 11:32 DC 11/20/17 18:37 1 EACH Vancomycin HCl (Vancomycin Trough Level) 1 each 1X ONCE 11/24/17 17:30 11/24/17 17:30 DC Vancomycin HCl 750 mg/Sodium Chloride 250 ml @ 250 mls/hr Q48H 11/22/17 18:00 11/22/17 18:00 DC Vancomycin HCl 1 gm/Sodium Chloride 250 ml @ 250 mls/hr ONCE ONCE 11/20/17 17:00 11/20/17 17:59 DC 11/20/17 17:40 250 MLS/HR Lab Laboratory Tests Test 11/24/17 04:30 White Blood Count 6.9 x10^3/uL (4.0-11.0) Red Blood Count 2.82 x10^6/uL (3.50-5.40) Hemoglobin 8.5 g/dL (12.0-15.5) Hematocrit 25.7 % (36.0-47.0) Mean Corpuscular Volume 91 fL (79-100) Mean Corpuscular Hemoglobin 30 pg (25-35) Mean Corpuscular Hemoglobin Concent 33 g/dL (31-37) Red Cell Distribution Width 15.2 % (11.5-14.5) Platelet Count 176 x10^3/uL (140-400) Neutrophils (%) (Auto) 66 % (31-73) Lymphocytes (%) (Auto) 22 % (24-48) Monocytes (%) (Auto) 8 % (0-9) Eosinophils (%) (Auto) 4 % (0-3) Basophils (%) (Auto) 1 % (0-3) Neutrophils # (Auto) 4.6 x10^3uL (1.8-7.7) Lymphocytes # (Auto) 1.5 x10^3/uL (1.0-4.8) Monocytes # (Auto) 0.5 x10^3/uL (0.0-1.1) Eosinophils # (Auto) 0.2 x10^3/uL (0.0-0.7) Basophils # (Auto) 0.0 x10^3/uL (0.0-0.2) Sodium Level 145 mmol/L (136-145) Potassium Level 4.6 mmol/L (3.5-5.1) Chloride Level 107 mmol/L (98-107) Carbon Dioxide Level 30 mmol/L (21-32) Anion Gap 8 (6-14) Blood Urea Nitrogen 29 mg/dL (7-20) Creatinine 2.1 mg/dL (0.6-1.0) Estimated GFR (Cockcroft-Gault) 22.7 Glucose Level 85 mg/dL (70-99) Calcium Level 8.2 mg/dL (8.5-10.1) Results All relevant outside records, renal labs, imaging studies, telemetry/EKG's were reviewed. JENNIE SAUCEDO MD Nov 24, 2017 15:37
[2017-11-24] MEDS: CHOLESTYRAMINE/ASPARTAME 4 GM PACKET PO SCH ×2 (16:52→21:19)
[2017-11-24 19:00] VITALS: BP 128/45
[2017-11-24] MEDS: GABAPENTIN 100 MG CAPSULE. PO SCH (21:19)
[2017-11-24] MEDS: AMOXICILLIN/K CLAV 500/125MG TABLET. PO SCH (21:19)
[2017-11-24] MEDS: TAMSULOSIN 0.4 MG CAP.ER.24H. PO SCH (21:19)
[2017-11-24] MEDS: CARISOPRODOL 350 MG TABLET PO SCH (21:21)
[2017-11-24 23:01] VITALS: BP 123/60
[2017-11-25 03:01] VITALS: BP 113/44
[2017-11-25 05:12] LABS: CALCIUM 8.5 mg/dL (8.5-10.1); CREATININE 1.9 mg/dL (0.6-1.0); GFR 25.4; POTASSIUM 4.4 mmol/L (3.5-5.1)
[2017-11-25] MEDS: LEVOTHYROXINE 112 MCG TABLET PO SCH (06:09)
[2017-11-25 07:59] VITALS: BP 114/42
[2017-11-25] MEDS: LACTOBACILLUS RHAMNOSUS GG 1 CAPSULE. PO SCH (09:12)
[2017-11-25] MEDS: PANTOPRAZOLE 40 MG TABLET.DR. PO SCH (09:12)
[2017-11-25] MEDS: AMOXICILLIN/K CLAV 500/125MG TABLET. PO SCH (09:12)
[2017-11-25] MEDS: MULTIVITAMIN with MINERAL TABLET. PO SCH (09:12)
[2017-11-25] MEDS: HEPARIN for SUB-Q USE 5,000 UNIT/ML VIAL. SQ SCH (09:16)
[2017-11-25] MEDS: CHOLESTYRAMINE/ASPARTAME 4 GM PACKET PO SCH (09:16)
--- NOTE | 2017-11-25 09:44 | DISCH ---
DISCHARGE WITH HOME HEALTH DISCHARGE INFORMATION: Condition on Discharge: Stable HOME HEALTH: Face to Face: I certify this patient is under my care and that I, or a nurse practitioner or physician's office support assistant working with me, had a face to face encounter that meets the physician face to face encounter requirements with this patient on November 25, 2017. Medical Complications: Other (wounds) POST DISCHARGE ORDERS: Activity Instructions for Disc: Activity as tolerated (uses wheelchair) Weight Bearing Status after Di: Non weight bearing DIET AFTER DISCHARGE: Regular Wound/Incision Care: Change dressing CHECKS AFTER DISCHARGE: Checks after discharge: Check blood press - daily FOLLOW-UP: Follow up with: Dr. CHARLOTTE Vuong in 5 days Follow Up With: wound care center TREATMENT/EQUIPMENT ORDERS: Adaptive Equipment Issued: Wheelchair CERTIFICATION STATEMENT: Certification Statement: Certification Statement: Based on the above finding, I certify that this patient is confined to the home and needs intermittent longterm care, physical therapy and/or speech therapy, or continues to need occupational therapy.~ This patient is under my care, and I have initiated the establishment of the plan of care.~ This patient will be followed by myself or a community physician who will periodically review the plan of care. Home Meds Active Scripts Acetaminophen (TYLENOL) 325 Mg Tablet, 650 MG PO PRN Q6HRS PRN for MILD PAIN / TEMP, #360 TAB Prov:TELLO BRITTON [employer]TR [employer] 03/13/17 Gabapentin (NEURONTIN) 100 Mg Capsule, 100 MG PO HS, #30 Prov:TELLO BRITTON [employer] OWNER [employer] 09/30/13 Reported Medications Furosemide (FUROSEMIDE) 20 Mg Tablet, 20 MG PO DAILY 11/20/17 Oxycodone Hcl (OXYCODONE HCL) 15 Mg Tablet, 15 MG PO PRN for PAIN, TAB 0 Refills 07/05/17 Multivit-Min/FA/Lycopen/Lutein (Adults 50+ Multivitamin Tablet) 1 Each Tablet, 1 EACH PO DAILY, TAB 03/09/17 Carisoprodol (SOMA) 350 Mg Tablet, 1 TAB PO QHS, #30 TAB 12/12/13 Tamsulosin Hcl (FLOMAX) 0.4 Mg Cap.er.24h, 0.4 MG PO QHS, TAB 08/12/13 Omeprazole (OMEPRAZOLE) 40 Mg Capsule.dr, 40 MG PO BIDAC, CAP 08/12/13 Levothyroxine Sodium (SYNTHROID) 112 Mcg Tablet, 112 MCG PO DAILY06 for THYROID SUPPLEMENT, #30 TAB 0 Refills 08/12/13 CHARLTOTE VUONG MD Nov 25, 2017 09:44
[2017-11-25] MEDS ORDERED: LACT1CAP19 PO (09:46)
[2017-11-25] MEDS ORDERED: AMOX1TAB10 PO (09:46)
[2017-11-25] MEDS ORDERED: CHOL4POW3 PO (10:41)
[2017-11-25 10:49] VITALS: BP 129/50
--- NOTE | 2017-11-25 10:50 | PDOC3 ---
IM DISCHARGE SUMMARY Date of Admission Date of Admission Date of Admission: Nov 20, 2017 at 14:12 Date of Discharge Date of Discharge November 25, 2017 Primary Diagnosis Primary Diagnosis 1. Cellulitis of left leg and foot. 2. Left heel wound. 3. Right hip wound. 4. Peripheral artery disease, recent left lower extremity angiography with left tibioperoneal trunk and proximal peroneal angioplasty by Dr. Cespedes. 5. Osteoarthritis. 6. Chronic kidney disease stage 4. 7. Wfygr-cj-fqvrghy blood loss anemia. 8. History of hypertension. 9. History of myoclonic tremors secondary to acute renal failure previously. 10. Severe protein calorie malnutrition. 11. Neuropathy of lower extremities. 12. History of urinary retention. 13. Valvular insufficiency, xhvl-sl-jijaioly mitral regurgitation and bqro-ci-chashqio tricuspid regurgitation. 14. Hyperlipidemia. 15. Gastroesophageal reflux disease. 16. Chronic low back pain with history of implantable medication pump for pain management. 17. Nonambulatory due to lower leg weakness and deformities. 18 Hypernatremia. 19. Physical deconditioning. 15. Acute renal failure with chronic kidney disease stage IV 16. Diarrhea- C. difficile negative. 17. Hypernatremia Consults Consults Mayra Knapp MD, Dr. Mcduffie, Dr. Wong Labs Labs Laboratory Tests Test 11/23/17 07:30 11/23/17 07:43 11/24/17 04:30 11/25/17 04:25 Clostridium difficile Toxin (PCR) Negative (Negative) White Blood Count 7.5 x10^3/uL (4.0-11.0) 6.9 x10^3/uL (4.0-11.0) Red Blood Count 2.97 x10^6/uL (3.50-5.40) 2.82 x10^6/uL (3.50-5.40) Hemoglobin 8.8 g/dL (12.0-15.5) 8.5 g/dL (12.0-15.5) Hematocrit 27.0 % (36.0-47.0) 25.7 % (36.0-47.0) Mean Corpuscular Volume 91 fL (79-100) 91 fL (79-100) Mean Corpuscular Hemoglobin 30 pg (25-35) 30 pg (25-35) Mean Corpuscular Hemoglobin Concent 33 g/dL (31-37) 33 g/dL (31-37) Red Cell Distribution Width 15.4 % (11.5-14.5) 15.2 % (11.5-14.5) Platelet Count 177 x10^3/uL (140-400) 176 x10^3/uL (140-400) Neutrophils (%) (Auto) 71 % (31-73) 66 % (31-73) Lymphocytes (%) (Auto) 18 % (24-48) 22 % (24-48) Monocytes (%) (Auto) 8 % (0-9) 8 % (0-9) Eosinophils (%) (Auto) 3 % (0-3) 4 % (0-3) Basophils (%) (Auto) 1 % (0-3) 1 % (0-3) Neutrophils # (Auto) 5.3 x10^3uL (1.8-7.7) 4.6 x10^3uL (1.8-7.7) Lymphocytes # (Auto) 1.3 x10^3/uL (1.0-4.8) 1.5 x10^3/uL (1.0-4.8) Monocytes # (Auto) 0.6 x10^3/uL (0.0-1.1) 0.5 x10^3/uL (0.0-1.1) Eosinophils # (Auto) 0.2 x10^3/uL (0.0-0.7) 0.2 x10^3/uL (0.0-0.7) Basophils # (Auto) 0.1 x10^3/uL (0.0-0.2) 0.0 x10^3/uL (0.0-0.2) Sodium Level 145 mmol/L (136-145) 145 mmol/L (136-145) 143 mmol/L (136-145) Potassium Level 4.5 mmol/L (3.5-5.1) 4.6 mmol/L (3.5-5.1) 4.4 mmol/L (3.5-5.1) Chloride Level 106 mmol/L (98-107) 107 mmol/L (98-107) 107 mmol/L (98-107) Carbon Dioxide Level 32 mmol/L (21-32) 30 mmol/L (21-32) 29 mmol/L (21-32) Anion Gap 7 (6-14) 8 (6-14) 7 (6-14) Blood Urea Nitrogen 31 mg/dL (7-20) 29 mg/dL (7-20) 26 mg/dL (7-20) Creatinine 1.9 mg/dL (0.6-1.0) 2.1 mg/dL (0.6-1.0) 1.9 mg/dL (0.6-1.0) Estimated GFR (Cockcroft-Gault) 25.4 22.7 25.4 Glucose Level 97 mg/dL (70-99) 85 mg/dL (70-99) 96 mg/dL (70-99) Calcium Level 8.3 mg/dL (8.5-10.1) 8.2 mg/dL (8.5-10.1) 8.5 mg/dL (8.5-10.1) Brief hospital course Brief hospital course is an 82-year-old female who had the increased swelling and redness of the left leg and foot with the foul-smelling odor coming from her left foot wound. Patient also has peripheral artery disease and recently had angioplasty in the left lower extremity followed by left groin hematoma about 3 weeks ago. Patient was admitted to the hospital for further evaluation and management. For more details and the past medical history family history social history medications and other details please refer to the admitting note. Consult Dr. Wong for wound care evaluation and management. Consult for infectious disease evaluation and management. Condition and treatment discussed with him. Consult Dr. Knapp for nephrology evaluation and management. Cellulitis of left lower extremity- of the left lower extremity is slowly improving. Patient is now on Zyvox, Zosyn and micafungin. Patient responded well to IV antibiotics and subsequently she was changed to oral Augmentin and IV antibiotics were discontinued. I'll continue oral Augmentin 500/125 one tablet twice a day with food for 5 days. Diarrhea- and had severe diarrhea during the stay in the hospital. Lasix was stopped. Patient was given Questran after it was noted that C. difficile PCR was negative. Patient was also started on probiotics. She was also given Imodium as needed. Multiple wounds- weber was treated for right hip wound and the left heel wound during the stay in the hospital. Consultation was obtained with the wound care center. Patient will continue to follow with the wound care center as outpatient every Monday. Hypernatremia resolved. Acute renal failure with chronic kidney disease stage IV- is May have been vasomotor nephropathy due to diarrhea. Lasix was stopped. Patient was also seen by Dr. Knapp for nephrology evaluation and management. As patient's condition has continued to improve patient will be discharged home with home health services. Patient declined to go to a group home for further treatment. Her long-term as well as short-term prognosis is poor due to multiple medical problems. Condition at the time of discharge is much better. Medications Medications reviewed and reconciled for discharge. Allergy Allergies Coded Allergies Type Severity Reaction Last Updated Verified No Known Drug Allergies 07/05/17 No Follow up in 5 days. DISPOSITION: Home health services Comments Discharge Management - 35 minutes. For other details please refer to discharge instructions CHARLOTTE VUONG MD Nov 25, 2017 10:50
== END 2017-11-25 14:09 | disposition home health service (06) | DRG 682 ==
LOC: 5 NORTH 14:12
PROVIDERS: ADMIT Internal Medicine; ATTEND Internal Medicine
DX: N17.0 Acute kidney failure with tubular necrosis (principal); L89.154 Pressure ulcer of sacral region, stage 4; E43 Unspecified severe protein-calorie malnutrition; L03.116 Cellulitis of left lower limb; D62 Acute posthemorrhagic anemia; E87.0 Hyperosmolality and hypernatremia; Z68.1 Body mass index [BMI] 19.9 or less, adult; B35.3 Tinea pedis; R19.7 Diarrhea, unspecified; E03.9 Hypothyroidism, unspecified; E11.22 Type 2 diabetes mellitus with diabetic chronic kidney disease; E11.42 Type 2 diabetes mellitus with diabetic polyneuropathy; E11.51 Type 2 diabetes mellitus with diabetic peripheral angiopathy without gangrene; E11.621 Type 2 diabetes mellitus with foot ulcer; E78.5 Hyperlipidemia, unspecified; G89.29 Other chronic pain; I08.1 Rheumatic disorders of both mitral and tricuspid valves; I12.9 Hypertensive chronic kidney disease with stage 1 through stage 4 chronic kidney disease, or unspecified chronic kidney disease; Z96.652 Presence of left artificial knee joint; K59.00 Constipation, unspecified; K21.9 Gastro-esophageal reflux disease without esophagitis; M54.5 Low back pain; L89.899 Pressure ulcer of other site, unspecified stage; L97.529 Non-pressure chronic ulcer of other part of left foot with unspecified severity; M06.9 Rheumatoid arthritis, unspecified; M19.90 Unspecified osteoarthritis, unspecified site; N18.4 Chronic kidney disease, stage 4 (severe); Z82.49 Family history of ischemic heart disease and other diseases of the circulatory system; Z87.440 Personal history of urinary (tract) infections; Z90.710 Acquired absence of both cervix and uterus; Z86.010 Personal history of colon polyps; Z79.4 Long term (current) use of insulin
CPT/HCPCS: 36415; 71045; 80048; 80053; 81001; 83735; 85025; 85651; 87040; 87086; 87186; 87324; 93005; J1644; J2248; J2543; J3370; J7050; 97530; 97535; J7030

== ENCOUNTER → 2017-12-06 | Outpatient (CLI) | payer MEDICARE ==
[2017-11-25 10:49] VITALS: BP 129/50
[~2017-12-06] MED LIST changes: +AMOX1TAB10 PO; +CHOL4POW3 PO; +FURO20TA3 PO
== END | disposition home or self-care (01) ==
LOC: PMGWOUND 11:33
PROVIDERS: ATTEND Preventive Medicine Undersea and Hyperbaric Medicine
DX: E11.622 Type 2 diabetes mellitus with other skin ulcer (principal); L89.154 Pressure ulcer of sacral region, stage 4; L89.893 Pressure ulcer of other site, stage 3; E11.36 Type 2 diabetes mellitus with diabetic cataract; E11.21 Type 2 diabetes mellitus with diabetic nephropathy; E11.00 Type 2 diabetes mellitus with hyperosmolarity without nonketotic hyperglycemic-hyperosmolar coma (NKHHC); E11.42 Type 2 diabetes mellitus with diabetic polyneuropathy; E11.51 Type 2 diabetes mellitus with diabetic peripheral angiopathy without gangrene; I13.2 Hypertensive heart and chronic kidney disease with heart failure and with stage 5 chronic kidney disease, or end stage renal disease; E11.22 Type 2 diabetes mellitus with diabetic chronic kidney disease; N18.5 Chronic kidney disease, stage 5; I50.9 Heart failure, unspecified; E78.5 Hyperlipidemia, unspecified; L84 Corns and callosities; G89.29 Other chronic pain; M06.9 Rheumatoid arthritis, unspecified; K21.9 Gastro-esophageal reflux disease without esophagitis; M19.90 Unspecified osteoarthritis, unspecified site; E03.9 Hypothyroidism, unspecified; E78.00 Pure hypercholesterolemia, unspecified; Z79.4 Long term (current) use of insulin; Z99.2 Dependence on renal dialysis; Z87.891 Personal history of nicotine dependence; Z90.710 Acquired absence of both cervix and uterus
CPT/HCPCS: 11042; 97597

== ENCOUNTER → 2017-12-13 | Outpatient (CLI) | payer MEDICARE ==
[2017-11-25 10:49] VITALS: BP 129/50
== END | disposition home or self-care (01) ==
LOC: PMGWOUND 09:53
PROVIDERS: ATTEND Preventive Medicine Undersea and Hyperbaric Medicine
DX: E11.622 Type 2 diabetes mellitus with other skin ulcer (principal); L97.522 Non-pressure chronic ulcer of other part of left foot with fat layer exposed; L89.893 Pressure ulcer of other site, stage 3; L98.491 Non-pressure chronic ulcer of skin of other sites limited to breakdown of skin; L89.154 Pressure ulcer of sacral region, stage 4; E11.00 Type 2 diabetes mellitus with hyperosmolarity without nonketotic hyperglycemic-hyperosmolar coma (NKHHC); E11.36 Type 2 diabetes mellitus with diabetic cataract; E11.21 Type 2 diabetes mellitus with diabetic nephropathy; E11.42 Type 2 diabetes mellitus with diabetic polyneuropathy; E11.51 Type 2 diabetes mellitus with diabetic peripheral angiopathy without gangrene; E11.22 Type 2 diabetes mellitus with diabetic chronic kidney disease; I13.2 Hypertensive heart and chronic kidney disease with heart failure and with stage 5 chronic kidney disease, or end stage renal disease; N18.5 Chronic kidney disease, stage 5; I50.9 Heart failure, unspecified; L84 Corns and callosities; G89.29 Other chronic pain; E78.5 Hyperlipidemia, unspecified; M19.90 Unspecified osteoarthritis, unspecified site; E03.9 Hypothyroidism, unspecified; K21.9 Gastro-esophageal reflux disease without esophagitis; E78.00 Pure hypercholesterolemia, unspecified; M06.9 Rheumatoid arthritis, unspecified; Z99.2 Dependence on renal dialysis; Z79.4 Long term (current) use of insulin; Z90.49 Acquired absence of other specified parts of digestive tract; Z87.891 Personal history of nicotine dependence; Z90.710 Acquired absence of both cervix and uterus
CPT/HCPCS: 11042

== ENCOUNTER → 2017-12-27 | Outpatient (CLI) | payer MEDICARE ==
[~2017-12-27] MED LIST changes: -MULT-683 PO; +MULT-733 PO
== END | disposition home or self-care (01) ==
LOC: PMGWOUND 11:30
PROVIDERS: ATTEND Preventive Medicine Undersea and Hyperbaric Medicine
DX: E11.622 Type 2 diabetes mellitus with other skin ulcer (principal); L89.154 Pressure ulcer of sacral region, stage 4; L98.491 Non-pressure chronic ulcer of skin of other sites limited to breakdown of skin; E11.00 Type 2 diabetes mellitus with hyperosmolarity without nonketotic hyperglycemic-hyperosmolar coma (NKHHC); E11.36 Type 2 diabetes mellitus with diabetic cataract; E11.21 Type 2 diabetes mellitus with diabetic nephropathy; E11.42 Type 2 diabetes mellitus with diabetic polyneuropathy; E11.51 Type 2 diabetes mellitus with diabetic peripheral angiopathy without gangrene; I13.2 Hypertensive heart and chronic kidney disease with heart failure and with stage 5 chronic kidney disease, or end stage renal disease; E11.22 Type 2 diabetes mellitus with diabetic chronic kidney disease; N18.5 Chronic kidney disease, stage 5; I50.9 Heart failure, unspecified; L84 Corns and callosities; E78.5 Hyperlipidemia, unspecified; E03.9 Hypothyroidism, unspecified; G89.29 Other chronic pain; M06.9 Rheumatoid arthritis, unspecified; E78.00 Pure hypercholesterolemia, unspecified; K21.9 Gastro-esophageal reflux disease without esophagitis; M19.90 Unspecified osteoarthritis, unspecified site; Z99.2 Dependence on renal dialysis; Z79.4 Long term (current) use of insulin; Z87.891 Personal history of nicotine dependence; Z90.710 Acquired absence of both cervix and uterus; Z90.49 Acquired absence of other specified parts of digestive tract
CPT/HCPCS: 97597

== ENCOUNTER → 2018-01-10 | Outpatient (CLI) | payer MEDICARE ==
[~2018-01-10] MED LIST changes: -GABA-586 PO; +GABA300C18 PO
== END | disposition home or self-care (01) ==
LOC: PMGWOUND 11:20
PROVIDERS: ATTEND Preventive Medicine Undersea and Hyperbaric Medicine
DX: E11.622 Type 2 diabetes mellitus with other skin ulcer (principal); L98.492 Non-pressure chronic ulcer of skin of other sites with fat layer exposed; L89.154 Pressure ulcer of sacral region, stage 4; E11.00 Type 2 diabetes mellitus with hyperosmolarity without nonketotic hyperglycemic-hyperosmolar coma (NKHHC); E11.36 Type 2 diabetes mellitus with diabetic cataract; E11.42 Type 2 diabetes mellitus with diabetic polyneuropathy; E11.51 Type 2 diabetes mellitus with diabetic peripheral angiopathy without gangrene; I13.2 Hypertensive heart and chronic kidney disease with heart failure and with stage 5 chronic kidney disease, or end stage renal disease; E11.22 Type 2 diabetes mellitus with diabetic chronic kidney disease; N18.5 Chronic kidney disease, stage 5; I50.9 Heart failure, unspecified; L84 Corns and callosities; G89.29 Other chronic pain; E78.5 Hyperlipidemia, unspecified; K21.9 Gastro-esophageal reflux disease without esophagitis; M19.90 Unspecified osteoarthritis, unspecified site; E03.9 Hypothyroidism, unspecified; E78.00 Pure hypercholesterolemia, unspecified; M06.9 Rheumatoid arthritis, unspecified; Z99.2 Dependence on renal dialysis; Z79.4 Long term (current) use of insulin; Z87.891 Personal history of nicotine dependence; Z90.710 Acquired absence of both cervix and uterus; Z90.49 Acquired absence of other specified parts of digestive tract
CPT/HCPCS: 11042

== ENCOUNTER → 2018-01-24 | Outpatient (CLI) | payer MEDICARE | END | disposition home or self-care (01) | LOC: PMGWOUND 11:47 | PROVIDERS: ATTEND Preventive Medicine Undersea and Hyperbaric Medicine | DX: E11.622 Type 2 diabetes mellitus with other skin ulcer (principal); L89.154 Pressure ulcer of sacral region, stage 4; L98.491 Non-pressure chronic ulcer of skin of other sites limited to breakdown of skin; E11.00 Type 2 diabetes mellitus with hyperosmolarity without nonketotic hyperglycemic-hyperosmolar coma (NKHHC); E11.36 Type 2 diabetes mellitus with diabetic cataract; E11.42 Type 2 diabetes mellitus with diabetic polyneuropathy; E11.51 Type 2 diabetes mellitus with diabetic peripheral angiopathy without gangrene; I13.11 Hypertensive heart and chronic kidney disease without heart failure, with stage 5 chronic kidney disease, or end stage renal disease; E11.22 Type 2 diabetes mellitus with diabetic chronic kidney disease; N18.5 Chronic kidney disease, stage 5; L84 Corns and callosities; G89.29 Other chronic pain; E78.5 Hyperlipidemia, unspecified; E03.9 Hypothyroidism, unspecified; M06.9 Rheumatoid arthritis, unspecified; E78.00 Pure hypercholesterolemia, unspecified; K21.9 Gastro-esophageal reflux disease without esophagitis; Z79.4 Long term (current) use of insulin; Z99.2 Dependence on renal dialysis; Z87.891 Personal history of nicotine dependence; Z90.710 Acquired absence of both cervix and uterus; Z90.49 Acquired absence of other specified parts of digestive tract | CPT/HCPCS: 97597 ==

== ENCOUNTER → 2018-02-07 | Outpatient (CLI) | payer MEDICARE | END | disposition home or self-care (01) | LOC: PMGWOUND 11:23 | PROVIDERS: ATTEND Preventive Medicine Undersea and Hyperbaric Medicine | DX: E11.622 Type 2 diabetes mellitus with other skin ulcer (principal); L89.154 Pressure ulcer of sacral region, stage 4; L89.322 Pressure ulcer of left buttock, stage 2; L98.411 Non-pressure chronic ulcer of buttock limited to breakdown of skin; L98.491 Non-pressure chronic ulcer of skin of other sites limited to breakdown of skin; E11.00 Type 2 diabetes mellitus with hyperosmolarity without nonketotic hyperglycemic-hyperosmolar coma (NKHHC); E11.21 Type 2 diabetes mellitus with diabetic nephropathy; I13.2 Hypertensive heart and chronic kidney disease with heart failure and with stage 5 chronic kidney disease, or end stage renal disease; E11.22 Type 2 diabetes mellitus with diabetic chronic kidney disease; N18.5 Chronic kidney disease, stage 5; I50.9 Heart failure, unspecified; L84 Corns and callosities; E78.5 Hyperlipidemia, unspecified; E03.9 Hypothyroidism, unspecified; G89.29 Other chronic pain; E78.00 Pure hypercholesterolemia, unspecified; M06.9 Rheumatoid arthritis, unspecified; K21.9 Gastro-esophageal reflux disease without esophagitis; I25.10 Atherosclerotic heart disease of native coronary artery without angina pectoris; M19.90 Unspecified osteoarthritis, unspecified site; Z79.4 Long term (current) use of insulin; Z99.2 Dependence on renal dialysis; Z87.891 Personal history of nicotine dependence; Z90.710 Acquired absence of both cervix and uterus; Z90.49 Acquired absence of other specified parts of digestive tract | CPT/HCPCS: 97597 ==

== ENCOUNTER → 2018-02-21 | Outpatient (CLI) | payer MEDICARE | END | disposition home or self-care (01) | LOC: PMGWOUND 10:58 | PROVIDERS: ATTEND Preventive Medicine Undersea and Hyperbaric Medicine | DX: E11.622 Type 2 diabetes mellitus with other skin ulcer (principal); L89.154 Pressure ulcer of sacral region, stage 4; E11.00 Type 2 diabetes mellitus with hyperosmolarity without nonketotic hyperglycemic-hyperosmolar coma (NKHHC); E11.21 Type 2 diabetes mellitus with diabetic nephropathy; E11.36 Type 2 diabetes mellitus with diabetic cataract; E11.42 Type 2 diabetes mellitus with diabetic polyneuropathy; E11.51 Type 2 diabetes mellitus with diabetic peripheral angiopathy without gangrene; I13.2 Hypertensive heart and chronic kidney disease with heart failure and with stage 5 chronic kidney disease, or end stage renal disease; E11.22 Type 2 diabetes mellitus with diabetic chronic kidney disease; N18.5 Chronic kidney disease, stage 5; I50.9 Heart failure, unspecified; L84 Corns and callosities; G89.29 Other chronic pain; E78.5 Hyperlipidemia, unspecified; E03.9 Hypothyroidism, unspecified; M06.9 Rheumatoid arthritis, unspecified; E78.00 Pure hypercholesterolemia, unspecified; K21.9 Gastro-esophageal reflux disease without esophagitis; M19.90 Unspecified osteoarthritis, unspecified site; I25.10 Atherosclerotic heart disease of native coronary artery without angina pectoris; Z99.2 Dependence on renal dialysis; Z79.4 Long term (current) use of insulin; Z87.891 Personal history of nicotine dependence; Z90.710 Acquired absence of both cervix and uterus; Z90.49 Acquired absence of other specified parts of digestive tract | CPT/HCPCS: 11042 ==

== ENCOUNTER → 2018-03-14 | Outpatient (CLI) | payer MEDICARE ==
[~2018-03-14] MED LIST changes: +AMLO5TAB10 PO; -AMLO5TAB7 PO
== END | disposition home or self-care (01) ==
LOC: PMGWOUND 11:14
PROVIDERS: ATTEND Preventive Medicine Undersea and Hyperbaric Medicine
DX: E11.622 Type 2 diabetes mellitus with other skin ulcer (principal); L89.154 Pressure ulcer of sacral region, stage 4; L89.893 Pressure ulcer of other site, stage 3; L98.491 Non-pressure chronic ulcer of skin of other sites limited to breakdown of skin; E11.00 Type 2 diabetes mellitus with hyperosmolarity without nonketotic hyperglycemic-hyperosmolar coma (NKHHC); E11.36 Type 2 diabetes mellitus with diabetic cataract; E11.21 Type 2 diabetes mellitus with diabetic nephropathy; E11.42 Type 2 diabetes mellitus with diabetic polyneuropathy; E11.51 Type 2 diabetes mellitus with diabetic peripheral angiopathy without gangrene; I13.2 Hypertensive heart and chronic kidney disease with heart failure and with stage 5 chronic kidney disease, or end stage renal disease; E11.22 Type 2 diabetes mellitus with diabetic chronic kidney disease; N18.5 Chronic kidney disease, stage 5; I50.9 Heart failure, unspecified; L84 Corns and callosities; E78.5 Hyperlipidemia, unspecified; E03.9 Hypothyroidism, unspecified; G89.29 Other chronic pain; E78.00 Pure hypercholesterolemia, unspecified; M06.9 Rheumatoid arthritis, unspecified; I25.10 Atherosclerotic heart disease of native coronary artery without angina pectoris; K21.9 Gastro-esophageal reflux disease without esophagitis; Z79.4 Long term (current) use of insulin; Z87.891 Personal history of nicotine dependence; Z90.710 Acquired absence of both cervix and uterus; Z90.49 Acquired absence of other specified parts of digestive tract; Z99.2 Dependence on renal dialysis
CPT/HCPCS: 99213

== ENCOUNTER → 2018-04-11 | Outpatient (CLI) | payer MEDICARE ==
[~2018-04-11] MED LIST changes: +MULT-728 PO; -MULT-733 PO
== END | disposition home or self-care (01) ==
LOC: PMGWOUND 10:56
PROVIDERS: ATTEND Preventive Medicine Undersea and Hyperbaric Medicine
DX: E11.622 Type 2 diabetes mellitus with other skin ulcer (principal); L89.154 Pressure ulcer of sacral region, stage 4; L98.491 Non-pressure chronic ulcer of skin of other sites limited to breakdown of skin; E11.00 Type 2 diabetes mellitus with hyperosmolarity without nonketotic hyperglycemic-hyperosmolar coma (NKHHC); E11.36 Type 2 diabetes mellitus with diabetic cataract; E11.21 Type 2 diabetes mellitus with diabetic nephropathy; E11.42 Type 2 diabetes mellitus with diabetic polyneuropathy; E11.51 Type 2 diabetes mellitus with diabetic peripheral angiopathy without gangrene; I13.2 Hypertensive heart and chronic kidney disease with heart failure and with stage 5 chronic kidney disease, or end stage renal disease; E11.22 Type 2 diabetes mellitus with diabetic chronic kidney disease; N18.5 Chronic kidney disease, stage 5; I50.9 Heart failure, unspecified; L84 Corns and callosities; G89.29 Other chronic pain; E03.9 Hypothyroidism, unspecified; E78.5 Hyperlipidemia, unspecified; M19.90 Unspecified osteoarthritis, unspecified site; E78.00 Pure hypercholesterolemia, unspecified; K21.9 Gastro-esophageal reflux disease without esophagitis; M06.9 Rheumatoid arthritis, unspecified; I25.10 Atherosclerotic heart disease of native coronary artery without angina pectoris; Z99.2 Dependence on renal dialysis; Z79.4 Long term (current) use of insulin; Z87.891 Personal history of nicotine dependence; Z90.710 Acquired absence of both cervix and uterus; Z90.49 Acquired absence of other specified parts of digestive tract
CPT/HCPCS: 99213; G0463

== ENCOUNTER → 2018-04-25 | Outpatient (CLI) | payer MEDICARE | END | disposition home or self-care (01) | LOC: PMGWOUND 11:02 | PROVIDERS: ATTEND Preventive Medicine Undersea and Hyperbaric Medicine | DX: E11.622 Type 2 diabetes mellitus with other skin ulcer (principal); L89.302 Pressure ulcer of unspecified buttock, stage 2; E11.00 Type 2 diabetes mellitus with hyperosmolarity without nonketotic hyperglycemic-hyperosmolar coma (NKHHC); E11.36 Type 2 diabetes mellitus with diabetic cataract; E11.21 Type 2 diabetes mellitus with diabetic nephropathy; E11.42 Type 2 diabetes mellitus with diabetic polyneuropathy; E11.51 Type 2 diabetes mellitus with diabetic peripheral angiopathy without gangrene; L84 Corns and callosities; G89.29 Other chronic pain; E78.5 Hyperlipidemia, unspecified; E03.9 Hypothyroidism, unspecified; I10 Essential (primary) hypertension; M06.9 Rheumatoid arthritis, unspecified; E78.00 Pure hypercholesterolemia, unspecified; M19.90 Unspecified osteoarthritis, unspecified site; K21.9 Gastro-esophageal reflux disease without esophagitis; I25.10 Atherosclerotic heart disease of native coronary artery without angina pectoris; Z90.49 Acquired absence of other specified parts of digestive tract; Z90.710 Acquired absence of both cervix and uterus; Z79.4 Long term (current) use of insulin; Z87.891 Personal history of nicotine dependence | CPT/HCPCS: 99213; G0463 ==

== ENCOUNTER 2018-10-06 11:43 | Emergency (ER) | payer MEDICARE ==
[~2018-10-06] VITALS: Ht 152.4 cm; Wt 46.3 kg
[~2018-10-06 11:43] MED LIST changes: +FERR325T14 PO; +LOPE2CAP PO
--- NOTE | 2018-10-06 12:07 | PHYS DOC ---
Past Medical History Past Medical History: Anemia, Arthritis, Arrhythmia, Diabetes-Type II, GERD, High Cholesterol, Hypothyroid, Renal Disease, Other Additional Past Medical Histor: OSTEOARTHRITIS, HEMORRHOIDS, CHRONIC PAIN, POLYPS, TUBULAR ADENOMA Past Surgical History: Appendectomy, Cholecystectomy, Hysterectomy, Knee Replacement, Tonsillectomy, Other Additional Past Surgical Histo: POLYPECTOMY, HEMORRHOIDECTOMY, BILATERAL FOOT REPAIR Alcohol Use: None Drug Use: None Adult General Chief Complaint Chief Complaint: MECHANICAL FALL HPI HPI Patient is a 82 year old female] who presents with [left leg pain, hip pain. Patient reportedly is always in a wheelchair, does not ambulate, and while going down a ramp yesterday, she had fallen out, landing on her left hip. States she never able to straighten out her leg, unchanged today. Does complain of pain to that left leg and inability to move which is unchanged from normal, but discomfort is worsened] Review of Systems Review of Systems Constitutional: Denies fever or chills [] Eyes: Denies change in visual acuity, redness, or eye pain [] HENT: Denies nasal congestion or sore throat [] Respiratory: Denies cough or shortness of breath [] Cardiovascular: No additional information not addressed in HPI [] GI: Denies abdominal pain, nausea, vomiting, bloody stools or diarrhea [] : Denies dysuria or hematuria [] Musculoskeletal: Denies back pain or joint pain complains of left leg pain [] Integument: Denies rash or skin lesions [] Neurologic: Denies headache, focal weakness or sensory changes [] Endocrine: Denies polyuria or polydipsia [] All other systems were reviewed and found to be within normal limits, except as documented in this note. Current Medications Current Medications Current Medications Medications (Trade) Dose Ordered Sig/Beatrice Start Time Stop Time Status Last Admin Dose Admin Fentanyl Citrate (Fentanyl 2ml Vial) 50 mcg 1X ONCE 10/06/18 16:30 10/06/18 16:31 DC 10/06/18 16:20 50 MCG Morphine Sulfate (Morphine Sulfate) 2 mg PRN Q1HR PRN 10/06/18 12:15 10/06/18 16:35 DC 10/06/18 12:12 2 MG Ondansetron HCl (Zofran) 4 mg 1X ONCE 10/06/18 13:00 10/06/18 13:01 DC 10/06/18 12:51 4 MG Allergies Allergies Allergies Coded Allergies Type Severity Reaction Last Updated Verified No Known Drug Allergies 07/05/17 No Physical Exam Physical Exam Constitutional: Well developed, well nourished, no acute distress, non-toxic appearance. [] HENT: Normocephalic, atraumatic, bilateral external ears normal, oropharynx moist, no oral exudates, nose normal. [] Eyes: PERRLA, EOMI, conjunctiva normal, no discharge. [] Neck: Normal range of motion, no tenderness, supple, no stridor. [] Cardiovascular:Heart rate regular rhythm, no murmur [] Lungs & Thorax: Bilateral breath sounds clear to auscultation [] Abdomen: Bowel sounds normal, soft, no tenderness, no masses, no pulsatile masses. [] Skin: Warm, dry, no erythema, no rash. [] Back: No tenderness, no CVA tenderness. [] Extremities: no cyanosis, no clubbing,no edema. Lower legs contractured in 90� angle, permanent. Discomfort to mid femur noted, with minimal swelling and bruising, abrasion noted at site. [] Neurologic: Alert and oriented X 3, normal motor function, normal sensory function, no focal deficits noted. [] Psychologic: Affect normal, judgement normal, mood normal. [] Current Patient Data Vital Signs Vital Signs Date Time Temp Pulse Resp B/P (MAP) Pulse Ox O2 Delivery O2 Flow Rate FiO2 10/06/18 16:34 87 16 97 10/06/18 11:50 98.7 178/82 (114) Room Air 98.7 Lab Values Laboratory Tests Test 10/06/18 12:05 White Blood Count 16.8 x10^3/uL (4.0-11.0) H Red Blood Count 3.02 x10^6/uL (3.50-5.40) L Hemoglobin 8.7 g/dL (12.0-15.5) L Hematocrit 26.1 % (36.0-47.0) L Mean Corpuscular Volume 87 fL (79-100) Mean Corpuscular Hemoglobin 29 pg (25-35) Mean Corpuscular Hemoglobin Concent 33 g/dL (31-37) Red Cell Distribution Width 14.7 % (11.5-14.5) H Platelet Count 188 x10^3/uL (140-400) Neutrophils (%) (Auto) 94 % (31-73) H Lymphocytes (%) (Auto) 2 % (24-48) L Monocytes (%) (Auto) 4 % (0-9) Eosinophils (%) (Auto) 0 % (0-3) Basophils (%) (Auto) 0 % (0-3) Neutrophils # (Auto) 15.8 x10^3/uL (1.8-7.7) H Lymphocytes # (Auto) 0.3 x10^3/uL (1.0-4.8) L Monocytes # (Auto) 0.6 x10^3/uL (0.0-1.1) Eosinophils # (Auto) 0.0 x10^3/uL (0.0-0.7) Basophils # (Auto) 0.1 x10^3/uL (0.0-0.2) Segmented Neutrophils % 93 % (35-66) H Band Neutrophils % 1 % (0-9) Lymphocytes % 3 % (24-48) L Monocytes % 3 % (0-10) Platelet Estimate Adequate (ADEQUATE) Large Platelets Present Sodium Level 138 mmol/L (136-145) Potassium Level 4.4 mmol/L (3.5-5.1) Chloride Level 102 mmol/L (98-107) Carbon Dioxide Level 23 mmol/L (21-32) Anion Gap 13 (6-14) Blood Urea Nitrogen 42 mg/dL (7-20) H Creatinine 1.8 mg/dL (0.6-1.0) H Estimated GFR (Cockcroft-Gault) 27.1 Glucose Level 163 mg/dL (70-99) H Calcium Level 8.0 mg/dL (8.5-10.1) L Laboratory Tests 10/06/18 12:05 Laboratory Tests 10/06/18 12:05 EKG EKG [] Radiology/Procedures Radiology/Procedures []IMPRESSION: No consolidating infiltrate. Two-view left femur Fracture of the midshaft of the femur, at the distal aspect of the proximal intramedullary aaron, including the level of the distal interlocking screw. The distal fragment is displaced posteriorly and laterally, and demonstrates proximal overriding. Generalized bone demineralization. There is a partially visualized knee replacement with long distal femoral stem. This is contained within the distal femoral fragment. IMPRESSION: Displaced fracture of the mid femoral shaft with overriding. AP pelvis with left hip There is varus angulation of the left femoral neck with some increased density across the left femoral neck. It is not possible to determine if this is due to patient's old left femoral neck fracture versus superimposed new femoral neck fracture. No evidence of dislocation. Generalized bone demineralization. There IMPRESSION: Left femoral neck fracture with varus angulation may all be chronic from the patient's preoperative fracture, as seen on radiographs from January 19, 2017. But superimposed acute femoral neck fracture is difficult to exclude. Electronically signed by: Steve Colindres MD (10/06/2018 2:26 PM) [facility] Course & Med Decision Making Course & Med Decision Making Pertinent Labs and Imaging studies reviewed. (See chart for details) Discussed with Dr Breen, orthopedics, reviews images. Advises he does not believe he can manage the fracture here, recommends transfer for probable plate or bone grafting. [Discussed with [facility], agrees to accept patient for Ortho transfer, Dr Piter Villalobos. Patient in agreement with plan for transfer without further questions] Dragon Disclaimer Dragon Disclaimer This electronic medical record was generated, in whole or in part, using a voice recognition dictation system. Departure Departure Impression: Primary Impression: Left femoral shaft fracture Disposition: 02 TRANSFER [facility] Condition: STABLE Referrals: CHARLOTTE VUONG MD (PCP) Problem Qualifiers Primary Impression: Left femoral shaft fracture Encounter type: subsequent encounter Fracture type: closed Fracture morphology: other fracture Fracture healing: with nonunion Qualified Codes: S72.392K - Other fracture of shaft of left femur, subsequent encounter for closed fracture with nonunion BRUNILDA MILIAN APRN Oct 06, 2018 12:07
[2018-10-06] MEDS ORDERED: MORPHINE SULFATE 2 MG/ML VIAL. IV PRN (12:15)
[2018-10-06 12:20] LABS: BASO # 0.1 x10^3/uL (0.0-0.2); BASO % 0 % (0-3); EOS % 0 % (0-3); HEMATOCRIT 26.1 % (36.0-47.0); HEMOGLOBIN 8.7 g/dL (12.0-15.5); LYMPH # 0.3 x10^3/uL (1.0-4.8); LYMPH % 2 % (24-48); MEAN CORPUSCULAR HEMOGLOBIN 29 pg (25-35); MEAN CORPUSCULAR HGB CONC 33 g/dL (31-37); MEAN CORPUSCULAR VOLUME 87 fL (79-100); MONO # 0.6 x10^3/uL (0.0-1.1); MONO % 4 % (0-9); NEUT # 15.8 x10^3/uL (1.8-7.7); NEUT % 94 % (31-73); PLATELET COUNT 188 x10^3/uL (140-400); RED BLOOD COUNT 3.02 x10^6/uL (3.50-5.40); RED CELL DISTRIBUTION WIDTH 14.7 % (11.5-14.5); WHITE BLOOD COUNT 16.8 x10^3/uL (4.0-11.0)
[2018-10-06 12:27] LABS: CREATININE 1.8 mg/dL (0.6-1.0); GFR 27.1; POTASSIUM 4.4 mmol/L (3.5-5.1)
[2018-10-06] MEDS ORDERED: fentaNYL PF VIAL 100 MCG/2 ML VIAL IV ONE ×3 (12:30→16:30)
[2018-10-06] MEDS ORDERED: ONDANSETRON PF 4 MG/2 ML VIAL. ONE (12:46)
[2018-10-06] MEDS ORDERED: ONDANSETRON PF 4 MG/2 ML VIAL. IV ONE (13:00)
[2018-10-06 13:03] LABS: % BANDS 1 % (0-9); % LYMPHS 3 % (24-48); % MONOS 3 % (0-10); % SEGS 93 % (35-66); PLT ESTIMATE ADEQUATE (ADEQUATE)
--- NOTE | 2018-10-06 14:29 | RAD ---
CHEST AP ONLY, HIP LEFT 1 VIEW WITH PELVIS, LEFT FEMUR XRAY History: Left hip pain after a fall. Single view chest AP Comparison made with 11/20/2017. The cardiac silhouette is stable. Aortic calcification again seen with aortic tortuosity. No evidence of pneumothorax. No pleural effusion. No consolidating infiltrate. There are diffuse interstitial opacities which are similar to the prior study, likely due to chronic interstitial disease or fibrosis. Severe degenerative changes at both shoulders with evidence of rotator cuff disease are again identified. IMPRESSION: No consolidating infiltrate. Two-view left femur Fracture of the midshaft of the femur, at the distal aspect of the proximal intramedullary aaron, including the level of the distal interlocking screw. The distal fragment is displaced posteriorly and laterally, and demonstrates proximal overriding. Generalized bone demineralization. There is a partially visualized knee replacement with long distal femoral stem. This is contained within the distal femoral fragment. IMPRESSION: Displaced fracture of the mid femoral shaft with overriding. AP pelvis with left hip There is varus angulation of the left femoral neck with some increased density across the left femoral neck. It is not possible to determine if this is due to patient's old left femoral neck fracture versus superimposed new femoral neck fracture. No evidence of dislocation. Generalized bone demineralization. There IMPRESSION: Left femoral neck fracture with varus angulation may all be chronic from the patient's preoperative fracture, as seen on radiographs from January 19, 2017. But superimposed acute femoral neck fracture is difficult to exclude. Electronically signed by: Steve Colindres MD (10/06/2018 2:26 PM) [facility]
[2018-10-06 16:34] VITALS: BP 155/68
== END 2018-10-06 16:30 | disposition short-term general hospital (02) ==
LOC: ER 11:43
DX: S72.392 Other fracture of shaft of left femur (principal); S72.302A Unspecified fracture of shaft of left femur, initial encounter for closed fracture; E03.9 Hypothyroidism, unspecified; E11.9 Type 2 diabetes mellitus without complications; K21.9 Gastro-esophageal reflux disease without esophagitis; E78.00 Pure hypercholesterolemia, unspecified; G89.29 Other chronic pain; W18.39XA Other fall on same level, initial encounter; Y93.89 Activity, other specified; Y92.89 Other specified places as the place of occurrence of the external cause; Y99.8 Other external cause status
CPT/HCPCS: 36415; 71045; 73501; 73552; 80048; 85007; 85025; 96374; 96375; 96376; 99285; J2270; J2405; J3010

== ENCOUNTER 2018-10-29 13:08 | Emergency (ER) | payer MEDICARE ==
[~2018-10-29] VITALS: Ht 157.5 cm; Wt 46.3 kg
--- NOTE | 2018-10-29 13:33 | RAD ---
Single view of the chest. 10/29/2018 1:12 PM Indication: Anemia Comparison: Chest radiograph October 06, 2018. Findings: No pneumothorax, pleural effusion, or focal consolidative infiltrate is seen. Postoperative changes right midlung again noted. Heart size is stable. Bony thorax appears grossly stable. Severe degenerative changes of the bilateral shoulders right greater than left noted. IMPRESSION: Grossly stable radiographic appearance of the chest Electronically signed by: Jarrett Cespedes MD (10/29/2018 1:30 PM) [id number]
[2018-10-29 14:14] LABS: BASO % 0 % (0-3); EOS % 0 % (0-3); HEMATOCRIT 23.2 % (36.0-47.0); HEMOGLOBIN 7.6 g/dL (12.0-15.5); LYMPH # 0.6 x10^3/uL (1.0-4.8); LYMPH % 6 % (24-48); MEAN CORPUSCULAR HEMOGLOBIN 28 pg (25-35); MEAN CORPUSCULAR HGB CONC 33 g/dL (31-37); MEAN CORPUSCULAR VOLUME 87 fL (79-100); MONO # 0.4 x10^3/uL (0.0-1.1); MONO % 4 % (0-9); NEUT # 9.5 x10^3/uL (1.8-7.7); NEUT % 90 % (31-73); PLATELET COUNT 392 x10^3/uL (140-400); RED BLOOD COUNT 2.68 x10^6/uL (3.50-5.40); RED CELL DISTRIBUTION WIDTH 15.3 % (11.5-14.5); WHITE BLOOD COUNT 10.6 x10^3/uL (4.0-11.0)
[2018-10-29 14:21] LABS: PROTHROMBIN TIME PATIENT 16.6 SEC (11.7-14.0)
[2018-10-29 14:30] LABS: CALCIUM 9.4 mg/dL (8.5-10.1); GFR 23.9; POTASSIUM 4.7 mmol/L (3.5-5.1)
[2018-10-29 14:37] LABS: ALBUMIN/GLOBULIN RATIO 0.3 (1.0-1.7); MAGNESIUM 1.8 mg/dL (1.8-2.4); TOTAL BILIRUBIN 0.5 mg/dL (0.2-1.0); TOTAL PROTEIN 8.8 g/dL (6.4-8.2)
[2018-10-29 15:06] LABS: % BANDS 1 % (0-9); % LYMPHS 3 % (24-48); % MONOS 8 % (0-10); % SEGS 88 % (35-66)
[2018-10-29 15:08] LABS: PLT ESTIMATE ADEQUATE (ADEQUATE); POLYCHROMASIA SLIGHT
--- NOTE | 2018-10-29 15:15 | PHYS DOC ---
Past Medical History Past Medical History: Anemia, Arthritis, Arrhythmia, Diabetes-Type II, GERD, High Cholesterol, Hypothyroid, Renal Disease, Other Additional Past Medical Histor: OSTEOARTHRITIS, HEMORRHOIDS, CHRONIC PAIN, POLYPS, TUBULAR ADENOMA Past Surgical History: Appendectomy, Cholecystectomy, Hysterectomy, Knee Replacement, Tonsillectomy, Other Additional Past Surgical Histo: POLYPECTOMY, HEMORRHOIDECTOMY, BILATERAL FOOT REPAIR Alcohol Use: None Drug Use: None Adult General Chief Complaint Chief Complaint: ANEMIA HPI HPI Patient is a 83 year old female resident of senior care with history of recent knee surgeries who presents via EMS with complaining of hemoglobin of 6.8. Patient had blood test today and her hemoglobin reported 6.8 and sent to ER for blood transfusion. Patient complaining of generalized weakness without hematemesis, melena, chest pain, shortness of breath, fever and chills, new focal neuro deficit. Review of Systems Review of Systems Constitutional: Denies fever or chills [] Eyes: Denies change in visual acuity, redness, or eye pain [] HENT: Denies nasal congestion or sore throat [] Respiratory: Denies cough or shortness of breath [] Cardiovascular: No additional information not addressed in HPI [] GI: Denies abdominal pain, nausea, vomiting, bloody stools or diarrhea [] : Denies dysuria or hematuria [] Musculoskeletal: Denies back pain, reports joint pain [] Integument: Denies rash or skin lesions [] Neurologic: Denies headache, focal weakness or sensory changes [] Endocrine: Denies polyuria or polydipsia [] All other systems were reviewed and found to be within normal limits, except as documented in this note. Allergies Allergies Allergies Coded Allergies Type Severity Reaction Last Updated Verified No Known Drug Allergies 07/05/17 No Physical Exam Physical Exam Constitutional: Well developed, mild distress, non-toxic appearance, pallor. [] HENT: Normocephalic, atraumatic. Eyes: PERRLA, EOMI, conjunctiva normal, no discharge. [] Neck: Normal range of motion, no tenderness, supple, no stridor. [] Cardiovascular:Heart rate regular rhythm, no murmur [] Lungs & Thorax: Bilateral breath sounds clear to auscultation [] Abdomen: Bowel sounds normal, soft, no tenderness, no masses, no pulsatile masses. [] Skin: Warm, dry, no erythema, no rash. [] Back: No tenderness, no CVA tenderness. [] Extremities: Left knee surgical scar and edema and marked tenderness with painful range of motion without sign of infection . Neurologic: Alert and oriented X 3, no focal deficits noted. [] Psychologic: Affect normal, judgement normal, mood normal. [] Current Patient Data Vital Signs Vital Signs Date Time Temp Pulse Resp B/P (MAP) Pulse Ox O2 Delivery O2 Flow Rate FiO2 10/29/18 16:00 86 16 103/50 (67) 95 Room Air 10/29/18 13:22 98.6 98.6 Lab Values Laboratory Tests Test 10/29/18 13:42 White Blood Count 10.6 x10^3/uL (4.0-11.0) Red Blood Count 2.68 x10^6/uL (3.50-5.40) L Hemoglobin 7.6 g/dL (12.0-15.5) L Hematocrit 23.2 % (36.0-47.0) L Mean Corpuscular Volume 87 fL (79-100) Mean Corpuscular Hemoglobin 28 pg (25-35) Mean Corpuscular Hemoglobin Concent 33 g/dL (31-37) Red Cell Distribution Width 15.3 % (11.5-14.5) H Platelet Count 392 x10^3/uL (140-400) Neutrophils (%) (Auto) 90 % (31-73) H Lymphocytes (%) (Auto) 6 % (24-48) L Monocytes (%) (Auto) 4 % (0-9) Eosinophils (%) (Auto) 0 % (0-3) Basophils (%) (Auto) 0 % (0-3) Neutrophils # (Auto) 9.5 x10^3/uL (1.8-7.7) H Lymphocytes # (Auto) 0.6 x10^3/uL (1.0-4.8) L Monocytes # (Auto) 0.4 x10^3/uL (0.0-1.1) Eosinophils # (Auto) 0.0 x10^3/uL (0.0-0.7) Basophils # (Auto) 0.0 x10^3/uL (0.0-0.2) Segmented Neutrophils % 88 % (35-66) H Band Neutrophils % 1 % (0-9) Lymphocytes % 3 % (24-48) L Monocytes % 8 % (0-10) Platelet Estimate Adequate (ADEQUATE) Polychromasia Slight Prothrombin Time 16.6 SEC (11.7-14.0) H Prothrombin Time INR 1.4 (0.8-1.1) H Sodium Level 135 mmol/L (136-145) L Potassium Level 4.7 mmol/L (3.5-5.1) Chloride Level 99 mmol/L (98-107) Carbon Dioxide Level 26 mmol/L (21-32) Anion Gap 10 (6-14) Blood Urea Nitrogen 51 mg/dL (7-20) H Creatinine 2.0 mg/dL (0.6-1.0) H Estimated GFR (Cockcroft-Gault) 23.9 BUN/Creatinine Ratio 26 (6-20) H Glucose Level 155 mg/dL (70-99) H Calcium Level 9.4 mg/dL (8.5-10.1) Magnesium Level 1.8 mg/dL (1.8-2.4) Total Bilirubin 0.5 mg/dL (0.2-1.0) Aspartate Amino Transferase (AST) 19 U/L (15-37) Alanine Aminotransferase (ALT) 7 U/L (14-59) L Alkaline Phosphatase 141 U/L (46-116) H VB-Mie-J-Type Natriuretic Peptide 2745 pg/mL (0-449) H Total Protein 8.8 g/dL (6.4-8.2) H Albumin 2.0 g/dL (3.4-5.0) L Albumin/Globulin Ratio 0.3 (1.0-1.7) L Laboratory Tests 10/29/18 13:42 Laboratory Tests 10/29/18 13:42 EKG EKG [] Radiology/Procedures Radiology/Procedures [] Course & Med Decision Making Course & Med Decision Making Pertinent Labs reviewed. (See chart for details) Evaluation of patient in ER showed 83-year-old male patient brought in by EMS because of hemoglobin of 6.8. Patient had mild pallor and history of chronic anemia. Hemoglobin was 7.6 patient did not have sign of active bleeding. Primary care physician Dr. Vuong was informed and agreed to send patient to rehabilitation. Dragon Disclaimer Dragon Disclaimer This electronic medical record was generated, in whole or in part, using a voice recognition dictation system. Departure Departure Impression: Primary Impression: Chronic anemia Additional Impressions: Chronic renal insufficiency Congestive heart failure Disposition: HOME, SELF-CARE (rehabilitation at 1526) Condition: STABLE Referrals: CHARLOTTE VUONG MD (PCP) Patient Instructions: Anemia, FAQs Additional Instructions: Continue current medication Follow-up with your primary care physician in 3-5 days Return to ER if not getting better Problem Qualifiers Additional Impressions: Chronic renal insufficiency Chronic kidney disease stage: unspecified stage Qualified Codes: N18.9 - Chronic kidney disease, unspecified Congestive heart failure Heart failure type: unspecified Heart failure chronicity: unspecified Qualified Codes: I50.9 - Heart failure, unspecified DAE MATTHEW MD Oct 29, 2018 15:15
[2018-10-29 16:00] VITALS: BP 103/50
== END 2018-10-29 17:09 | disposition home or self-care (01) ==
LOC: ER 13:08
DX: D64.9 Anemia, unspecified (principal); E11.22 Type 2 diabetes mellitus with diabetic chronic kidney disease; I13.0 Hypertensive heart and chronic kidney disease with heart failure and stage 1 through stage 4 chronic kidney disease, or unspecified chronic kidney disease; N18.9 Chronic kidney disease, unspecified; I50.9 Heart failure, unspecified; E78.00 Pure hypercholesterolemia, unspecified; K21.9 Gastro-esophageal reflux disease without esophagitis; E03.9 Hypothyroidism, unspecified; G89.29 Other chronic pain; Z90.89 Acquired absence of other organs; Z90.49 Acquired absence of other specified parts of digestive tract; Z90.710 Acquired absence of both cervix and uterus
CPT/HCPCS: 36415; 71045; 80053; 83735; 83880; 85007; 85025; 85610; 86850; 86900; 86901; 99285-25